=== PATIENT | male | born 1940 | race Caucasian/White ===

== ENCOUNTER 2019-07-05 16:19 | Emergency (ER) | payer MEDICARE, MEDICAID ==
--- OUTSIDE RECORDS SUMMARY | 2019-07-05 16:33 | XMS REPORT ---
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 Chronic Chronic Diagnosis Active Blade systolic systolic 05-18 Michael (congestive (congestive [id number] ) heart ) heart failure failure Paroxysmal Paroxysmal Diagnosis Active Blade atrial atrial 05-18 Michael fibrillatio fibrillatio [id number] n n 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 05-18 Michael mellitus mellitus [id number] without without complicatio complicatio ns ns Diverticuli Diverticuli Diagnosis Active Blade tis of tis of 05-18 Michael intestine, intestine, [id number] part part unspecified unspecified , without , without perforation perforation or abscess or abscess without without bleeding bleeding Anemia, Anemia, Diagnosis Active Blade unspecified unspecified 05-18 Michael [id number] Benign Benign Diagnosis Active Blade prostatic prostatic Michael hyperplasia hyperplasia [id number] without without lower lower urinary urinary tract tract symptoms symptoms Lymphocytop Lymphocytop Diagnosis Active Blade enia enia Michael [id number] Encounter Encounter Diagnosis Active Blade for mary ellen Rodriguez attention attention [id number] to to colostomy 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 (current) (current) Michael use of use of [id number] anticoagula anticoagula nts nts Personal Personal Diagnosis Active Blade history of history of Michael 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 (TIA), and (TIA), and cerebral cerebral infarction infarction without without residual residual deficits deficits Presence of Presence of Diagnosis Active Blade cardiac cardiac Michael pacemaker pacemaker [id number] Presence of Presence of Diagnosis Active Blade 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 [id number] Personal Personal Diagnosis Active Blade history of history of Michael nicotine nicotine [id number] dependence dependence Problems Problems Diagnosis Active Blade related to related to Michael living living [id number] alone alone Pain frequent Pain Mgmt Resolve 2018-052019-04-20 [place] pain d 05-21 10:55:00 [place] 10:30: [id number] 00 Cardio edema Cardiovasc Active 2018-05 [place] ular 05-21 [place] 10:30: [id number] 00 Cardio knowledge/s Cardiovasc Active 2018-05 [place] kill ular 05-21 [place] deficit: pt 10:30: [id number] 00 Respiratory dyspnea Respirator Resolve 2018-052019-05-17 [place] present y d 05-21 10:45:00 [place] 10:30: [id number] 00 Endo/Justice newly Endo/Justice Resolve 2018-052019-04-08 Lolis diagnosed d 05-21 09:45:00 [place] diabetes 10:30: [id number] 00 Endo/Justice diabetic Endo/Justice Resolve 2018-052019-04-08 Lolis foot care d 05-21 09:45:00 [place] 10:30: [id number] 00 Endo/Justice anti-coagul Endo/Justice Resolve 2018-052019-04-08 Lolis ation d 05-21 09:45:00 [place] therapy 10:30: [id number] 00 Sensory impaired Sensory Resolve 2018-052019-04-27 [place] hearing d 05-21 10:45:00 [place] 10:30: [id number] 00 Integument skin Integument Resolve 2018-052019-03-30 Lolis integrity d 05-21 11:40:00 [place] risk 10:30: [id number] 00 Nutrition nutritional Nutrition Resolve 2018-052019-03-30 [place]olis restriction d 05-21 11:40:00 Elmer s 10:30: [id number] 00 Elimination ostomy Eliminatio Resolve 2018-052019-03-30 [place] present n d 05-21 11:40:00 [place] 10:30: [id number] 00 Neuro confusion Neuro/Emot Resolve 2018-052019-05-17 [place] present ion d 05-21 10:45:00 [place] 10:30: [id number] 00 Neuro impaired Neuro/Emot Resolve 2018-052019-05-17 [place]olis decision-ma ion d 05-21 10:45:00 [place] nir 10:30: [id number] 00 Activity ADL Activity Resolve 2018-052019-05-17 [place] assistance d 05-21 10:45:00 [place] required 10:30: [id number] 00 Activity self-care Activity Resolve 2018-052019-04-27 [place] deficit d 05-21 10:45:00 [place] 10:30: [id number] 00 Safety structural Safety Resolve 2018-052019-05-05 Lolis barriers d 05-21 10:55:00 [place] present 10:30: [id number] 00 Safety fall risk Safety Resolve 2018-052019-05-05 Lolis factor d 05-21 10:55:00 [place] present 10:30: [id number] 00 Safety risk for Safety Resolve 2018-052019-05-05 Lolis hospitaliza d 05-21 10:55:00 [place] tion 10:30: [id number] 00 Safety can be left Safety Active 2018-05 [place]olis alone for 05-21 [place] only short 10:30: [id number] periods 00 Safety safety Safety Resolve 2018-052019-05-05 QUALITY hazards d 05-21 10:55:00 REALTIME present 10:30: 00 Medication oral med Meds Resolve 2018-052019-04-20 [place]olis assistance d 05-21 10:55:00 [place] required 10:30: [id number] 00 Medication knowledge/s Meds Resolve 2018-052019-04-20 [place]olis kill d 05-21 10:55:00 [place] deficit: pt 10:30: [id number] 00 Musculoskel transfer Musculoske Resolve 2018-052019-04-27 [place]olis etal assistance letal d 05-21 10:45:00 [place] required 10:30: [id number] 00 Musculoskel requires Musculoske Resolve 2018-052019-04-27 Lolis etal human letal d 05-21 10:45:00 [place] assist to 10:30: [id number] leave home 00 Cath/Ostomy k/s Cath\Ostom Resolve 2018-052019-03-30 [place] /GI deficit: y\GI Care d 05-21 11:40:00 [place] cath/ost/GI 10:30: [id number] care - pt 00 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/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/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 PT/OT: Resolve 2018-052019-05-17 Jaquan urance rdination Balance/En d 05-21 10:45:00 [place] deficit durance 12:07: [id number] 00 OT: Self self-care OT: Resolve 2018-052019-05-17 Jaquan Care deficit Self-Care d 05-21 10:45:00 [place] 12:07: [id number] 00 Gait/Locomo stair PT/OT: Resolve 2018-052019-05-17 Jaquan tion management Gait/Locom d 05-21 10:45:00 [place] problems req otion 12:07: [id number] 00 Gait/[place] gait PT/OT: Resolve 2018-052019-05-17 Jaquan tion deficit Gait/Locom d 05-21 10:45:00 [place] problems otion 12:07: [id number] 00 Elimination ostomy Eliminatio Resolve 2018-052019-04-20 Blade present n d 06-01 10:55:00 Michael 09:55: [id number] 00 Elimination urinary Eliminatio Resolve 2018-052019-05-17 Blade incontinenc n d 2- 10:45:00 Michael coronel 10:45: [id number] 00 Elimination ostomy Eliminatio Resolve 2018-052019-05-17 Blade present n d 2-11 10:45:00 Michael 10:45: [id number] 00 Safety risk for Safety Active 2018-05 Blade hospitaliza 07-11 Michael tion 10:50: [id number] 00 Activity ADL Activity Unknown 2018-05 Blade assistance Rodriguez required 10:45: [id number] 00 Safety fall risk Safety Active 2018-05 Blade factor Rodriguez present 10:45: [id number] 00 Sensory impaired Sensory Active 2019- Cherrise hearing 06-07 [place] 11:30: [id number] 00 Elimination urinary Eliminatio Active 2019-0 Cherrise incontinenc n 06-07 [place]is e 11:30: [id number] 00 Elimination urinary Eliminatio Active Cherrise urgency n 06-07 [place] 11:30: [id number] 00 Elimination ostomy Eliminatio Active 2019-0 Cherrise present n 06-07 [employer] 11:30: [id number] 00 Neuro impaired Neuro/Emot Active Cherrise decision-ma ion 06-07 [employer] nir 11:30: [id number] 00 Safety structural Safety Active Cherrise barriers 06-07 [employer] present 11:30: [id number] 00 Safety sanitation Safety Active Cherrise hazards 06-[address] [employer] present 11:30: [id number] 00 Musculoskel requires Musculoske Active Cherrise etal human letal 06-07 [employer] assist to 11:30: [id number] leave home 00 Allergies, Adverse Reactions, Alerts Allergy Allergy Status Severity Reaction(s) Onset Inactive Treating Comments Name Type Date Date Clinician Unknown None Active Unknown None Unknown No Known Allergies For This Patient Medications Ordered Filled Start Stop Current Ordering Indication Dosage Frequency Signature Comments Components Medication Medication Date Date Medication? Clinician (SIG) Name Name Eliquis 2.5 Eliquis 2.5 2018-05 Yes [place] Unknown Unknown mg tablet mg tablet -04 Fatimah STRONG metoprolol metoprolol 2018-05 Yes [place] Unknown Unknown tartrate tartrate -04 Fatimah STRONG 100 mg 100 mg tablet tablet Cardizem CD Cardizem CD 2018-05 Yes [place] Unknown Unknown 120 mg 120 mg 1-04 Fatimah STRONG capsule,ext capsule,ext ended ended release release multivitami multivitami 2018-05 Yes [place] Unknown Unknown n with n with - Fatimah STRONG minerals minerals tablet tablet Co Q-10 150 Co Q-10 150 2018-05 Yes [place] Unknown Unknown mg capsule mg capsule 1-04 Fatimah STRONG niacin ER niacin ER 2018-05 Yes [place] Unknown Unknown 250 mg 250 mg 1-04 Fatimah STRONG tablet,exte tablet,exte nded nded release release iron 27mg iron 27mg 2018-05 Yes [place] Unknown Unknown 1-04 Fatimah STRONG pravastatin pravastatin 2018-05 Yes [place] Unknown Unknown 40 mg 40 mg - Fatimah STRONG tablet tablet Vital Signs Vital Name Observation Time Observation Value Comments SYSTOLIC mm[Hg] 2019-06-14 18:10:06 118 mm[Hg] mm[Hg] Method: Sit SYSTOLIC mm[Hg] 2019-03-21 18:08:41 128 mm[Hg] mm[Hg] Method: Stand DIASTOLIC mm[Hg] 2019-06-14 18:10:06 64 mm[Hg] mm[Hg] Method: Sit DIASTOLIC mm[Hg] 2019-03-21 18:08:41 70 mm[Hg] mm[Hg] Method: Stand PULSE 2019-06-14 18:10:06 64 /min /min RESP RATE 2019-06-14 18:10:06 16 /min /min TEMP 2019-06-14 18:10:06 96.9 [degF] Procedures This patient has no known procedures. Results This patient has no known results.
--- OUTSIDE RECORDS SUMMARY | 2019-07-05 16:33 | XMS REPORT ---
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 05-18 Michael (congestive (congestive [id number] ) heart ) heart failure failure Paroxysmal Paroxysmal Diagnosis Active Blade atrial atrial 05-18 Michael fibrillatio fibrillatio [id number] n n 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 05-18 Michael mellitus mellitus [id number] without without complicatio complicatio ns ns Diverticuli Diverticuli Diagnosis Active Blade tis of tis of 05-18 Michael intestine, intestine, [id number] part part unspecified unspecified , without , without perforation perforation or abscess or abscess without without bleeding bleeding Anemia, Anemia, Diagnosis Active Blade unspecified unspecified 05-18 Michael [id number] Benign Benign Diagnosis Active Blade prostatic prostatic Michael hyperplasia hyperplasia [id number] without without lower lower urinary urinary tract tract symptoms symptoms Lymphocytop Lymphocytop Diagnosis Active Blade enia enia Michael [id number] Encounter Encounter Diagnosis Active Blade for mary ellen Rodriguez attention attention [id number] to to colostomy colostomy [facility] Diagnosis Active Blade (current) (current) Michael use of use of [id number] anticoagula anticoagula nts nts Personal Personal Diagnosis Active Blade history of history of Michael transient transient [id number] ischemic ischemic attack attack (TIA), and (TIA), and cerebral cerebral infarction infarction without without residual residual deficits deficits Presence of Presence of Diagnosis Active Blade cardiac cardiac Michael pacemaker pacemaker [id number] Presence of Presence of Diagnosis Active Blade 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 [id number] Personal Personal Diagnosis Active Blade history of history of Michael nicotine nicotine [id number] dependence dependence Problems Problems Diagnosis Active Blade related to related to Michael living living [id number] alone alone Pain frequent Pain Mgmt Resolve 2018-052019-04-20 [place] pain d 05-21 10:55:00 [place] 10:30: [id number] 00 Cardio edema Cardiovasc Active 2018-05 [place] ular 05-21 [place] 10:30: [id number] 00 Cardio knowledge/s Cardiovasc Active 2018-05 [place] kill ular 05-21 [place] deficit: pt 10:30: [id number] 00 Respiratory dyspnea Respirator Resolve 2018-052019-05-17 [place] present y d 05-21 10:45:00 [place] 10:30: [id number] 00 Endo/Justice newly Endo/Justice Resolve 2018-052019-04-08 [place] diagnosed d 05-21 09:45:00 [place] diabetes 10:30: [id number] 00 Endo/Justice diabetic Endo/Justice Resolve 2018-052019-04-08 [place] foot care d 05-21 09:45:00 [place] 10:30: [id number] 00 Endo/Justice anti-coagul Endo/Justice Resolve 2018-052019-04-08 [place] ation d 05-21 09:45:00 [place] therapy 10:30: [id number] 00 Sensory impaired Sensory Resolve 2018-052019-04-27 [place] hearing d 05-21 10:45:00 [place] 10:30: [id number] 00 Integument skin Integument Resolve 2018-052019-03-30 [place] integrity d 05-21 11:40:00 [place] risk 10:30: [id number] 00 Nutrition nutritional Nutrition Resolve 2018-052019-03-30 [place] restriction d 05-21 11:40:00 [place] s 10:30: [id number] 00 Elimination ostomy Eliminatio Resolve 2018-052019-03-30 [place] present n d 05-21 11:40:00 [place] 10:30: [id number] 00 Neuro confusion Neuro/Emot Resolve 2018-052019-05-17 [place] present ion d 05-21 10:45:00 [place] 10:30: [id number] 00 Neuro impaired Neuro/Emot Resolve 2018-052019-05-17 [place] decision-ma ion d 05-21 10:45:00 [place] nir 10:30: [id number] 00 Activity ADL Activity Resolve 2018-052019-05-17 [place] assistance d 05-21 10:45:00 [place] required 10:30: [id number] 00 Activity self-care Activity Resolve 2018-052019-04-27 [place] deficit d 05-21 10:45:00 [place] 10:30: [id number] 00 Safety structural Safety Resolve 2018-052019-05-05 [place] barriers d 05-21 10:55:00 [place] present 10:30: [id number] 00 Safety fall risk Safety Resolve 2018-052019-05-05 [place] factor d 05-21 10:55:00 [place] present 10:30: [id number] 00 Safety risk for Safety Resolve 2018-052019-05-05 [place] hospitaliza d 05-21 10:55:00 [place] tion 10:30: [id number] 00 Safety can be left Safety Active 2018-05 [place] alone for 05-21 [place] only short 10:30: [id number] periods 00 Safety safety Safety Resolve 2018-052019-05-05 QUALITY hazards d 05-21 10:55:00 REALTIME present 10:30: 00 Medication oral med Meds Resolve 2018-052019-04-20 [place] assistance d 05-21 10:55:00 [place] required 10:30: [id number] 00 Medication knowledge/s Meds Resolve 2018-052019-04-20 [place] kill d 05-21 10:55:00 [place] deficit: pt 10:30: [id number] 00 Musculoskel transfer Musculoske Resolve 2018-052019-04-27 [place] etal assistance letal d 05-21 10:45:00 Foreign required 10:30: [id number] 00 Musculoskel requires Musculoske Resolve 2018-052019-04-27 [place] etal human letal d 05-21 10:45:00 [place] assist to 10:30: [id number] leave home 00 Cath/Ostomy k/s Cath\Ostom Resolve 2018-052019-03-30 [place] /GI deficit: y\GI Care d 05-21 11:40:00 [place] cath/ost/GI 10:30: [id number] care - pt 00 Balance/End 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/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 PT/OT: Resolve 2018-052019-05-17 Jaquan onealance rdination Balance/En d 05-21 10:45:00 [place] deficit durance 12:07: [id number] 00 OT: Self self-care OT: Resolve 2018-052019-05-17 Jaquan Care deficit Self-Care d 05-21 10:45:00 [place] 12:07: [id number] 00 Gait/Locomo stair PT/OT: Resolve 2018-052019-05-17 Jaquan tion management Gait/Locom d 05-21 10:45:00 [place] problems req otion 12:07: [id number] 00 Gait/[place] gait PT/OT: Resolve 2018-052019-05-17 Jaquan tion deficit Gait/Locom d 05-21 10:45:00 [place] problems otion 12:07: [id number] 00 Elimination ostomy Eliminatio Resolve 2018-052019-04-20 Blade present n d 1-15 10:55:00 Michael 09:55: [id number] 00 Elimination urinary Eliminatio Resolve 2018-052019-05-17 Blade incontinenc n d 2-11 10:45:00 Michael coronel 10:45: [id number] 00 Elimination ostomy Eliminatio Resolve 2018-052019-05-17 Blade present n d 2-11 10:45:00 Michael 10:45: [id number] 00 Safety risk for Safety Active 2018-05 Blade hospitaliza 07-11 Michael tion 10:50: [id number] 00 Activity ADL Activity Unknown 2018-05 Blade assistance Rodriguez required 10:45: [id number] 00 Safety fall risk Safety Active 2018-05 Blade factor Rodriguez present 10:45: [id number] 00 Allergies, Adverse Reactions, Alerts Allergy Allergy Status Severity Reaction(s) Onset Inactive Treating Comments Name Type Date Date Clinician Unknown None Active Unknown None Unknown No Known Allergies For This Patient Medications Ordered Filled Start Stop Current Ordering Indication Dosage Frequency Signature Comments Components Medication Medication Date Date Medication? Clinician (SIG) Name Name Eliquis 2.5 Eliquis 2.5 2018-05 Yes [place] Unknown Unknown mg tablet mg tablet 05-21 Fatimah STRONG metoprolol metoprolol 2018-05 Yes [place] Unknown Unknown tartrate tartrate 1-04 Fatimah STRONG 100 mg 100 mg tablet tablet Cardizem CD Cardizem CD 2018-05 Yes [place] Unknown Unknown 120 mg 120 mg 1-04 Fatimah STRONG capsule,ext capsule,ext ended ended release release multivitami multivitami 2018-05 Yes [place] Unknown Unknown n with n with - Fatimah STRONG minerals minerals tablet tablet Co Q-10 150 Co Q-10 150 2018-05 Yes [place] Unknown Unknown mg capsule mg capsule -04 Fatimah STRONG niacin ER niacin ER 2018-05 Yes [place] Unknown Unknown 250 mg 250 mg -04 Fatimah STRONG tablet,exte tablet,exte nded nded release release iron 27mg iron 27mg 2018-05 Yes [place] Unknown Unknown 1-04 Fatimah STRONG pravastatin pravastatin 2018-05 Yes [place] Unknown Unknown 40 mg 40 mg - Fatimah STRONG tablet tablet Vital Signs Vital Name Observation Time Observation Value Comments SYSTOLIC mm[Hg] 2019-05-24 18:09:45 112 mm[Hg] mm[Hg] Method: Sit SYSTOLIC mm[Hg] 2019-03-21 18:08:41 128 mm[Hg] mm[Hg] Method: Stand DIASTOLIC mm[Hg] 2019-05-24 18:09:45 68 mm[Hg] mm[Hg] Method: Sit DIASTOLIC mm[Hg] 2019-03-21 18:08:41 70 mm[Hg] mm[Hg] Method: Stand PULSE 2019-05-24 18:09:45 72 /min /min RESP RATE 2019-05-24 18:09:45 16 /min /min TEMP 2019-05-24 18:09:45 98.1 [degF] Procedures This patient has no known procedures. Results This patient has no known results.
--- OUTSIDE RECORDS SUMMARY | 2019-07-05 16:33 | XMS REPORT ---
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 Chronic Chronic Diagnosis Active Blade systolic systolic 05-18 Michael (congestive (congestive [id number] ) heart ) heart failure failure Paroxysmal Paroxysmal Diagnosis Active Blade atrial atrial 05-18 Michael fibrillatio fibrillatio [id number] n n 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 05-18 Michael mellitus mellitus [id number] without without complicatio complicatio ns ns Diverticuli Diverticuli Diagnosis Active Blade tis of tis of 05-18 Michael intestine, intestine, [id number] part part unspecified unspecified , without , without perforation perforation or abscess or abscess without without bleeding bleeding Anemia, Anemia, Diagnosis Active Blade unspecified unspecified 05-18 Michael [id number] Benign Benign Diagnosis Active Blade prostatic prostatic Michael hyperplasia hyperplasia [id number] without without lower lower urinary urinary tract tract symptoms symptoms Lymphocytop Lymphocytop Diagnosis Active Blade enia enia Michael [id number] Encounter Encounter Diagnosis Active Blade for mary ellen Rodriguez attention attention [id number] to to colostomy colostomy 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 Blade (current) (current) Michael use of use of [id number] anticoagula anticoagula nts nts Personal Personal Diagnosis Active Blade history of history of Michael transient transient [id number] ischemic ischemic attack attack (TIA), and (TIA), and cerebral cerebral infarction infarction without without residual residual deficits deficits Presence of Presence of Diagnosis Active Blade cardiac cardiac Michael pacemaker pacemaker [id number] Presence of Presence of Diagnosis Active Blade 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 [id number] Personal Personal Diagnosis Active Blade history of history of Michael nicotine nicotine [id number] dependence dependence Problems Problems Diagnosis Active Blade related to related to Michael living living [id number] alone alone Pain frequent Pain Mgmt Resolve 2018-052019-04-20 [place] pain d 05-21 10:55:00 [place] 10:30: [id number] 00 Cardio edema Cardiovasc Active 2018-05 [place]olis ular 05-21 [place] 10:30: [id number] 00 Cardio knowledge/s Cardiovasc Active 2018-05 Lolis kill ular 05-21 [place] deficit: pt 10:30: [id number] 00 Respiratory dyspnea Respirator Resolve 2018-052019-05-17 Lolis present y d 05-21 10:45:00 [place] 10:30: [id number] 00 Endo/Justice newly Endo/Justice Resolve 2018-052019-04-08 Lolis diagnosed d 05-21 09:45:00 [place] diabetes 10:30: [id number] 00 Endo/Justice diabetic Endo/Justice Resolve 2018-052019-04-08 Lolis foot care d 05-21 09:45:00 [place] 10:30: [id number] 00 Endo/Justice anti-coagul Endo/Justice Resolve 2018-052019-04-08 Lolis ation d 05-21 09:45:00 [place] therapy 10:30: [id number] 00 Sensory impaired Sensory Resolve 2018-052019-04-27 Lolis hearing d 05-21 10:45:00 [place] 10:30: [id number] 00 Integument skin Integument Resolve 2018-052019-03-30 Lolis integrity d 05-21 11:40:00 [place] risk 10:30: [id number] 00 Nutrition nutritional Nutrition Resolve 2018-052019-03-30 Lolis restriction d 05-21 11:40:00 [place] s 10:30: [id number] 00 Elimination ostomy Eliminatio Resolve 2018-052019-03-30 Lolis present n d 05-21 11:40:00 [place] 10:30: [id number] 00 Neuro confusion Neuro/Emot Resolve 2018-052019-05-17 Lolis present ion d 05-21 10:45:00 [place] 10:30: [id number] 00 Neuro impaired Neuro/Emot Resolve 2018-052019-05-17 Lolis decision-ma ion d 05-21 10:45:00 [place] nir 10:30: [id number] 00 Activity ADL Activity Resolve 2018-052019-05-17 Lolis assistance d 05-21 10:45:00 [place] required 10:30: [id number] 00 Activity self-care Activity Resolve 2018-052019-04-27 Lolis deficit d 05-21 10:45:00 [place] 10:30: [id number] 00 Safety structural Safety Resolve 2018-052019-05-05 Lolis barriers d 05-21 10:55:00 [place] present 10:30: [id number] 00 Safety fall risk Safety Resolve 2018-052019-05-05 Lolis factor d 05-21 10:55:00 [place] present 10:30: [id number] 00 Safety risk for Safety Resolve 2018-052019-05-05 Lolis hospitaliza d 05-21 10:55:00 [place] tion 10:30: [id number] 00 Safety can be left Safety Active 2018-05 Lolis alone for 05-21 [place] only short 10:30: [id number] 00 Safety safety Safety Resolve 2018-052019-05-05 QUALITY hazards d 05-21 10:55:00 REALTIME present 10:30: 00 Medication oral med Meds Resolve 2018-052019-04-20 Lolis assistance d 05-21 10:55:00 [place] required 10:30: [id number] 00 Medication knowledge/s Meds Resolve 2018-052019-04-20 Lolis kill d 05-21 10:55:00 [place] deficit: pt 10:30: [id number] 00 Musculoskel transfer Musculoske Resolve 2018-052019-04-27 Lolis etal assistance letal d 05-21 10:45:00 [place] required 10:30: [id number] 00 Musculoskel requires Musculoske Resolve 2018-052019-04-27 Lolis etal human letal d 05-21 10:45:00 Foreign assist to 10:30: [id number] leave home 00 Cath/Ostomy k/s Cath\Ostom Resolve 2018-052019-03-30 Lolis /GI deficit: y\GI Care d 05-21 11:40:00 [place] cath/ost/GI 10:30: [id number] care - pt 00 Balance/End balance/pharmacy clinical coordinator PT/OT: Resolve 2018-052019-05-17 Jaquan urance rdination Balance/En d 05-21 10:45:00 [place] deficit durance 12:07: [id number] 00 OT: Self self-care OT: Resolve 2018-052019-05-17 Jaquan Care deficit Self-Care d 05-21 10:45:00 [place] 12:07: [id number] 00 Gait/Locomo stair PT/OT: Resolve 2018-052019-05-17 Jaquan tion management Gait/Locom d 05-21 10:45:00 [place] problems req otion 12:07: [id number] 00 Gait/Locomo gait PT/OT: Resolve 2018-052019-05-17 Jaquan tion deficit Gait/Locom d 05-21 10:45:00 [place] problems otion 12:07: [id number] 00 Elimination ostomy Eliminatio Resolve 2018-052019-04-20 Blade present n d 06-01 10:55:00 Michael 09:55: [id number] 00 Elimination urinary Eliminatio Resolve 2018-052019-05-17 Blade incontinenc n d 2- 10:45:00 Michael coronel 10:45: [id number] 00 Elimination ostomy Eliminatio Resolve 2018-052019-05-17 Blade present n d 2-11 10:45:00 Michael 10:45: [id number] 00 Safety risk for Safety Active 2018-05 Blade hospitaliza 07-11 Michael tion 10:50: [id number] 00 Activity ADL Activity Unknown 2018-05 Blade assistance Rodriguez required 10:45: [id number] 00 Safety fall risk Safety Active 2018-05 Blade factor Rodriguez present 10:45: [id number] 00 Sensory impaired Sensory Active 2019- Cherrise hearing 06-07 [place] 11:30: [id number] 00 Elimination urinary Eliminatio Active 2019-0 Cherrise incontinenc n 06-07 [place] e 11:30: [id number] 00 Elimination urinary Eliminatio Active Cherrise urgency n 06-07 [place] 11:30: [id number] 00 Elimination ostomy Eliminatio Active 2019-0 Cherrise present n 06-07 [place] 11:30: [id number] 00 Neuro impaired Neuro/Emot Active Cherrise decision-ma ion 06-07 [place] nir 11:30: [id number] 00 Safety structural Safety Active Cherrise barriers 06-07 [place] present 11:30: [id number] 00 Safety sanitation Safety Active Cherrise hazards 06-07 [place] present 11:30: [id number] 00 Musculoskel requires Musculoske Active Cherrise etal human letal 06-07 [place] assist to 11:30: [id number] leave home 00 Allergies, Adverse Reactions, Alerts Allergy Allergy Status Severity Reaction(s) Onset Inactive Treating Comments Name Type Date Date Clinician Unknown None Active Unknown None Unknown No Known Allergies For This Patient Medications Ordered Filled Start Stop Current Ordering Indication Dosage Frequency Signature Comments Components Medication Medication Date Date Medication? Clinician (SIG) Name Name Eliquis 2.5 Eliquis 2.5 2018-05 Yes [place] Unknown Unknown mg tablet mg tablet -04 Fatimah STRONG metoprolol metoprolol 2018-05 Yes [place] Unknown Unknown tartrate tartrate 1-04 Fatimah STRONG 100 mg 100 mg tablet tablet Cardizem CD Cardizem CD 2018-05 Yes [place] Unknown Unknown 120 mg 120 mg 1-04 Fatimah STRONG capsule,ext capsule,ext ended ended release release multivitami multivitami 2018-05 Yes [place] Unknown Unknown n with n with - Fatimah STRONG minerals minerals tablet tablet Co Q-10 150 Co Q-10 150 2018-05 Yes [place] Unknown Unknown mg capsule mg capsule 1-04 Fatimah STRONG niacin ER niacin ER 2018-05 Yes [place] Unknown Unknown 250 mg 250 mg 1-04 Fatimah STRONG tablet,exte tablet,exte nded nded release release iron 27mg iron 27mg 2018-05 Yes [place] Unknown Unknown 1-04 Fatimah STRONG pravastatin pravastatin 2018-05 Yes [place] Unknown Unknown 40 mg 40 mg -15 Fatimah STRONG tablet tablet Vital Signs Vital Name Observation Time Observation Value Comments SYSTOLIC mm[Hg] 2019-03-21 18:08:41 128 mm[Hg] mm[Hg] Method: Stand DIASTOLIC mm[Hg] 2019-03-21 18:08:41 70 mm[Hg] mm[Hg] Method: Stand Procedures This patient has no known procedures. Results This patient has no known results.
--- OUTSIDE RECORDS SUMMARY | 2019-07-05 16:33 | XMS REPORT ---
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 05-18 Michael (congestive (congestive [id number] ) heart ) heart failure failure Paroxysmal Paroxysmal Diagnosis Active Blade atrial atrial 05-18 Michael fibrillatio fibrillatio [id number] n n 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 05-18 Michael mellitus mellitus [id number] without without complicatio complicatio ns ns Diverticuli Diverticuli Diagnosis Active Blade tis of tis of 05-18 Michael intestine, intestine, [id number] part part unspecified unspecified , without , without perforation perforation or abscess or abscess without without bleeding bleeding Anemia, Anemia, Diagnosis Active Blade unspecified unspecified 05-18 Michael [id number] Benign Benign Diagnosis Active Blade prostatic prostatic Michael hyperplasia hyperplasia [id number] without without lower lower urinary urinary tract tract symptoms symptoms Lymphocytop Lymphocytop Diagnosis Active Blade enia enia Michael [id number] Encounter Encounter Diagnosis Active Blade for mary ellen Rodriguez attention attention [id number] to to colostomy 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 Active Blade (current) (current) Michael use of use of [id number] anticoagula anticoagula nts nts Personal Personal Diagnosis Active Blade history of history of Michael transient transient [id number] ischemic ischemic attack attack (TIA), and (TIA), and cerebral cerebral infarction infarction without without residual residual deficits deficits Presence of Presence of Diagnosis Active Blade cardiac cardiac Michael pacemaker pacemaker [id number] Presence of Presence of Diagnosis Active Blade 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 [id number] Personal Personal Diagnosis Active Blade history of history of Michael nicotine nicotine [id number] dependence dependence Problems Problems Diagnosis Active Blade related to related to Michael living living [id number] alone alone Pain frequent Pain Mgmt Resolve 2018-052019-04-20 Lolis pain d 05-21 10:55:00 [place] 10:30: [id number] 00 Cardio edema Cardiovasc Active 2018-05 [place]olis ular 05-21 [place] 10:30: [id number] 00 Cardio knowledge/s Cardiovasc Active 2018-05 Lolis kill ular 05-21 [place] deficit: pt 10:30: [id number] 00 Respiratory dyspnea Respirator Resolve 2018-052019-05-17 Lolis present y d 05-21 10:45:00 [place] 10:30: [id number] 00 Endo/Justice newly Endo/Justice Resolve 2018-052019-04-08 Lolis diagnosed d 05-21 09:45:00 [place] diabetes 10:30: [id number] 00 Endo/Justice diabetic Endo/Justice Resolve 2018-052019-04-08 Lolis foot care d 05-21 09:45:00 [place] 10:30: [id number] 00 Endo/Justice anti-coagul Endo/Justice Resolve 2018-052019-04-08 Lolis ation d 05-21 09:45:00 [place] therapy 10:30: [id number] 00 Sensory impaired Sensory Resolve 2018-052019-04-27 Lolis hearing d 05-21 10:45:00 [place] 10:30: [id number] 00 Integument skin Integument Resolve 2018-052019-03-30 Lolis integrity d 05-21 11:40:00 [place] risk 10:30: [id number] 00 Nutrition nutritional Nutrition Resolve 2018-052019-03-30 Lolis restriction d 05-21 11:40:00 [place] s 10:30: [id number] 00 Elimination ostomy Eliminatio Resolve 2018-052019-03-30 Lolis present n d 05-21 11:40:00 [place] 10:30: [id number] 00 Neuro confusion Neuro/Emot Resolve 2018-052019-05-17 Lolis present ion d 05-21 10:45:00 [place] 10:30: [id number] 00 Neuro impaired Neuro/Emot Resolve 2018-052019-05-17 Lolis decision-ma ion d 05-21 10:45:00 [place] nir 10:30: [id number] 00 Activity ADL Activity Resolve 2018-052019-05-17 Lolis assistance d 05-21 10:45:00 [place] required 10:30: [id number] 00 Activity self-care Activity Resolve 2018-052019-04-27 Lolis deficit d 05-21 10:45:00 [place] 10:30: [id number] 00 Safety structural Safety Resolve 2018-052019-05-05 Lolis barriers d 05-21 10:55:00 [place] present 10:30: [id number] 00 Safety fall risk Safety Resolve 2018-052019-05-05 Lolis factor d 05-21 10:55:00 [place] present 10:30: [id number] 00 Safety risk for Safety Resolve 2018-052019-05-05 Lolis hospitaliza d 05-21 10:55:00 [place] tion 10:30: [id number] 00 Safety can be left Safety Active 2018-05 Lolis alone for 05-21 [place] only short 10:30: [id number] 00 Safety safety Safety Resolve 2018-052019-05-05 QUALITY hazards d 05-21 10:55:00 REALTIME present 10:30: 00 Medication oral med Meds Resolve 2018-052019-04-20 Lolis assistance d 05-21 10:55:00 [place] required 10:30: [id number] 00 Medication knowledge/s Meds Resolve 2018-052019-04-20 Lolis kill d 05-21 10:55:00 [place] deficit: pt 10:30: [id number] 00 Musculoskel transfer Musculoske Resolve 2018-052019-04-27 Lolis etal assistance letal d 05-21 10:45:00 [place] required 10:30: [id number] 00 Musculoskel requires Musculoske Resolve 2018-052019-04-27 Lolis etal human letal d 05-21 10:45:00 [place] assist to 10:30: [id number] leave home 00 Cath/Ostomy k/s Cath\Ostom Resolve 2018-052019-03-30 Lolis /GI deficit: y\GI Care d 05-21 11:40:00 [place] cath/ost/GI 10:30: [id number] care - pt 00 Balance/End balance/orthodontic treatment coordinator PT/OT: Resolve 2018-052019-05-17 Jaquan urance rdination Balance/En d 05-21 10:45:00 [place] deficit durance 12:07: [id number] 00 OT: Self self-care OT: Resolve 2018-052019-05-17 Jaquan Care deficit Self-Care d 05-21 10:45:00 [place] 12:07: [id number] 00 Gait/Locomo stair PT/OT: Resolve 2018-052019-05-17 Jaquan tion management Gait/Locom d 05-21 10:45:00 [place] problems req otion 12:07: [id number] 00 Gait/[place]ocomo gait PT/OT: Resolve 2018-052019-05-17 Jaquan tion deficit Gait/Locom d 05-21 10:45:00 [place] problems otion 12:07: [id number] 00 Elimination ostomy Eliminatio Resolve 2018-052019-04-20 Blade present n d 06-01 10:55:00 Michael 09:55: [id number] 00 Elimination urinary Eliminatio Resolve 2018-052019-05-17 Blade incontinenc n d 2- 10:45:00 Michael coronel 10:45: [id number] 00 Elimination ostomy Eliminatio Resolve 2018-052019-05-17 Blade present n d 2-11 10:45:00 Michael 10:45: [id number] 00 Safety risk for Safety Active 2018-05 Blade hospitaliza 07-11 Michael tion 10:50: [id number] 00 Activity ADL Activity Unknown 2018-05 Blade assistance Rodriguez required 10:45: [id number] 00 Safety fall risk Safety Active 2018-05 Blade factor Rodriguez present 10:45: [id number] 00 Sensory impaired Sensory Active 2019- Cherrise hearing 06-07 [place] 11:30: [id number] 00 Elimination urinary Eliminatio Active 2019-0 Cherrise incontinenc n 06-07 [place] e 11:30: [id number] 00 Elimination urinary Eliminatio Active Cherrise urgency n 06-07 [place] 11:30: [id number] 00 Elimination ostomy Eliminatio Active 2019-0 Cherrise present n 06-07 [place] 11:30: [id number] 00 Neuro impaired Neuro/Emot Active Cherrise decision-ma ion 06-07 [place] nir 11:30: [id number] 00 Safety structural Safety Active Cherrise barriers 06-07 [place] present 11:30: [id number] 00 Safety sanitation Safety Active Cherrise hazards 06-07 [place] present 11:30: [id number] 00 Musculoskel requires Musculoske Active Cherrise etal human letal 06-07 [place] assist to 11:30: [id number] leave home 00 Allergies, Adverse Reactions, Alerts Allergy Allergy Status Severity Reaction(s) Onset Inactive Treating Comments Name Type Date Date Clinician Unknown None Active Unknown None Unknown No Known Allergies For This Patient Medications Ordered Filled Start Stop Current Ordering Indication Dosage Frequency Signature Comments Components Medication Medication Date Date Medication? Clinician (SIG) Name Name Eliquis 2.5 Eliquis 2.5 2018-05 Yes [place] Unknown Unknown mg tablet mg tablet 1-04 Fatimah STRONG metoprolol metoprolol 2018-05 Yes [place] Unknown Unknown tartrate tartrate 1-04 Fatimah STRONG 100 mg 100 mg tablet tablet Cardizem CD Cardizem CD 2018-05 Yes [place] Unknown Unknown 120 mg 120 mg 1-04 Fatimah STRONG capsule,ext capsule,ext ended ended release release multivitami multivitami 2018-05 Yes [place] Unknown Unknown n with n with - Fatimah STRONG minerals minerals tablet tablet Co Q-10 150 Co Q-10 150 2018-05 Yes [place] Unknown Unknown mg capsule mg capsule 1-04 Fatimah STRONG niacin ER niacin ER 2018-05 Yes [place] Unknown Unknown 250 mg 250 mg 1-04 Fatimah STRONG tablet,exte tablet,exte nded nded release release iron 27mg iron 27mg 2018-05 Yes [place] Unknown Unknown 1-04 Fatimah STRONG pravastatin pravastatin 2018-05 Yes [place] Unknown Unknown 40 mg 40 mg -15 Fatimah STRONG tablet tablet Vital Signs Vital Name Observation Time Observation Value Comments SYSTOLIC mm[Hg] 2019-06-07 18:09:59 132 mm[Hg] mm[Hg] Method: Sit SYSTOLIC mm[Hg] 2019-03-21 18:08:41 128 mm[Hg] mm[Hg] Method: Stand DIASTOLIC mm[Hg] 2019-06-07 18:09:59 64 mm[Hg] mm[Hg] Method: Sit DIASTOLIC mm[Hg] 2019-03-21 18:08:41 70 mm[Hg] mm[Hg] Method: Stand PULSE 2019-06-07 18:09:59 70 /min /min RESP RATE 2019-06-07 18:09:59 16 /min /min TEMP 2019-06-07 18:09:59 99.7 [degF] Procedures This patient has no known procedures. Results This patient has no known results.
--- OUTSIDE RECORDS SUMMARY | 2019-07-05 16:33 | XMS REPORT ---
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 with heart with heart failure failure Chronic Chronic Diagnosis Active Blade systolic systolic 05-18 Michael (congestive (congestive [id number] ) heart ) heart failure failure Paroxysmal Paroxysmal Diagnosis Active Blade atrial atrial 05-18 Michael fibrillatio fibrillatio [id number] n n 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 05-18 Michael mellitus mellitus [id number] without without complicatio complicatio ns ns Diverticuli Diverticuli Diagnosis Active Blade tis of tis of 05-18 Michael intestine, intestine, [id number] part part unspecified unspecified , without , without perforation perforation or abscess or abscess without without bleeding bleeding Anemia, Anemia, Diagnosis Active Blade unspecified unspecified 05-18 Michael [id number] Benign Benign Diagnosis Active Blade prostatic prostatic Michael hyperplasia hyperplasia [id number] without without lower lower urinary urinary tract tract symptoms symptoms Lymphocytop Lymphocytop Diagnosis Active Blade enia enia Michael [id number] Encounter Encounter Diagnosis Active Blade for mary ellen Rodriguez attention attention [id number] to to colostomy 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 Blade (current) (current) Michael use of use of [id number] anticoagula anticoagula nts nts Personal Personal Diagnosis Active Blade history of history of Michael 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 (TIA), and (TIA), and cerebral cerebral infarction infarction without without residual residual deficits deficits Presence of Presence of Diagnosis Active Blade cardiac cardiac Michael pacemaker pacemaker [id number] Presence of Presence of Diagnosis Active Blade 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 [id number] Personal Personal Diagnosis Active Blade history of history of Michael nicotine nicotine [id number] dependence dependence Problems Problems Diagnosis Active Blade related to related to Michael living living [id number] alone alone Pain frequent Pain Mgmt Resolve 2018-052019-04-20 Lolis pain d 05-21 10:55:00 [place] 10:30: [id number] 00 Cardio edema Cardiovasc Active 2018-05 [place]olis ular 05-21 [place] 10:30: [id number] 00 Cardio knowledge/s Cardiovasc Active 2018-05 Lolis kill ular 05-21 Cook deficit: pt 10:30: [id number] 00 Respiratory dyspnea Respirator Resolve 2018-052019-05-17 [place]olis present y d 05-21 10:45:00 [place] 10:30: [id number] 00 Endo/Justice newly Endo/Justice Resolve 2018-052019-04-08 Lolis diagnosed d 05-21 09:45:00 [place] diabetes 10:30: [id number] 00 Endo/Justice diabetic Endo/Justice Resolve 2018-052019-04-08 Lolis foot care d 05-21 09:45:00 [place] 10:30: [id number] 00 Endo/Justice anti-coagul Endo/Justice Resolve 2018-052019-04-08 Lolis ation d 05-21 09:45:00 Cook therapy 10:30: [id number] 00 Sensory impaired Sensory Resolve 2018-052019-04-27 Lolis hearing d 05-21 10:45:00 [place] 10:30: [id number] 00 Integument skin Integument Resolve 2018-052019-03-30 Lolis integrity d 05-21 11:40:00 [place] risk 10:30: [id number] 00 Nutrition nutritional Nutrition Resolve 2018-052019-03-30 Lolis restriction d 05-21 11:40:00 Cook s 10:30: [id number] 00 Elimination ostomy Eliminatio Resolve 2018-052019-03-30 Lolis present n d 05-21 11:40:00 [place] 10:30: [id number] 00 Neuro confusion Neuro/Emot Resolve 2018-052019-05-17 Lolis present ion d 05-21 10:45:00 [place] 10:30: [id number] 00 Neuro impaired Neuro/Emot Resolve 2018-052019-05-17 Lolis decision-ma ion d 05-21 10:45:00 [place] nir 10:30: [id number] 00 Activity ADL Activity Resolve 2018-052019-05-17 Lolis assistance d 05-21 10:45:00 [place] required 10:30: [id number] 00 Activity self-care Activity Resolve 2018-052019-04-27 Lolis deficit d 05-21 10:45:00 [place] 10:30: [id number] 00 Safety structural Safety Resolve 2018-052019-05-05 Lolis barriers d 05-21 10:55:00 Foreign present 10:30: [id number] 00 Safety fall risk Safety Resolve 2018-052019-05-05 Lolis factor d 05-21 10:55:00 [place] present 10:30: [id number] 00 Safety risk for Safety Resolve 2018-052019-05-05 Lolis hospitaliza d 05-21 10:55:00 Cook tion 10:30: [id number] 00 Safety can be left Safety Active 2018-05 Lolis alone for 05-21 Cook only short 10:30: [id number] periods 00 Safety safety Safety Resolve 2018-052019-05-05 QUALITY hazards d 05-21 10:55:00 REALTIME present 10:30: 00 Medication oral med Meds Resolve 2018-052019-04-20 Lolis assistance d 05-21 10:55:00 [place] required 10:30: [id number] 00 Medication knowledge/s Meds Resolve 2018-052019-04-20 Lolis kill d 05-21 10:55:00 Cook deficit: pt 10:30: [id number] 00 Musculoskel transfer Musculoske Resolve 2018-052019-04-27 Lolis etal assistance letal d 05-21 10:45:00 [place] required 10:30: [id number] 00 Musculoskel requires Musculoske Resolve 2018-052019-04-27 Lolis etal human letal d 05-21 10:45:00 Foreign assist to 10:30: [id number] leave home 00 Cath/Ostomy k/s Cath\Ostom Resolve 2018-052019-03-30 Lolis /GI deficit: y\GI Care d 05-21 11:40:00 Cook cath/ost/GI 10:30: [id number] care - pt 00 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 PT/OT: Resolve 2018-052019-05-17 Jaquan urance rdination Balance/En d 05-21 10:45:00 [place] deficit durance 12:07: [id number] 00 OT: Self self-care OT: Resolve 2018-052019-05-17 Jaquan Care deficit Self-Care d 05-21 10:45:00 [place] 12:07: [id number] 00 Gait/Locomo stair PT/OT: Resolve 2018-052019-05-17 Jaquan tion management Gait/Locom d 05-21 10:45:00 [place] problems req otion 12:07: [id number] 00 Gait/[place]ocomo gait PT/OT: Resolve 2018-052019-05-17 Jaquan tion deficit Gait/Locom d 05-21 10:45:00 [place] problems otion 12:07: [id number] 00 Elimination ostomy Eliminatio Resolve 2018-052019-04-20 Blade present n d 06-01 10:55:00 Michael 09:55: [id number] 00 Elimination urinary Eliminatio Resolve 2018-052019-05-17 Blade incontinenc n d 06-28 10:45:00 Michael coronel 10:45: [id number] 00 Elimination ostomy Eliminatio Resolve 2018-052019-05-17 Blade present n d - 10:45:00 Michael 10:45: [id number] 00 Safety risk for Safety Active 2018-05 Blade hospitaliza 07-11 Rodriguez tion 10:50: [id number] 00 Activity ADL Activity Unknown 2018-05 Blade assistance Rodriguez required 10:45: [id number] 00 Safety fall risk Safety Active 2018-05 Blade factor Rodriguez present 10:45: [id number] 00 Sensory impaired Sensory Active Cherrise hearing 06-07 [place] 11:30: [id number] 00 Elimination urinary Eliminatio Resolve 2019-06-21 Cherrise incontinenc n d 06-07 10:55:00 [place] e 11:30: [id number] 00 Elimination urinary Eliminatio Resolve 2019-06-21 Cherrise urgency n d 06-07 10:55:00 [place] 11:30: [id number] 00 Elimination ostomy Eliminatio Active Cherrise present n 06-07 [place] 11:30: [id number] 00 Neuro impaired Neuro/Emot Active Cherrise decision-ma ion 06-07 [place] nir 11:30: [id number] 00 Safety structural Safety Active Cherrise barriers 06-07 [place] present 11:30: [id number] 00 Safety sanitation Safety Active Cherrise hazards 06-07 [place] present 11:30: [id number] 00 Musculoskel requires Musculoske Active Cherrise etal human letal 06-07 [place] assist to 11:30: [id number] leave home 00 Allergies, Adverse Reactions, Alerts Allergy Allergy Status Severity Reaction(s) Onset Inactive Treating Comments Name Type Date Date Clinician Unknown None Active Unknown None Unknown No Known Allergies For This Patient Medications Ordered Filled Start Stop Current Ordering Indication Dosage Frequency Signature Comments Components Medication Medication Date Date Medication? Clinician (SIG) Name Name Eliquis 2.5 Eliquis 2.5 2018-05 No [place] Unknown Unknown mg tablet mg tablet 05-21 Fatimah STRONG metoprolol metoprolol 2018-05 No Victor Manuel Unknown Unknown tartrate tartrate 05-21 Fatimah STRONG 100 mg 100 mg tablet tablet Cardizem CD Cardizem CD 2018-05 No [place] Unknown Unknown 120 mg 120 mg 05-21 Fatimah STRONG capsule,ext capsule,ext ended ended release release multivitami multivitami 2018-05 No [place] Unknown Unknown n with n with 05-21 Fatimah STRONG minerals minerals tablet tablet Co Q-10 150 Co Q-10 150 2018-05 No [place] Unknown Unknown mg capsule mg capsule 05-21 Fatimah STRONG niacin ER niacin ER 2018-05 No [place] Unknown Unknown 250 mg 250 mg - Fatimah STRONG tablet,exte tablet,exte nded nded release release iron 27mg iron 27mg 2018-05 No [place] Unknown Unknown - Fatimah STRONG pravastatin pravastatin 2018-05 Yes Victor Manuel Unknown Unknown 40 mg 40 mg 06-01 Fatimah STRONG tablet tablet Vital Signs Vital Name Observation Time Observation Value Comments SYSTOLIC mm[Hg] 2019-06-21 18:10:13 132 mm[Hg] mm[Hg] Method: Sit SYSTOLIC mm[Hg] 2019-03-21 18:08:41 128 mm[Hg] mm[Hg] Method: Stand DIASTOLIC mm[Hg] 2019-06-21 18:10:13 72 mm[Hg] mm[Hg] Method: Sit DIASTOLIC mm[Hg] 2019-03-21 18:08:41 70 mm[Hg] mm[Hg] Method: Stand PULSE 2019-06-21 18:10:13 73 /min /min RESP RATE 2019-06-21 18:10:13 16 /min /min TEMP 2019-06-21 18:10:13 97.1 [degF] Procedures This patient has no known procedures. Results This patient has no known results.
--- OUTSIDE RECORDS SUMMARY | 2019-07-05 16:33 | XMS REPORT ---
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 [id number] with heart with heart failure failure Chronic Chronic Diagnosis Active Blade systolic systolic 05-18 Michael (congestive (congestive [id number] ) heart ) heart failure failure Paroxysmal Paroxysmal Diagnosis Active Blade atrial atrial 05-18 Michael fibrillatio fibrillatio [id number] n n 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 05-18 Michael mellitus mellitus [id number] without without complicatio complicatio ns ns Diverticuli Diverticuli Diagnosis Active Blade tis of tis of 05-18 [place] intestine, intestine, [id number] part part unspecified unspecified , without , without perforation perforation or abscess or abscess without without bleeding bleeding Anemia, Anemia, Diagnosis Active Blade unspecified unspecified 05-18 Michael [id number] Benign Benign Diagnosis Active Blade prostatic prostatic Michael hyperplasia hyperplasia [id number] without without lower lower urinary urinary tract tract symptoms symptoms Lymphocytop Lymphocytop Diagnosis Active Blade enia enia Michael [id number] Encounter Encounter Diagnosis Active Blade for mary ellen Rodriguez attention attention [id number] to to colostomy colostomy 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 (current) (current) Michael use of use of [id number] anticoagula anticoagula nts nts Personal Personal Diagnosis Active Blade history of history of Michael transient transient [id number] ischemic ischemic attack attack (TIA), and (TIA), and cerebral cerebral infarction infarction without without residual residual deficits deficits Presence of Presence of Diagnosis Active Blade cardiac cardiac Michael pacemaker pacemaker [id number] Presence of Presence of Diagnosis Active Blade 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 [id number] Personal Personal Diagnosis Active Blade history of history of Michael nicotine nicotine [id number] dependence dependence Problems Problems Diagnosis Active Blade related to related to Michael living living [id number] alone alone Pain frequent Pain Mgmt Resolve 2018-052019-04-20 Lolis pain d 05-21 10:55:00 [place] 10:30: [id number] 00 Cardio edema Cardiovasc Active 2018-05 [place] ular 05-21 [place] 10:30: [id number] 00 Cardio knowledge/s Cardiovasc Active 2018-05 [place]olis kill ular 05-21 [place] deficit: pt 10:30: [id number] 00 Respiratory dyspnea Respirator Resolve 2018-052019-05-17 Lolis present y d 05-21 10:45:00 [place] 10:30: [id number] 00 Endo/Justice newly Endo/Justice Resolve 2018-052019-04-08 Lolis diagnosed d 05-21 09:45:00 [place] diabetes 10:30: [id number] 00 Endo/Justice diabetic Endo/Justice Resolve 2018-052019-04-08 Lolis foot care d 05-21 09:45:00 [place] 10:30: [id number] 00 Endo/Justice anti-coagul Endo/Justice Resolve 2018-052019-04-08 Lolis ation d 05-21 09:45:00 [place] therapy 10:30: [id number] 00 Sensory impaired Sensory Resolve 2018-052019-04-27 Lolis hearing d 05-21 10:45:00 [place] 10:30: [id number] 00 Integument skin Integument Resolve 2018-052019-03-30 Lolis integrity d 05-21 11:40:00 [place] risk 10:30: [id number] 00 Nutrition nutritional Nutrition Resolve 2018-052019-03-30 Lolis restriction d 05-21 11:40:00 [place] s 10:30: [id number] 00 Elimination ostomy Eliminatio Resolve 2018-052019-03-30 Lolis present n d 05-21 11:40:00 [place] 10:30: [id number] 00 Neuro confusion Neuro/Emot Resolve 2018-052019-05-17 Lolis present ion d 05-21 10:45:00 [place] 10:30: [id number] 00 Neuro impaired Neuro/Emot Resolve 2018-052019-05-17 Lolis decision-ma ion d 05-21 10:45:00 [place] nir 10:30: [id number] 00 Activity ADL Activity Resolve 2018-052019-05-17 Lolis assistance d 05-21 10:45:00 [place] required 10:30: [id number] 00 Activity self-care Activity Resolve 2018-052019-04-27 Lolis deficit d 05-21 10:45:00 [place] 10:30: [id number] 00 Safety structural Safety Resolve 2018-052019-05-05 Lolis barriers d 05-21 10:55:00 Foreign present 10:30: [id number] 00 Safety fall risk Safety Resolve 2018-052019-05-05 Lolis factor d 05-21 10:55:00 [place] present 10:30: [id number] 00 Safety risk for Safety Resolve 2018-052019-05-05 Lolis hospitaliza d 05-21 10:55:00 [place] tion 10:30: [id number] 00 Safety can be left Safety Active 2018-05 [place]olis alone for 05-21 [place] only short 10:30: [id number] periods 00 Safety safety Safety Resolve 2018-052019-05-05 QUALITY hazards d 05-21 10:55:00 REALTIME present 10:30: 00 Medication oral med Meds Resolve 2018-052019-04-20 [place] assistance d 05-21 10:55:00 [place] required 10:30: [id number] 00 Medication knowledge/s Meds Resolve 2018-052019-04-20 [place] kill d 05-21 10:55:00 [place] deficit: pt 10:30: [id number] 00 Musculoskel transfer Musculoske Resolve 2018-052019-04-27 [place]olis etal assistance letal d 05-21 10:45:00 [place] required 10:30: [id number] 00 Musculoskel requires Musculoske Resolve 2018-052019-04-27 [place]olis etal human letal d 05-21 10:45:00 [place] assist to 10:30: [id number] leave home 00 Cath/Ostomy k/s Cath\Ostom Resolve 2018-052019-03-30 [place] /GI deficit: y\GI Care d 05-21 11:40:00 [place] cath/ost/GI 10:30: [id number] care - pt 00 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 PT/OT: Resolve 2018-052019-05-17 Jaquan urance rdination Balance/En d 05-21 10:45:00 [place] deficit durance 12:07: [id number] 00 OT: Self self-care OT: Resolve 2018-052019-05-17 Jaquan Care deficit Self-Care d 05-21 10:45:00 [place] 12:07: [id number] 00 Gait/Locomo stair PT/OT: Resolve 2018-052019-05-17 Jaquan tion management Gait/Locom d 05-21 10:45:00 [place] problems req otion 12:07: [id number] 00 Gait/[place]ocom[place] gait PT/OT: Resolve 2018-052019-05-17 Jaquan tion deficit Gait/Locom d 05-21 10:45:00 [place] problems otion 12:07: [id number] 00 Elimination ostomy Eliminatio Resolve 2018-052019-04-20 Blade present n d 06-01 10:55:00 Michael 09:55: [id number] 00 Elimination urinary Eliminatio Resolve 2018-052019-05-17 Blade incontinenc n d 2- 10:45:00 Michael coronel 10:45: [id number] 00 Elimination ostomy Eliminatio Resolve 2018-052019-05-17 Blade present n d 2-11 10:45:00 Michael 10:45: [id number] 00 Safety risk for Safety Active 2018-05 Blade hospitaliza 07-11 Michael tion 10:50: [id number] 00 Activity ADL Activity Unknown 2018-05 Blade assistance Rodriguez required 10:45: [id number] 00 Safety fall risk Safety Active 2018-05 Blade factor Rodriguez present 10:45: [id number] 00 Sensory impaired Sensory Active 2019- Cherrise hearing 06-07 [place] 11:30: [id number] 00 Elimination urinary Eliminatio Active 2019-0 Cherrise incontinenc n 06-07 [place] e 11:30: [id number] 00 Elimination urinary Eliminatio Active Cherrise urgency n 06-07 [place] 11:30: [id number] 00 Elimination ostomy Eliminatio Active 2019-0 Cherrise present n 06-07 [place] 11:30: [id number] 00 Neuro impaired Neuro/Emot Active Cherrise decision-ma ion 06-07 [place] nir 11:30: [id number] 00 Safety structural Safety Active Cherrise barriers 06-07 [place] present 11:30: [id number] 00 Safety sanitation Safety Active Cherrise hazards 06-07 [place] present 11:30: [id number] 00 Musculoskel requires Musculoske Active Cherrise etal human letal 06-07 [place] assist to 11:30: [id number] leave home 00 Allergies, Adverse Reactions, Alerts Allergy Allergy Status Severity Reaction(s) Onset Inactive Treating Comments Name Type Date Date Clinician Unknown None Active Unknown None Unknown No Known Allergies For This Patient Medications Ordered Filled Start Stop Current Ordering Indication Dosage Frequency Signature Comments Components Medication Medication Date Date Medication? Clinician (SIG) Name Name Eliquis 2.5 Eliquis 2.5 2018-05 Yes [place] Unknown Unknown mg tablet mg tablet 1-04 Fatimah STRONG metoprolol metoprolol 2018-05 Yes [place] Unknown Unknown tartrate tartrate 1-04 Fatimah STRONG 100 mg 100 mg tablet tablet Cardizem CD Cardizem CD 2018-05 Yes [place] Unknown Unknown 120 mg 120 mg 1-04 Fatimah STRONG capsule,ext capsule,ext ended ended release release multivitami multivitami 2018-05 Yes [place] Unknown Unknown n with n with - Fatimah STRONG minerals minerals tablet tablet Co Q-10 150 Co Q-10 150 2018-05 Yes [place] Unknown Unknown mg capsule mg capsule 1-04 Fatimah STRNOG niacin ER niacin ER 2018-05 Yes [place] Unknown Unknown 250 mg 250 mg 1-04 Fatimah STRONG tablet,exte tablet,exte nded nded release release iron 27mg iron 27mg 2018-05 Yes [place] Unknown Unknown 1-04 Fatimah STRONG pravastatin pravastatin 2018-05 Yes [place] Unknown Unknown 40 mg 40 mg -15 [...]
--- OUTSIDE RECORDS SUMMARY | 2019-07-05 16:33 | XMS REPORT ---
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 Chronic Chronic Diagnosis Active Blade systolic systolic 05-18 Michael (congestive (congestive [id number] ) heart ) heart failure failure Paroxysmal Paroxysmal Diagnosis Active Blade atrial atrial 05-18 Michael fibrillatio fibrillatio [id number] n n 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 05-18 Michael mellitus mellitus [id number] without without complicatio complicatio ns ns Diverticuli Diverticuli Diagnosis Active Blade tis of tis of 05-18 Michael intestine, intestine, [id number] part part unspecified unspecified , without , without perforation perforation or abscess or abscess without without bleeding bleeding Anemia, Anemia, Diagnosis Active Blade unspecified unspecified 05-18 Michael [id number] Benign Benign Diagnosis Active Blade prostatic prostatic Michael hyperplasia hyperplasia [id number] without without lower lower urinary urinary tract tract symptoms symptoms Lymphocytop Lymphocytop Diagnosis Active Blade enia enia Michael [id number] Encounter Encounter Diagnosis Active Blade for mary ellen Rodriguez attention attention [id number] to to colostomy 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 (current) (current) Michael use of use of [id number] anticoagula anticoagula nts nts Personal Personal Diagnosis Active Blade history of history of Michael 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 (TIA), and (TIA), and cerebral cerebral infarction infarction without without residual residual deficits deficits Presence of Presence of Diagnosis Active Blade cardiac cardiac Michael pacemaker pacemaker [id number] Presence of Presence of Diagnosis Active Blade 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 [id number] Personal Personal Diagnosis Active Blade history of history of Michael nicotine nicotine [id number] dependence dependence Problems Problems Diagnosis Active Blade related to related to Michael living living [id number] alone alone Pain frequent Pain Mgmt Resolve 2018-052019-04-20 [place] pain d 05-21 10:55:00 [place] 10:30: [id number] 00 Cardio edema Cardiovasc Active 2018-05 [place] ular 05-21 [place] 10:30: [id number] 00 Cardio knowledge/s Cardiovasc Active 2018-05 [place] kill ular 05-21 [place] deficit: pt 10:30: [id number] 00 Respiratory dyspnea Respirator Resolve 2018-052019-05-17 [place] present y d 05-21 10:45:00 [place] 10:30: [id number] 00 Endo/Justice newly Endo/Justice Resolve 2018-052019-04-08 [place] diagnosed d 05-21 09:45:00 [place] diabetes 10:30: [id number] 00 Endo/Justice diabetic Endo/Justice Resolve 2018-052019-04-08 [place] foot care d 05-21 09:45:00 [place] 10:30: [id number] 00 Endo/Justice anti-coagul Endo/Justice Resolve 2018-052019-04-08 [place] ation d 05-21 09:45:00 [place] therapy 10:30: [id number] 00 Sensory impaired Sensory Resolve 2018-052019-04-27 [place] hearing d 05-21 10:45:00 [place] 10:30: [id number] 00 Integument skin Integument Resolve 2018-052019-03-30 [place] integrity d 05-21 11:40:00 [place] risk 10:30: [id number] 00 Nutrition nutritional Nutrition Resolve 2018-052019-03-30 [place] restriction d 05-21 11:40:00 [place] s 10:30: [id number] 00 Elimination ostomy Eliminatio Resolve 2018-052019-03-30 [place] present n d 05-21 11:40:00 [place] 10:30: [id number] 00 Neuro confusion Neuro/Emot Resolve 2018-052019-05-17 [place] present ion d 05-21 10:45:00 [place] 10:30: [id number] 00 Neuro impaired Neuro/Emot Resolve 2018-052019-05-17 [place] decision-ma ion d 05-21 10:45:00 [place] nir 10:30: [id number] 00 Activity ADL Activity Resolve 2018-052019-05-17 [place] assistance d 05-21 10:45:00 [place] required 10:30: [id number] 00 Activity self-care Activity Resolve 2018-052019-04-27 [place] deficit d 05-21 10:45:00 [place] 10:30: [id number] 00 Safety structural Safety Resolve 2018-052019-05-05 [place] barriers d 05-21 10:55:00 [place] present 10:30: [id number] 00 Safety fall risk Safety Resolve 2018-052019-05-05 [place] factor d 05-21 10:55:00 [place] present 10:30: [id number] 00 Safety risk for Safety Resolve 2018-052019-05-05 [place] hospitaliza d 05-21 10:55:00 [place] tion 10:30: [id number] 00 Safety can be left Safety Active 2018-05 [place] alone for 05-21 [place] only short 10:30: [id number] 00 Safety safety Safety Resolve 2018-052019-05-05 QUALITY hazards d 05-21 10:55:00 [place] present 10:30: 00 Medication oral med Meds Resolve 2018-052019-04-20 [place] assistance d 05-21 10:55:00 [place] required 10:30: [id number] 00 Medication knowledge/s Meds Resolve 2018-052019-04-20 [place] kill d 05-21 10:55:00 [place] deficit: pt 10:30: [id number] 00 Musculoskel transfer Musculoske Resolve 2018-052019-04-27 [place] etal assistance letal d 05-21 10:45:00 [place] required 10:30: [id number] 00 Musculoskel requires Musculoske Resolve 2018-052019-04-27 [place] etal human letal d 05-21 10:45:00 [place] assist to 10:30: [id number] leave home 00 Cath/Ostomy k/s Cath\Ostom Resolve 2018-052019-03-30 [place] /GI deficit: y\GI Care d 05-21 11:40:00 [place] cath/ost/GI 10:30: [id number] care - pt 00 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 PT/OT: Resolve 2018-052019-05-17 [place] urance rdination Balance/En d 05-21 10:45:00 [place] deficit durance 12:07: [id number] 00 OT: Self self-care OT: Resolve 2018-052019-05-17 Jaquan Care deficit Self-Care d 05-21 10:45:00 [place] 12:07: [id number] 00 Gait/[place]ocomo stair PT/OT: Resolve 2018-052019-05-17 Jaquan tion management Gait/Locom d 05-21 10:45:00 [place] problems req otion 12:07: [id number] 00 Gait/[place] gait PT/OT: Resolve 2018-052019-05-17 Jaquan tion deficit Gait/Locom d 05-21 10:45:00 [place] problems otion 12:07: [id number] 00 Elimination ostomy Eliminatio Resolve 2018-052019-04-20 [place] present n d 06-01 10:55:00 Michael 09:55: [id number] 00 Elimination urinary Eliminatio Resolve 2018-052019-05-17 [place]ade incontinenc n d 2- 10:45:00 Michael coronel 10:45: [id number] 00 Elimination ostomy Eliminatio Resolve 2018-052019-05-17 [place] present n d 2-11 10:45:00 Michael 10:45: [id number] 00 Safety risk for Safety Active 2018-05 [facility] hospitaliza 07-11 Michael tion 10:50: [id number] 00 Activity ADL Activity Unknown 2018-05 [place] assistance Rodriguez required 10:45: [id number] 00 Safety fall risk Safety Active 2018-05 [facility] factor Rodriguez present 10:45: [id number] 00 Sensory impaired Sensory Active 2019- [place] hearing 06-07 [place] 11:30: [id number] 00 Elimination urinary Eliminatio Active 2019-0 [place] incontinenc n 06-07 [place] e 11:30: [id number] 00 Elimination urinary Eliminatio Active [place] urgency n 06-07 [place] 11:30: [id number] 00 Elimination ostomy Eliminatio Active 2019-0 [place] present n 06-07 [place] 11:30: [id number] 00 Neuro impaired Neuro/Emot Active [place] decision-ma ion 06-07 [place] nir 11:30: [id number] 00 Safety structural Safety Active [place] barriers 06-07 [place] present 11:30: [id number] 00 Safety sanitation Safety Active [place] hazards 06-07 [place] present 11:30: [id number] 00 Musculoskel requires Musculoske Active [place] etal human letal 06-07 [place] assist to 11:30: [id number] leave home 00 Allergies, Adverse Reactions, Alerts Allergy Allergy Status Severity Reaction(s) Onset Inactive Treating Comments Name Type Date Date Clinician Unknown None Active Unknown None Unknown No Known Allergies For This Patient Medications Ordered Filled Start Stop Current Ordering Indication Dosage Frequency Signature Comments Components Medication Medication Date Date Medication? Clinician (SIG) Name Name Eliquis 2.5 Eliquis 2.5 2018-05 Yes [place] Unknown Unknown mg tablet mg tablet 1-04 Fatimah STRONG metoprolol metoprolol 2018-05 Yes [place] Unknown Unknown tartrate tartrate 1-04 Fatimah STRONG 100 mg 100 mg tablet tablet Cardizem CD Cardizem CD 2018-05 Yes [place] Unknown Unknown 120 mg 120 mg 1-04 Fatimah STRONG capsule,ext capsule,ext ended ended release release multivitami multivitami 2018-05 Yes [place] Unknown Unknown n with n with - Fatimah STRONG minerals minerals tablet tablet Co Q-10 150 Co Q-10 150 2018-05 Yes [place] Unknown Unknown mg capsule mg capsule 1-04 Fatimah STRONG niacin ER niacin ER 2018-05 Yes [place] Unknown Unknown 250 mg 250 mg 1-04 Fatimah STRONG tablet,exte tablet,exte nded nded release release iron 27mg iron 27mg 2018-05 Yes [place] Unknown Unknown 1-04 Fatimah STRONG pravastatin pravastatin 2018-05 Yes [place] Unknown Unknown 40 mg 40 mg -15 [...]
--- OUTSIDE RECORDS SUMMARY | 2019-07-05 16:33 | XMS REPORT ---
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 05-18 Michael (congestive (congestive [id number] ) heart ) heart failure failure Paroxysmal Paroxysmal Diagnosis Active Blade atrial atrial 05-18 Michael fibrillatio fibrillatio [id number] n n 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 05-18 Michael mellitus mellitus [id number] without without complicatio complicatio ns ns Diverticuli Diverticuli Diagnosis Active Blade tis of tis of 05-18 Michael intestine, intestine, [id number] part part unspecified unspecified , without , without perforation perforation or abscess or abscess without without bleeding bleeding Anemia, Anemia, Diagnosis Active Blade unspecified unspecified 05-18 Michael [id number] Benign Benign Diagnosis Active Blade prostatic prostatic Michael hyperplasia hyperplasia [id number] without without lower lower urinary urinary tract tract symptoms symptoms Lymphocytop Lymphocytop Diagnosis Active Blade enia enia Michael [id number] Encounter Encounter Diagnosis Active Blade for mary ellen Rodriguez attention attention [id number] to to colostomy colostomy rn long term care rn long term care Diagnosis Active Blade (current) (current) Michael use of use of [id number] anticoagula anticoagula nts nts Personal Personal Diagnosis Active Blade history of history of Michael transient transient [id number] ischemic ischemic attack attack (TIA), and (TIA), and cerebral cerebral infarction infarction without without residual residual deficits deficits Presence of Presence of Diagnosis Active Blade cardiac cardiac Michael pacemaker pacemaker [id number] Presence of Presence of Diagnosis Active Blade 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 [id number] Personal Personal Diagnosis Active Blade history of history of Michael nicotine nicotine [id number] dependence dependence Problems Problems Diagnosis Active Blade related to related to Michael living living [id number] alone alone Pain frequent Pain Mgmt Resolve 2018-052019-04-20 [place] pain d 05-21 10:55:00 [place] 10:30: [id number] 00 Cardio edema Cardiovasc Active 2018-05 [place] ular 05-21 [place] 10:30: [id number] 00 Cardio knowledge/s Cardiovasc Active 2018-05 [place] kill ular 05-21 [place] deficit: pt 10:30: [id number] 00 Respiratory dyspnea Respirator Resolve 2018-052019-05-17 [place] present y d 05-21 10:45:00 [place] 10:30: [id number] 00 Endo/Justice newly Endo/Justice Resolve 2018-052019-04-08 [place] diagnosed d 05-21 09:45:00 [place] diabetes 10:30: [id number] 00 Endo/Justice diabetic Endo/Justice Resolve 2018-052019-04-08 [place] foot care d 05-21 09:45:00 [place] 10:30: [id number] 00 Endo/Justice anti-coagul Endo/Justice Resolve 2018-052019-04-08 [place] ation d 05-21 09:45:00 [place] therapy 10:30: [id number] 00 Sensory impaired Sensory Resolve 2018-052019-04-27 [place] hearing d 05-21 10:45:00 [place] 10:30: [id number] 00 Integument skin Integument Resolve 2018-052019-03-30 [place] integrity d 05-21 11:40:00 [place] risk 10:30: [id number] 00 Nutrition nutritional Nutrition Resolve 2018-052019-03-30 [place] restriction d 05-21 11:40:00 [place] s 10:30: [id number] 00 Elimination ostomy Eliminatio Resolve 2018-052019-03-30 [place] present n d 05-21 11:40:00 [place] 10:30: [id number] 00 Neuro confusion Neuro/Emot Resolve 2018-052019-05-17 [place] present ion d 05-21 10:45:00 [place] 10:30: [id number] 00 Neuro impaired Neuro/Emot Resolve 2018-052019-05-17 [place] decision-ma ion d 05-21 10:45:00 [place] nir 10:30: [id number] 00 Activity ADL Activity Resolve 2018-052019-05-17 [place] assistance d 05-21 10:45:00 [place] required 10:30: [id number] 00 Activity self-care Activity Resolve 2018-052019-04-27 [place] deficit d 05-21 10:45:00 [place] 10:30: [id number] 00 Safety structural Safety Resolve 2018-052019-05-05 [place] barriers d 05-21 10:55:00 [place] present 10:30: [id number] 00 Safety fall risk Safety Resolve 2018-052019-05-05 [place] factor d 05-21 10:55:00 [place] present 10:30: [id number] 00 Safety risk for Safety Resolve 2018-052019-05-05 [place] hospitaliza d 05-21 10:55:00 [place] tion 10:30: [id number] 00 Safety can be left Safety Active 2018-05 [place] alone for 05-21 [place] only short 10:30: [id number] periods 00 Safety safety Safety Resolve 2018-052019-05-05 QUALITY hazards d 05-21 10:55:00 [place] present 10:30: 00 Medication oral med Meds Resolve 2018-052019-04-20 [place] assistance d 05-21 10:55:00 [place] required 10:30: [id number] 00 Medication knowledge/s Meds Resolve 2018-052019-04-20 [place] kill d 05-21 10:55:00 [place] deficit: pt 10:30: [id number] 00 Musculoskel transfer Musculoske Resolve 2018-052019-04-27 [place] etal assistance letal d 05-21 10:45:00 [place] required 10:30: [id number] 00 Musculoskel requires Musculoske Resolve 2018-052019-04-27 [place] etal human letal d 05-21 10:45:00 [place] assist to 10:30: [id number] leave home 00 Cath/Ostomy k/s Cath\Ostom Resolve 2018-052019-03-30 [place] /GI deficit: y\GI Care d 05-21 11:40:00 [place] cath/ost/GI 10:30: [id number] care - pt 00 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 PT/OT: Resolve 2018-052019-05-17 Jaquan urance rdination Balance/En d 05-21 10:45:00 [place] deficit durance 12:07: [id number] 00 OT: Self self-care OT: Resolve 2018-052019-05-17 Jaquan Care deficit Self-Care d 05-21 10:45:00 [place] 12:07: [id number] 00 Gait/[place] stair PT/OT: Resolve 2018-052019-05-17 Jaquan tion management Gait/Locom d 05-21 10:45:00 [place] problems req otion 12:07: [id number] 00 Gait/[place] gait PT/OT: Resolve 2018-052019-05-17 Jaquan tion deficit Gait/Locom d 05-21 10:45:00 [place] problems otion 12:07: [id number] 00 Elimination ostomy Eliminatio Resolve 2018-052019-04-20 [place] present n d 06-01 10:55:00 Michael 09:55: [id number] 00 Elimination urinary Eliminatio Resolve 2018-052019-05-17 [place] incontinenc n d 2- 10:45:00 Michael coronel 10:45: [id number] 00 Elimination ostomy Eliminatio Resolve 2018-052019-05-17 [place] present n d 2-11 10:45:00 Michael 10:45: [id number] 00 Safety risk for Safety Active 2018-05 [facility] hospitaliza 07-11 Michael tion 10:50: [id number] 00 Activity ADL Activity Unknown 2018-05 [place] assistance [place] required 10:45: [id number] 00 Safety fall risk Safety Active 2018-05 [place]ade factor Rodriguez present 10:45: [id number] 00 Sensory impaired Sensory Active 2019- [place] hearing 06-07 [place] 11:30: [id number] 00 Elimination urinary Eliminatio Active 2019-0 [place] incontinenc n 06-07 [place] e 11:30: [id number] 00 Elimination urinary Eliminatio Active [place] urgency n 06-07 [place] 11:30: [id number] 00 Elimination ostomy Eliminatio Active 2019-0 [place] present n 06-07 [place] 11:30: [id number] 00 Neuro impaired Neuro/Emot Active [place] decision-ma ion 06-07 [place] nir 11:30: [id number] 00 Safety structural Safety Active [place] barriers 06-07 [place] present 11:30: [id number] 00 Safety sanitation Safety Active [place] hazards 06-07 [place] present 11:30: [id number] 00 Musculoskel requires Musculoske Active [place] etal human letal 06-07 [place] assist to 11:30: [id number] leave home 00 Allergies, Adverse Reactions, Alerts Allergy Allergy Status Severity Reaction(s) Onset Inactive Treating Comments Name Type Date Date Clinician Unknown None Active Unknown None Unknown No Known Allergies For This Patient Medications Ordered Filled Start Stop Current Ordering Indication Dosage Frequency Signature Comments Components Medication Medication Date Date Medication? Clinician (SIG) Name Name Eliquis 2.5 Eliquis 2.5 2018-05 Yes [place] Unknown Unknown mg tablet mg tablet -04 Fatimah STRONG metoprolol metoprolol 2018-05 Yes [place] Unknown Unknown tartrate tartrate -04 Fatimah STRONG 100 mg 100 mg tablet tablet Cardizem CD Cardizem CD 2018-05 Yes [place] Unknown Unknown 120 mg 120 mg 1-04 Fatimah STRONG capsule,ext capsule,ext ended ended release release multivitami multivitami 2018-05 Yes [place] Unknown Unknown n with n with - Fatimah STRONG minerals minerals tablet tablet Co Q-10 150 Co Q-10 150 2018-05 Yes [place] Unknown Unknown mg capsule mg capsule 1-04 Fatimah STRONG niacin ER niacin ER 2018-05 Yes [place] Unknown Unknown 250 mg 250 mg 1-04 Fatimah STRONG tablet,exte tablet,exte nded nded release release iron 27mg iron 27mg 2018-05 Yes [place] Unknown Unknown 1-04 Fatimah STRONG pravastatin pravastatin 2018-05 Yes [place] Unknown Unknown 40 mg 40 mg - [...]
--- OUTSIDE RECORDS SUMMARY | 2019-07-05 16:33 | XMS REPORT ---
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 Chronic Chronic Diagnosis Active Blade systolic systolic 05-18 Michael (congestive (congestive [id number] ) heart ) heart failure failure Paroxysmal Paroxysmal Diagnosis Active Blade atrial atrial 05-18 Michael fibrillatio fibrillatio [id number] n n 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 05-18 Michael mellitus mellitus [id number] without without complicatio complicatio ns ns Diverticuli Diverticuli Diagnosis Active Blade tis of tis of 05-18 Michael intestine, intestine, [id number] part part unspecified unspecified , without , without perforation perforation or abscess or abscess without without bleeding bleeding Anemia, Anemia, Diagnosis Active Blade unspecified unspecified 05-18 Michael [id number] Benign Benign Diagnosis Active Blade prostatic prostatic Michael hyperplasia hyperplasia [id number] without without lower lower urinary urinary tract tract symptoms symptoms Lymphocytop Lymphocytop Diagnosis Active Blade enia enia Michael [id number] Encounter Encounter Diagnosis Active Blade for mary ellen Rodriguez attention attention [id number] to to colostomy colostomy 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 (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) (current) Michael use of use of [id number] anticoagula anticoagula nts nts Personal Personal Diagnosis Active Blade history of history of Michael transient transient [id number] ischemic ischemic attack attack (TIA), and (TIA), and cerebral cerebral infarction infarction without without residual residual deficits deficits Presence of Presence of Diagnosis Active Blade cardiac cardiac Michael pacemaker pacemaker [id number] Presence of Presence of Diagnosis Active Blade 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 [id number] Personal Personal Diagnosis Active Blade history of history of Michael nicotine nicotine [id number] dependence dependence Problems Problems Diagnosis Active Blade related to related to Michael living living [id number] alone alone Pain frequent Pain Mgmt Resolve 2018-052019-04-20 [place] pain d 05-21 10:55:00 [place] 10:30: [id number] 00 Cardio edema Cardiovasc Active 2018-05 [place] ular 05-21 [place] 10:30: [id number] 00 Cardio knowledge/s Cardiovasc Active 2018-05 [place] kill ular 05-21 [place] deficit: pt 10:30: [id number] 00 Respiratory dyspnea Respirator Resolve 2018-052019-05-17 [place] present y d 05-21 10:45:00 [place] 10:30: [id number] 00 Endo/Justice newly Endo/Justice Resolve 2018-052019-04-08 [place] diagnosed d 05-21 09:45:00 [place] diabetes 10:30: [id number] 00 Endo/Justice diabetic Endo/Justice Resolve 2018-052019-04-08 [place] foot care d 05-21 09:45:00 [place] 10:30: [id number] 00 Endo/Justice anti-coagul Endo/Justice Resolve 2018-052019-04-08 [place] ation d 05-21 09:45:00 [place] therapy 10:30: [id number] 00 Sensory impaired Sensory Resolve 2018-052019-04-27 [place] hearing d 05-21 10:45:00 [place] 10:30: [id number] 00 Integument skin Integument Resolve 2018-052019-03-30 [place] integrity d 05-21 11:40:00 [place] risk 10:30: [id number] 00 Nutrition nutritional Nutrition Resolve 2018-052019-03-30 [place] restriction d 05-21 11:40:00 [place] s 10:30: [id number] 00 Elimination ostomy Eliminatio Resolve 2018-052019-03-30 [place] present n d 05-21 11:40:00 [place] 10:30: [id number] 00 Neuro confusion Neuro/Emot Resolve 2018-052019-05-17 [place] present ion d 05-21 10:45:00 [place] 10:30: [id number] 00 Neuro impaired Neuro/Emot Resolve 2018-052019-05-17 [place] decision-ma ion d 05-21 10:45:00 [place] nir 10:30: [id number] 00 Activity ADL Activity Resolve 2018-052019-05-17 [place] assistance d 05-21 10:45:00 [place] required 10:30: [id number] 00 Activity self-care Activity Resolve 2018-052019-04-27 [place] deficit d 05-21 10:45:00 [place] 10:30: [id number] 00 Safety structural Safety Resolve 2018-052019-05-05 [place] barriers d 05-21 10:55:00 [place] present 10:30: [id number] 00 Safety fall risk Safety Resolve 2018-052019-05-05 [place] factor d 05-21 10:55:00 [place] present 10:30: [id number] 00 Safety risk for Safety Resolve 2018-052019-05-05 [place] hospitaliza d 05-21 10:55:00 [place] tion 10:30: [id number] 00 Safety can be left Safety Active 2018-05 [place] alone for 05-21 [place] only short 10:30: [id number] 00 Safety safety Safety Resolve 2018-052019-05-05 QUALITY hazards d 05-21 10:55:00 [place] present 10:30: 00 Medication oral med Meds Resolve 2018-052019-04-20 [place] assistance d 05-21 10:55:00 [place] required 10:30: [id number] 00 Medication knowledge/s Meds Resolve 2018-052019-04-20 [place] kill d 05-21 10:55:00 [place] deficit: pt 10:30: [id number] 00 Musculoskel transfer Musculoske Resolve 2018-052019-04-27 [place] etal assistance letal d 05-21 10:45:00 [place] required 10:30: [id number] 00 Musculoskel requires Musculoske Resolve 2018-052019-04-27 [place] etal human letal d 05-21 10:45:00 [place] assist to 10:30: [id number] leave home 00 Cath/Ostomy k/s Cath\Ostom Resolve 2018-052019-03-30 [place] /GI deficit: y\GI Care d 05-21 11:40:00 [place] cath/ost/GI 10:30: [id number] care - pt 00 Balance/End balance/pharmacy coordinator PT/OT: Resolve 2018-052019-05-17 Jaquan urance rdination Balance/En d 05-21 10:45:00 [place] deficit durance 12:07: [id number] 00 OT: Self self-care OT: Resolve 2018-052019-05-17 Jaquan Care deficit Self-Care d 05-21 10:45:00 [place] 12:07: [id number] 00 Gait/Locomo stair PT/OT: Resolve 2018-052019-05-17 Jaquan tion management Gait/Locom d 05-21 10:45:00 [place] problems req otion 12:07: [id number] 00 Gait/[place] gait PT/OT: Resolve 2018-052019-05-17 Jaquan tion deficit Gait/Locom d 05-21 10:45:00 [place] problems otion 12:07: [id number] 00 Elimination ostomy Eliminatio Resolve 2018-052019-04-20 [place]ade present n d 06-01 10:55:00 Michael 09:55: [id number] 00 Elimination urinary Eliminatio Resolve 2018-052019-05-17 [place]ade incontinenc n d 06-28 10:45:00 Michael coronel 10:45: [id number] 00 Elimination ostomy Eliminatio Resolve 2018-052019-05-17 [place] present n d - 10:45:00 Michael 10:45: [id number] 00 Safety risk for Safety Active 2018-05 Blade hospitaliza 07-11 [place] tion 10:50: [id number] 00 Activity ADL Activity Unknown 2018-05 Blade assistance Rodriguez required 10:45: [id number] 00 Safety fall risk Safety Active 2018-05 [place]ade factor Rodriguez present 10:45: [id number] 00 Sensory impaired Sensory Active [place] hearing 06-07 [place] 11:30: [id number] 00 Elimination urinary Eliminatio Resolve 2019-06-21 [place] incontinenc n d 06-07 10:55:00 [place] e 11:30: [id number] 00 Elimination urinary Eliminatio Resolve 2019-06-21 [place] urgency n d 06-07 10:55:00 [place] 11:30: [id number] 00 Elimination ostomy Eliminatio Active [place] present n 06-07 [place] 11:30: [id number] 00 Neuro impaired Neuro/Emot Active [place] decision-ma ion 06-07 [place] nir 11:30: [id number] 00 Safety structural Safety Active [place] barriers 06-07 [place] present 11:30: [id number] 00 Safety sanitation Safety Active [place] hazards 06-07 [place] present 11:30: [id number] 00 Musculoskel requires Musculoske Active [place] etal human letal 06-07 [place] assist to 11:30: [id number] leave home 00 Allergies, Adverse Reactions, Alerts Allergy Allergy Status Severity Reaction(s) Onset Inactive Treating Comments Name Type Date Date Clinician Unknown None Active Unknown None Unknown No Known Allergies For This Patient Medications Ordered Filled Start Stop Current Ordering Indication Dosage Frequency Signature Comments Components Medication Medication Date Date Medication? Clinician (SIG) Name Name Eliquis 2.5 Eliquis 2.5 2018-05 No [place] Unknown Unknown mg tablet mg tablet 05-21 Fatimah STRONG metoprolol metoprolol 2018-05 No Victor Manuel Unknown Unknown tartrate tartrate 05-21 Fatimah STRONG 100 mg 100 mg tablet tablet Cardizem CD Cardizem CD 2018-05 No [place] Unknown Unknown 120 mg 120 mg 05-21 Fatimah STRONG capsule,ext capsule,ext ended ended release release multivitami multivitami 2018-05 No [place] Unknown Unknown n with n with 05-21 Fatimah STRONG minerals minerals tablet tablet Co Q-10 150 Co Q-10 150 2018-05 No [place] Unknown Unknown mg capsule mg capsule 05-21 Fatimah STRONG niacin ER niacin ER 2018-05 No [place] Unknown Unknown 250 mg 250 mg - Fatimah STRONG tablet,exte tablet,exte nded nded release release iron 27mg iron 27mg 2018-05 No [place] Unknown Unknown - Fatimah STRONG pravastatin pravastatin [...]
--- OUTSIDE RECORDS SUMMARY | 2019-07-05 16:33 | XMS REPORT ---
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 05-18 Michael (congestive (congestive [id number] ) heart ) heart failure failure Paroxysmal Paroxysmal Diagnosis Active Blade atrial atrial 05-18 Michael fibrillatio fibrillatio [id number] n n 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 05-18 Michael mellitus mellitus [id number] without without complicatio complicatio ns ns Diverticuli Diverticuli Diagnosis Active Blade tis of tis of 05-18 Michael intestine, intestine, [id number] part part unspecified unspecified , without , without perforation perforation or abscess or abscess without without bleeding bleeding Anemia, Anemia, Diagnosis Active Blade unspecified unspecified 05-18 Michael [id number] Benign Benign Diagnosis Active Blade prostatic prostatic Michael hyperplasia hyperplasia [id number] without without lower lower urinary urinary tract tract symptoms symptoms Lymphocytop Lymphocytop Diagnosis Active Blade enia enia Michael [id number] Encounter Encounter Diagnosis Active Blade for mary ellen Rodriguez attention attention [id number] to to colostomy colostomy 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 Diagnosis Active Blade (current) (current) Michael use of use of [id number] anticoagula anticoagula nts nts Personal Personal Diagnosis Active Blade history of history of Michael transient transient [id number] ischemic ischemic attack attack (TIA), and (TIA), and cerebral cerebral infarction infarction without without residual residual deficits deficits Presence of Presence of Diagnosis Active Blade cardiac cardiac Michael pacemaker pacemaker [id number] Presence of Presence of Diagnosis Active Blade 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 [id number] Personal Personal Diagnosis Active Blade history of history of Michael nicotine nicotine [id number] dependence dependence Problems Problems Diagnosis Active Blade related to related to Michael living living [id number] alone alone Pain frequent Pain Mgmt Resolve 2018-052019-04-20 [place] pain d 05-21 10:55:00 [place] 10:30: [id number] 00 Cardio edema Cardiovasc Active 2018-05 [place] ular 05-21 [place] 10:30: [id number] 00 Cardio knowledge/s Cardiovasc Active 2018-05 [place] kill ular 05-21 [place] deficit: pt 10:30: [id number] 00 Respiratory dyspnea Respirator Resolve 2018-052019-05-17 [place] present y d 05-21 10:45:00 [place] 10:30: [id number] 00 Endo/Justice newly Endo/Justice Resolve 2018-052019-04-08 [place] diagnosed d 05-21 09:45:00 [place] diabetes 10:30: [id number] 00 Endo/Justice diabetic Endo/Justice Resolve 2018-052019-04-08 [place] foot care d 05-21 09:45:00 [place] 10:30: [id number] 00 Endo/Justice anti-coagul Endo/Justice Resolve 2018-052019-04-08 [place] ation d 05-21 09:45:00 [place] therapy 10:30: [id number] 00 Sensory impaired Sensory Resolve 2018-052019-04-27 [place] hearing d 05-21 10:45:00 [place] 10:30: [id number] 00 Integument skin Integument Resolve 2018-052019-03-30 [place] integrity d 05-21 11:40:00 [place] risk 10:30: [id number] 00 Nutrition nutritional Nutrition Resolve 2018-052019-03-30 [place] restriction d 05-21 11:40:00 [place] s 10:30: [id number] 00 Elimination ostomy Eliminatio Resolve 2018-052019-03-30 [place] present n d 05-21 11:40:00 [place] 10:30: [id number] 00 Neuro confusion Neuro/Emot Resolve 2018-052019-05-17 [place] present ion d 05-21 10:45:00 [place] 10:30: [id number] 00 Neuro impaired Neuro/Emot Resolve 2018-052019-05-17 [place] decision-ma ion d 05-21 10:45:00 [place] nir 10:30: [id number] 00 Activity ADL Activity Resolve 2018-052019-05-17 [place] assistance d 05-21 10:45:00 [place] required 10:30: [id number] 00 Activity self-care Activity Resolve 2018-052019-04-27 [place] deficit d 05-21 10:45:00 [place] 10:30: [id number] 00 Safety structural Safety Resolve 2018-052019-05-05 [place] barriers d 05-21 10:55:00 [place] present 10:30: [id number] 00 Safety fall risk Safety Resolve 2018-052019-05-05 [place] factor d 05-21 10:55:00 [place] present 10:30: [id number] 00 Safety risk for Safety Resolve 2018-052019-05-05 Lolis hospitaliza d 05-21 10:55:00 [place] tion 10:30: [id number] 00 Safety can be left Safety Active 2018-05 [place] alone for 05-21 [place] only short 10:30: [id number] periods 00 Safety safety Safety Resolve 2018-052019-05-05 QUALITY hazards d 05-21 10:55:00 [place] present 10:30: 00 Medication oral med Meds Resolve 2018-052019-04-20 [place] assistance d 05-21 10:55:00 [place] required 10:30: [id number] 00 Medication knowledge/s Meds Resolve 2018-052019-04-20 [place] kill d 05-21 10:55:00 [place] deficit: pt 10:30: [id number] 00 Musculoskel transfer Musculoske Resolve 2018-052019-04-27 [place] etal assistance letal d 05-21 10:45:00 [place] required 10:30: [id number] 00 Musculoskel requires Musculoske Resolve 2018-052019-04-27 [place] etal human letal d 05-21 10:45:00 [place] assist to 10:30: [id number] leave home 00 Cath/Ostomy k/s Cath\Ostom Resolve 2018-052019-03-30 [place] /GI deficit: y\GI Care d 05-21 11:40:00 [place] cath/ost/GI 10:30: [id number] care - pt 00 Balance/End balance/therapy coordinator PT/OT: Resolve 2018-052019-05-17 Jaquan onealance rdination Balance/En d 05-21 10:45:00 [place] deficit durance 12:07: [id number] 00 OT: Self self-care OT: Resolve 2018-052019-05-17 Jaquan Care deficit Self-Care d 05-21 10:45:00 [place] 12:07: [id number] 00 Gait/[place]ocom[place] stair PT/OT: Resolve 2018-052019-05-17 Jaquan tion management Gait/Locom d 05-21 10:45:00 [place] problems req otion 12:07: [id number] 00 Gait/[place] gait PT/OT: Resolve 2018-052019-05-17 Jaquan tion deficit Gait/Locom d 05-21 10:45:00 [place] problems otion 12:07: [id number] 00 Elimination ostomy Eliminatio Resolve 2018-052019-04-20 [place]ade present n d 1-15 10:55:00 Michael 09:55: [id number] 00 Elimination urinary Eliminatio Resolve 2018-052019-05-17 [place]ade incontinenc n d 2-11 10:45:00 Michael coronel 10:45: [id number] 00 Elimination ostomy Eliminatio Resolve 2018-052019-05-17 [place]ade present n d 2-11 10:45:00 Michael 10:45: [id number] 00 Safety risk for Safety Active 2018-05 Blade hospitaliza 07-11 Michael tion 10:50: [id number] 00 Activity ADL Activity Unknown 2018-05 Blade assistance Rodriguez required 10:45: [id number] 00 Safety fall risk Safety Active 2018-05 Blade factor Rodriguez present 10:45: [id number] 00 Allergies, Adverse Reactions, Alerts Allergy Allergy Status Severity Reaction(s) Onset Inactive Treating Comments Name Type Date Date Clinician Unknown None Active Unknown None Unknown No Known Allergies For This Patient Medications Ordered Filled Start Stop Current Ordering Indication Dosage Frequency Signature Comments Components Medication Medication Date Date Medication? Clinician (SIG) Name Name Eliquis 2.5 Eliquis 2.5 2018-05 Yes [place] Unknown Unknown mg tablet mg tablet 05-21 Fatimah STRONG metoprolol metoprolol 2018-05 Yes [place] Unknown Unknown tartrate tartrate 1-04 Fatimah STRONG 100 mg 100 mg tablet tablet Cardizem CD Cardizem CD 2018-05 Yes [place] Unknown Unknown 120 mg 120 mg 1-04 Fatimah STRONG capsule,ext capsule,ext ended ended release release multivitami multivitami 2018-05 Yes [place] Unknown Unknown n with n with - Fatimah STRONG minerals minerals tablet tablet Co Q-10 150 Co Q-10 150 2018-05 Yes [place] Unknown Unknown mg capsule mg capsule 1-04 Fatimah STRONG niacin ER niacin ER 2018-05 Yes [place] Unknown Unknown 250 mg 250 mg -04 Fatimah STRONG tablet,exte tablet,exte nded nded release release iron 27mg iron 27mg 2018-05 Yes [place] Unknown Unknown 1-04 Fatimah STRONG pravastatin pravastatin 2018-05 Yes [place] Unknown Unknown 40 mg 40 mg - Fatimah STRONG tablet tablet Vital Signs Vital Name Observation Time Observation Value Comments SYSTOLIC mm[Hg] 2019-05-31 18:09:52 146 mm[Hg] mm[Hg] Method: Sit SYSTOLIC mm[Hg] 2019-03-21 18:08:41 128 mm[Hg] mm[Hg] Method: Stand DIASTOLIC mm[Hg] 2019-05-31 18:09:52 72 mm[Hg] mm[Hg] Method: Sit DIASTOLIC mm[Hg] 2019-03-21 18:08:41 70 mm[Hg] mm[Hg] Method: Stand PULSE 2019-05-31 18:09:52 76 /min /min RESP RATE 2019-05-31 18:09:52 16 /min /min TEMP 2019-05-31 18:09:52 98.1 [degF] Procedures This patient has no known procedures. Results This patient has no known results.
--- OUTSIDE RECORDS SUMMARY | 2019-07-05 16:33 | XMS REPORT ---
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 Chronic Chronic Diagnosis Active Blade systolic systolic 05-18 Michael (congestive (congestive [id number] ) heart ) heart failure failure Paroxysmal Paroxysmal Diagnosis Active Blade atrial atrial 05-18 Michael fibrillatio fibrillatio [id number] n n 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 05-18 Michael mellitus mellitus [id number] without without complicatio complicatio ns ns Diverticuli Diverticuli Diagnosis Active Blade tis of tis of 05-18 Michael intestine, intestine, [id number] part part unspecified unspecified , without , without perforation perforation or abscess or abscess without without bleeding bleeding Anemia, Anemia, Diagnosis Active Blade unspecified unspecified 05-18 Michael [id number] Benign Benign Diagnosis Active Blade prostatic prostatic Michael hyperplasia hyperplasia [id number] without without lower lower urinary urinary tract tract symptoms symptoms Lymphocytop Lymphocytop Diagnosis Active Blade enia enia Michael [id number] Encounter Encounter Diagnosis Active Blade for mary ellen Rodriguez attention attention [id number] to to colostomy 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 (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) (current) Michael use of use of [id number] anticoagula anticoagula nts nts Personal Personal Diagnosis Active Blade history of history of Michael transient transient [id number] ischemic ischemic attack attack (TIA), and (TIA), and cerebral cerebral infarction infarction without without residual residual deficits deficits Presence of Presence of Diagnosis Active Blade cardiac cardiac Michael pacemaker pacemaker [id number] Presence of Presence of Diagnosis Active Blade 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 [id number] Personal Personal Diagnosis Active Blade history of history of Michael nicotine nicotine [id number] dependence dependence Problems Problems Diagnosis Active Blade related to related to Michael living living [id number] alone alone Pain frequent Pain Mgmt Resolve 2018-052019-04-20 Lolis pain d 05-21 10:55:00 [place] 10:30: [id number] 00 Cardio edema Cardiovasc Active 2018-05 Lolis ular 05-21 [place] 10:30: [id number] 00 Cardio knowledge/s Cardiovasc Active 2018-05 Lolis kill ular 05-21 [place] deficit: pt 10:30: [id number] 00 Respiratory dyspnea Respirator Resolve 2018-052019-05-17 Lolis present y d 05-21 10:45:00 [place] 10:30: [id number] 00 Endo/Justice newly Endo/Justice Resolve 2018-052019-04-08 Lolis diagnosed d 05-21 09:45:00 [place] diabetes 10:30: [id number] 00 Endo/Justice diabetic Endo/Justice Resolve 2018-052019-04-08 Lolis foot care d 05-21 09:45:00 [place] 10:30: [id number] 00 Endo/Justice anti-coagul Endo/Justice Resolve 2018-052019-04-08 Lolis ation d 05-21 09:45:00 [place] therapy 10:30: [id number] 00 Sensory impaired Sensory Resolve 2018-052019-04-27 Lolis hearing d 05-21 10:45:00 [place] 10:30: [id number] 00 Integument skin Integument Resolve 2018-052019-03-30 Lolis integrity d 05-21 11:40:00 [place] risk 10:30: [id number] 00 Nutrition nutritional Nutrition Resolve 2018-052019-03-30 Lolis restriction d 05-21 11:40:00 [place] s 10:30: [id number] 00 Elimination ostomy Eliminatio Resolve 2018-052019-03-30 Lolis present n d 05-21 11:40:00 [place] 10:30: [id number] 00 Neuro confusion Neuro/Emot Resolve 2018-052019-05-17 Lolis present ion d 05-21 10:45:00 [place] 10:30: [id number] 00 Neuro impaired Neuro/Emot Resolve 2018-052019-05-17 Lolis decision-ma ion d 05-21 10:45:00 [place] nir 10:30: [id number] 00 Activity ADL Activity Resolve 2018-052019-05-17 Lolis assistance d 05-21 10:45:00 [place] required 10:30: [id number] 00 Activity self-care Activity Resolve 2018-052019-04-27 Lolis deficit d 05-21 10:45:00 [place] 10:30: [id number] 00 Safety structural Safety Resolve 2018-052019-05-05 Lolis barriers d 05-21 10:55:00 Foreign present 10:30: [id number] 00 Safety fall risk Safety Resolve 2018-052019-05-05 Lolis factor d 05-21 10:55:00 [place] present 10:30: [id number] 00 Safety risk for Safety Resolve 2018-052019-05-05 Lolis hospitaliza d 05-21 10:55:00 [place] tion 10:30: [id number] 00 Safety can be left Safety Active 2018-05 Lolis alone for 05-21 [place] only short 10:30: [id number] 00 Safety safety Safety Resolve 2018-052019-05-05 QUALITY hazards d 05-21 10:55:00 REALTIME present 10:30: 00 Medication oral med Meds Resolve 2018-052019-04-20 Lolis assistance d 05-21 10:55:00 [place] required 10:30: [id number] 00 Medication knowledge/s Meds Resolve 2018-052019-04-20 Lolis kill d 05-21 10:55:00 [place] deficit: pt 10:30: [id number] 00 Musculoskel transfer Musculoske Resolve 2018-052019-04-27 Lolis etal assistance letal d 05-21 10:45:00 [place] required 10:30: [id number] 00 Musculoskel requires Musculoske Resolve 2018-052019-04-27 Lolis etal human letal d 05-21 10:45:00 Foreign assist to 10:30: [id number] leave home 00 Cath/Ostomy k/s Cath\Ostom Resolve 2018-052019-03-30 Lolis /GI deficit: y\GI Care d 05-21 11:40:00 [place] cath/ost/GI 10:30: [id number] care - pt 00 Balance/End 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/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 cook PT/OT: Resolve 2018-052019-05-17 Jaquan onealance rdination Balance/En d 05-21 10:45:00 Kobziewicz deficit durance 12:07: [id number] 00 OT: Self self-care OT: Resolve 2018-052019-05-17 Jaquan Care deficit Self-Care d 05-21 10:45:00 [place] 12:07: [id number] 00 Gait/Locomo stair PT/OT: Resolve 2018-052019-05-17 Jaquan tion management Gait/Locom d 05-21 10:45:00 Kobziewicz problems req otion 12:07: [id number] 00 Gait/Locomo gait PT/OT: Resolve 2018-052019-05-17 Jaquan tion deficit Gait/Locom d 05-21 10:45:00 Kobziewicz problems otion 12:07: [id number] 00 Elimination ostomy Eliminatio Resolve 2018-052019-04-20 Blade present n d 1-15 10:55:00 Michael 09:55: [id number] 00 Elimination urinary Eliminatio Resolve 2018-052019-05-17 Blade incontinenc n d 2-11 10:45:00 Michael coronel 10:45: [id number] 00 Elimination ostomy Eliminatio Resolve 2018-052019-05-17 Blade present n d 2-11 10:45:00 Michael 10:45: [id number] 00 Safety risk for Safety Active 2018-05 Blade hospitaliza 07-11 Michael tion 10:50: [id number] 00 Activity ADL Activity Unknown 2018-05 Blade assistance Rodriguez required 10:45: [id number] 00 Safety fall risk Safety Active 2018-05 Blade factor Rodriguez present 10:45: [id number] 00 Allergies, Adverse Reactions, Alerts Allergy Allergy Status Severity Reaction(s) Onset Inactive Treating Comments Name Type Date Date Clinician Unknown None Active Unknown None Unknown No Known Allergies For This Patient Medications Ordered Filled Start Stop Current Ordering Indication Dosage Frequency Signature Comments Components Medication Medication Date Date Medication? Clinician (SIG) Name Name Eliquis 2.5 Eliquis 2.5 2018-05 Yes [place] Unknown Unknown mg tablet mg tablet 05-21 Fatimah STRONG metoprolol metoprolol 2018-05 Yes [place] Unknown Unknown tartrate tartrate 1-04 Fatimah STRONG 100 mg 100 mg tablet tablet Cardizem CD Cardizem CD 2018-05 Yes [place] Unknown Unknown 120 mg 120 mg 1-04 Fatimah STRONG capsule,ext capsule,ext ended ended release release multivitami multivitami 2018-05 Yes [place] Unknown Unknown n with n with - Fatimah STRONG minerals minerals tablet tablet Co Q-10 150 Co Q-10 150 2018-05 Yes [place] Unknown Unknown mg capsule mg capsule 1-04 Fatimah STRONG niacin ER niacin ER 2018-05 Yes [place] Unknown Unknown 250 mg 250 mg -04 Fatimah STRONG tablet,exte tablet,exte nded nded release release iron 27mg iron 27mg 2018-05 Yes [place] Unknown Unknown 1-04 Fatimah STRONG pravastatin pravastatin 2018-05 Yes [place] Unknown Unknown 40 mg 40 mg - [...]
--- OUTSIDE RECORDS SUMMARY | 2019-07-05 16:33 | XMS REPORT ---
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 05-18 Michael (congestive (congestive [id number] ) heart ) heart failure failure Paroxysmal Paroxysmal Diagnosis Active Blade atrial atrial 05-18 Michael fibrillatio fibrillatio [id number] n n 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 05-18 Michael mellitus mellitus [id number] without without complicatio complicatio ns ns Diverticuli Diverticuli Diagnosis Active Blade tis of tis of 05-18 Michael intestine, intestine, [id number] part part unspecified unspecified , without , without perforation perforation or abscess or abscess without without bleeding bleeding Anemia, Anemia, Diagnosis Active Blade unspecified unspecified 05-18 Michael [id number] Benign Benign Diagnosis Active Blade prostatic prostatic Michael hyperplasia hyperplasia [id number] without without lower lower urinary urinary tract tract symptoms symptoms Lymphocytop Lymphocytop Diagnosis Active Blade enia enia Michael [id number] Encounter Encounter Diagnosis Active Blade for mary ellen Rodriguez attention attention [id number] to to 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 (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) (current) Michael use of use of [id number] anticoagula anticoagula nts nts Personal Personal Diagnosis Active Blade history of history of Michael transient transient [id number] ischemic ischemic attack attack (TIA), and (TIA), and cerebral cerebral infarction infarction without without residual residual deficits deficits Presence of Presence of Diagnosis Active Blade cardiac cardiac Michael pacemaker pacemaker [id number] Presence of Presence of Diagnosis Active Blade 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 [id number] Personal Personal Diagnosis Active Blade history of history of Michael nicotine nicotine [id number] dependence dependence Problems Problems Diagnosis Active Blade related to related to Michael living living [id number] alone alone Pain frequent Pain Mgmt Resolve 2018-052019-04-20 Lolis pain d 05-21 10:55:00 [place] 10:30: [id number] 00 Cardio edema Cardiovasc Active 2018-05 [place]olis ular 05-21 [place] 10:30: [id number] 00 Cardio knowledge/s Cardiovasc Active 2018-05 [place]olis kill ular 05-21 [place] deficit: pt 10:30: [id number] 00 Respiratory dyspnea Respirator Resolve 2018-052019-05-17 Lolis present y d 05-21 10:45:00 [place] 10:30: [id number] 00 Endo/Justice newly Endo/Justice Resolve 2018-052019-04-08 Lolis diagnosed d 05-21 09:45:00 [place] diabetes 10:30: [id number] 00 Endo/Justice diabetic Endo/Justice Resolve 2018-052019-04-08 Lolis foot care d 05-21 09:45:00 [place] 10:30: [id number] 00 Endo/Justice anti-coagul Endo/Justice Resolve 2018-052019-04-08 Lolis ation d 05-21 09:45:00 [place] therapy 10:30: [id number] 00 Sensory impaired Sensory Resolve 2018-052019-04-27 Lolis hearing d 05-21 10:45:00 [place] 10:30: [id number] 00 Integument skin Integument Resolve 2018-052019-03-30 Lolis integrity d 05-21 11:40:00 [place] risk 10:30: [id number] 00 Nutrition nutritional Nutrition Resolve 2018-052019-03-30 Lolis restriction d 05-21 11:40:00 [place] s 10:30: [id number] 00 Elimination ostomy Eliminatio Resolve 2018-052019-03-30 Lolis present n d 05-21 11:40:00 [place] 10:30: [id number] 00 Neuro confusion Neuro/Emot Resolve 2018-052019-05-17 Lolis present ion d 05-21 10:45:00 [place] 10:30: [id number] 00 Neuro impaired Neuro/Emot Resolve 2018-052019-05-17 [place]olis decision-ma ion d 05-21 10:45:00 [place] nir 10:30: [id number] 00 Activity ADL Activity Resolve 2018-052019-05-17 [place]olis assistance d 05-21 10:45:00 [place] required 10:30: [id number] 00 Activity self-care Activity Resolve 2018-052019-04-27 [place]olis deficit d 05-21 10:45:00 [place] 10:30: [id number] 00 Safety structural Safety Resolve 2018-052019-05-05 Lolis barriers d 05-21 10:55:00 Foreign present 10:30: [id number] 00 Safety fall risk Safety Resolve 2018-052019-05-05 Lolis factor d 05-21 10:55:00 [place] present 10:30: [id number] 00 Safety risk for Safety Resolve 2018-052019-05-05 Lolis hospitaliza d 05-21 10:55:00 [place] tion 10:30: [id number] 00 Safety can be left Safety Active 2018-05 Lolis alone for 05-21 [place] only short 10:30: [id number] periods 00 Safety safety Safety Resolve 2018-052019-05-05 QUALITY hazards d 05-21 10:55:00 REALTIME present 10:30: 00 Medication oral med Meds Resolve 2018-052019-04-20 [place]olis assistance d 05-21 10:55:00 [place] required 10:30: [id number] 00 Medication knowledge/s Meds Resolve 2018-052019-04-20 Lolis kill d 05-21 10:55:00 [place] deficit: pt 10:30: [id number] 00 Musculoskel transfer Musculoske Resolve 2018-052019-04-27 Lolis etal assistance letal d 05-21 10:45:00 [place] required 10:30: [id number] 00 Musculoskel requires Musculoske Resolve 2018-052019-04-27 Lolis etal human letal d 05-21 10:45:00 Foreign assist to 10:30: [id number] leave home 00 Cath/Ostomy k/s Cath\Ostom Resolve 2018-052019-03-30 [place] /GI deficit: y\GI Care d 05-21 11:40:00 [place] cath/ost/GI 10:30: [id number] care - pt 00 Balance/End balance/fry cook PT/OT: Resolve 2018-052019-05-17 Jaquan urance rdination Balance/En d 05-21 10:45:00 [place] deficit durance 12:07: [id number] 00 OT: Self self-care OT: Resolve 2018-052019-05-17 Jaquan Care deficit Self-Care d 05-21 10:45:00 [place] 12:07: [id number] 00 Gait/Locomo stair PT/OT: Resolve 2018-052019-05-17 Jaquan tion management Gait/Locom d 05-21 10:45:00 Kobziewicz problems req otion 12:07: [id number] 00 Gait/[place]ocomo gait PT/OT: Resolve 2018-052019-05-17 Jaquan tion deficit Gait/Locom d 05-21 10:45:00 Kobziewicz problems otion 12:07: [id number] 00 Elimination ostomy Eliminatio Resolve 2018-052019-04-20 Blade present n d 06-01 10:55:00 Michael 09:55: [id number] 00 Elimination urinary Eliminatio Resolve 2018-052019-05-17 Blade incontinenc n d 06-28 10:45:00 Michael coronel 10:45: [id number] 00 Elimination ostomy Eliminatio Resolve 2018-052019-05-17 Blade present n d - 10:45:00 Michael 10:45: [id number] 00 Safety risk for Safety Active 2018-05 Blade hospitaliza 07-11 Rodriguez tion 10:50: [id number] 00 Activity ADL Activity Unknown 2018-05 Blade assistance Rodriguez required 10:45: [id number] 00 Safety fall risk Safety Active 2018-05 Blade factor Rodriguez present 10:45: [id number] 00 Sensory impaired Sensory Active [place] hearing 06-07 [employer] [place] [employer] [place] 11:30: [id number] 00 Elimination urinary Eliminatio Resolve 2019-06-21 [place] incontinenc n d 06-07 10:55:00 [employer] [place] [employer] [place] e 11:30: [id number] 00 Elimination urinary Eliminatio Resolve 2019-06-21 [place] urgency n d 06-07 10:55:00 [employer] [place] 11:30: [id number] 00 Elimination ostomy Eliminatio Active [place] present n 06-07 [employer] [place] 11:30: [id number] 00 Neuro impaired Neuro/Emot Active [place] decision-ma ion 06-07 [employer] [place] nir 11:30: [id number] 00 Safety structural Safety Active [place] barriers 06-07 [employer] [place] present 11:30: [id number] 00 Safety sanitation Safety Active [place] hazards 06-07 [employer] [place] present 11:30: [id number] 00 Musculoskel requires Musculoske Active [place] etal human letal 06-07 [employer] [place] assist to 11:30: [id number] leave home 00 Allergies, Adverse Reactions, Alerts Allergy Allergy Status Severity Reaction(s) Onset Inactive Treating Comments Name Type Date Date Clinician Unknown None Active Unknown None Unknown No Known Allergies For This Patient Medications Ordered Filled Start Stop Current Ordering Indication Dosage Frequency Signature Comments Components Medication Medication Date Date Medication? Clinician (SIG) Name Name Eliquis 2.5 Eliquis 2.5 2018-05 No [place] Unknown Unknown mg tablet mg tablet 05-21 Fatimah STRONG metoprolol metoprolol 2018-05 No [place] Unknown Unknown tartrate tartrate 05-21 Fatimah STRONG 100 mg 100 mg tablet tablet Cardizem CD Cardizem CD 2018-05 No [place] Unknown Unknown 120 mg 120 mg 05-21 Fatimah STRONG capsule,ext capsule,ext ended ended release release multivitami multivitami 2018-05 No [place] Unknown Unknown n with n with 05-21 Fatimah STRONG minerals minerals tablet tablet Co Q-10 150 Co Q-10 150 2018-05 No [place] Unknown Unknown mg capsule mg capsule 05-21 Fatimah STRONG niacin ER niacin ER 2018-05 No [place] Unknown Unknown 250 mg 250 mg - Fatimah STRONG tablet,exte tablet,exte nded nded release release iron 27mg iron 27mg 2018-05 No [place] Unknown Unknown - Fatimah STRONG pravastatin pravastatin [...]
--- OUTSIDE RECORDS SUMMARY | 2019-07-05 16:33 | XMS REPORT ---
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 [id number] with heart with heart failure failure Chronic Chronic Diagnosis Active Blade systolic systolic 05-18 Michael (congestive (congestive [id number] ) heart ) heart failure failure Paroxysmal Paroxysmal Diagnosis Active Blade atrial atrial 05-18 Michael fibrillatio fibrillatio [id number] n n 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 05-18 Michael mellitus mellitus [id number] without without complicatio complicatio ns ns Diverticuli Diverticuli Diagnosis Active Blade tis of tis of 05-18 Michael intestine, intestine, [id number] part part unspecified unspecified , without , without perforation perforation or abscess or abscess without without bleeding bleeding Anemia, Anemia, Diagnosis Active Blade unspecified unspecified 05-18 Michael [id number] Benign Benign Diagnosis Active Blade prostatic prostatic Michael hyperplasia hyperplasia [id number] without without lower lower urinary urinary tract tract symptoms symptoms Lymphocytop Lymphocytop Diagnosis Active Blade enia enia Michael [id number] Encounter Encounter Diagnosis Active Blade for mary ellen Rodriguez attention attention [id number] to to 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) (current) Michael use of use of [id number] anticoagula anticoagula nts nts Personal Personal Diagnosis Active Blade history of history of Michael 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 (TIA), and (TIA), and cerebral cerebral infarction infarction without without residual residual deficits deficits Presence of Presence of Diagnosis Active Blade cardiac cardiac Michael pacemaker pacemaker [id number] Presence of Presence of Diagnosis Active Blade 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 [id number] Personal Personal Diagnosis Active Blade history of history of Michael nicotine nicotine [id number] dependence dependence Problems Problems Diagnosis Active Blade related to related to Michael living living [id number] alone alone Pain frequent Pain Mgmt Resolve 2018-052019-04-20 [place] pain d 05-21 10:55:00 [place] 10:30: [id number] 00 Cardio edema Cardiovasc Active 2018-05 [place] ular 05-21 [place] 10:30: [id number] 00 Cardio knowledge/s Cardiovasc Active 2018-05 [place] kill ular 05-21 [place] deficit: pt 10:30: [id number] 00 Respiratory dyspnea Respirator Resolve 2018-052019-05-17 [place] present y d 05-21 10:45:00 [place] 10:30: [id number] 00 Endo/Justice newly Endo/Justice Resolve 2018-052019-04-08 Lolis diagnosed d 05-21 09:45:00 [place] diabetes 10:30: [id number] 00 Endo/Justice diabetic Endo/Justice Resolve 2018-052019-04-08 Lolis foot care d 05-21 09:45:00 [place] 10:30: [id number] 00 Endo/Justice anti-coagul Endo/Justice Resolve 2018-052019-04-08 Lolis ation d 05-21 09:45:00 [place] therapy 10:30: [id number] 00 Sensory impaired Sensory Resolve 2018-052019-04-27 Lolis hearing d 05-21 10:45:00 [place] 10:30: [id number] 00 Integument skin Integument Resolve 2018-052019-03-30 Lolis integrity d 05-21 11:40:00 [place] risk 10:30: [id number] 00 Nutrition nutritional Nutrition Resolve 2018-052019-03-30 Lolis restriction d 05-21 11:40:00 [place] s 10:30: [id number] 00 Elimination ostomy Eliminatio Resolve 2018-052019-03-30 Ollis present n d 05-21 11:40:00 [place] 10:30: [id number] 00 Neuro confusion Neuro/Emot Resolve 2018-052019-05-17 [place]olis present ion d 05-21 10:45:00 [place] 10:30: [id number] 00 Neuro impaired Neuro/Emot Resolve 2018-052019-05-17 Lolis decision-ma ion d 05-21 10:45:00 [place] nir 10:30: [id number] 00 Activity ADL Activity Resolve 2018-052019-05-17 [place] assistance d 05-21 10:45:00 [place] required 10:30: [id number] 00 Activity self-care Activity Resolve 2018-052019-04-27 [place]olis deficit d 05-21 10:45:00 [place] 10:30: [id number] 00 Safety structural Safety Resolve 2018-052019-05-05 Lolis barriers d 05-21 10:55:00 Foreign present 10:30: [id number] 00 Safety fall risk Safety Resolve 2018-052019-05-05 Lolis factor d 05-21 10:55:00 [place] present 10:30: [id number] 00 Safety risk for Safety Resolve 2018-052019-05-05 Lolis hospitaliza d 05-21 10:55:00 [place] tion 10:30: [id number] 00 Safety can be left Safety Active 2018-05 Lolis alone for 05-21 [place] only short 10:30: [id number] 00 Safety safety Safety Resolve 2018-052019-05-05 QUALITY hazards d 05-21 10:55:00 REALTIME present 10:30: 00 Medication oral med Meds Resolve 2018-052019-04-20 [place] assistance d 05-21 10:55:00 [place] required 10:30: [id number] 00 Medication knowledge/s Meds Resolve 2018-052019-04-20 [place]olis kill d 05-21 10:55:00 [place] deficit: pt 10:30: [id number] 00 Musculoskel transfer Musculoske Resolve 2018-052019-04-27 Lolis etal assistance letal d 05-21 10:45:00 [place] required 10:30: [id number] 00 Musculoskel requires Musculoske Resolve 2018-052019-04-27 Lolis etal human letal d 05-21 10:45:00 Foreign assist to 10:30: [id number] leave home 00 Cath/Ostomy k/s Cath\Ostom Resolve 2018-052019-03-30 Lolis /GI deficit: y\GI Care d 05-21 11:40:00 [place] cath/ost/GI 10:30: [id number] care - pt 00 Balance/End balance/tank cooper PT/OT: Resolve 2018-052019-05-17 Jaquan onealance rdination Balance/En d 05-21 10:45:00 [place] deficit durance 12:07: [id number] 00 OT: Self self-care OT: Resolve 2018-052019-05-17 Jaquan Care deficit Self-Care d 05-21 10:45:00 [place] 12:07: [id number] 00 Gait/Locomo stair PT/OT: Resolve 2018-052019-05-17 Jaquan tion management Gait/Locom d 05-21 10:45:00 [place] problems req otion 12:07: [id number] 00 Gait/[place]ocomo gait PT/OT: Resolve 2018-052019-05-17 Jaquan tion deficit Gait/Locom d 05-21 10:45:00 [place] problems otion 12:07: [id number] 00 Elimination ostomy Eliminatio Resolve 2018-052019-04-20 Blade present n d 1-15 10:55:00 Michael 09:55: [id number] 00 Elimination urinary Eliminatio Resolve 2018-052019-05-17 Blade incontinenc n d 2-11 10:45:00 Michael coronel 10:45: [id number] 00 Elimination ostomy Eliminatio Resolve 2018-052019-05-17 Blade present n d 2-11 10:45:00 Michael 10:45: [id number] 00 Safety risk for Safety Active 2018-05 Blade hospitaliza 07-11 Michael tion 10:50: [id number] 00 Activity ADL Activity Unknown 2018-05 Blade assistance Rodriguez required 10:45: [id number] 00 Safety fall risk Safety Active 2018-05 Blade factor Rodriguez present 10:45: [id number] 00 Allergies, Adverse Reactions, Alerts Allergy Allergy Status Severity Reaction(s) Onset Inactive Treating Comments Name Type Date Date Clinician Unknown None Active Unknown None Unknown No Known Allergies For This Patient Medications Ordered Filled Start Stop Current Ordering Indication Dosage Frequency Signature Comments Components Medication Medication Date Date Medication? Clinician (SIG) Name Name Eliquis 2.5 Eliquis 2.5 2018-05 Yes [place] Unknown Unknown mg tablet mg tablet 05-21 Fatimah STRONG metoprolol metoprolol 2018-05 Yes [place] Unknown Unknown tartrate tartrate 1-04 Fatimah STRONG 100 mg 100 mg tablet tablet Cardizem CD Cardizem CD 2018-05 Yes [place] Unknown Unknown 120 mg 120 mg 1-04 Fatimah STRONG capsule,ext capsule,ext ended ended release release multivitami multivitami 2018-05 Yes [place] Unknown Unknown n with n with - Fatimah STRONG minerals minerals tablet tablet Co Q-10 150 Co Q-10 150 2018-05 Yes [place] Unknown Unknown mg capsule mg capsule 1-04 Fatimah STRONG niacin ER niacin ER 2018-05 Yes [place] Unknown Unknown 250 mg 250 mg -04 Fatimah STRONG tablet,exte tablet,exte nded nded release release iron 27mg iron 27mg 2018-05 Yes [place] Unknown Unknown 1-04 Fatimah STRONG pravastatin pravastatin 2018-05 Yes [place] Unknown Unknown 40 mg 40 mg - [...]
--- OUTSIDE RECORDS SUMMARY | 2019-07-05 16:33 | XMS REPORT ---
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 05-18 Michael (congestive (congestive [id number] ) heart ) heart failure failure Paroxysmal Paroxysmal Diagnosis Active Blade atrial atrial 05-18 Michael fibrillatio fibrillatio [id number] n n 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 05-18 Michael mellitus mellitus [id number] without without complicatio complicatio ns ns Diverticuli Diverticuli Diagnosis Active Blade tis of tis of 05-18 Michael intestine, intestine, [id number] part part unspecified unspecified , without , without perforation perforation or abscess or abscess without without bleeding bleeding Anemia, Anemia, Diagnosis Active Blade unspecified unspecified 05-18 Michael [id number] Benign Benign Diagnosis Active Blade prostatic prostatic Michael hyperplasia hyperplasia [id number] without without lower lower urinary urinary tract tract symptoms symptoms Lymphocytop Lymphocytop Diagnosis Active Blade enia enia Michael [id number] Encounter Encounter Diagnosis Active Blade for mary ellen Rodriguez attention attention [id number] to 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 (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) (current) Michael use of use of [id number] anticoagula anticoagula nts nts Personal Personal Diagnosis Active Blade history of history of Michael transient transient [id number] ischemic ischemic attack attack (TIA), and (TIA), and cerebral cerebral infarction infarction without without residual residual deficits deficits Presence of Presence of Diagnosis Active Blade cardiac cardiac Michael pacemaker pacemaker [id number] Presence of Presence of Diagnosis Active Blade 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 [id number] Personal Personal Diagnosis Active Blade history of history of Michael nicotine nicotine [id number] dependence dependence Problems Problems Diagnosis Active Blade related to related to Michael living living [id number] alone alone Pain frequent Pain Mgmt Resolve 2018-052019-04-20 Lolis pain d 05-21 10:55:00 [place] 10:30: [id number] 00 Cardio edema Cardiovasc Active 2018-05 [place]olis ular 05-21 [place] 10:30: [id number] 00 Cardio knowledge/s Cardiovasc Active 2018-05 [place]olis kill ular 05-21 [place] deficit: pt 10:30: [id number] 00 Respiratory dyspnea Respirator Resolve 2018-052019-05-17 Lolis present y d 05-21 10:45:00 [place] 10:30: [id number] 00 Endo/Justice newly Endo/Justice Resolve 2018-052019-04-08 Lolis diagnosed d 05-21 09:45:00 [place] diabetes 10:30: [id number] 00 Endo/Justice diabetic Endo/Justice Resolve 2018-052019-04-08 Lolis foot care d 05-21 09:45:00 [place] 10:30: [id number] 00 Endo/Justice anti-coagul Endo/Justice Resolve 2018-052019-04-08 Lolis ation d 05-21 09:45:00 [place] therapy 10:30: [id number] 00 Sensory impaired Sensory Resolve 2018-052019-04-27 Lolis hearing d 05-21 10:45:00 [place] 10:30: [id number] 00 Integument skin Integument Resolve 2018-052019-03-30 Lolis integrity d 05-21 11:40:00 [place] risk 10:30: [id number] 00 Nutrition nutritional Nutrition Resolve 2018-052019-03-30 Lolis restriction d 05-21 11:40:00 [place] s 10:30: [id number] 00 Elimination ostomy Eliminatio Resolve 2018-052019-03-30 [place]olis present n d 05-21 11:40:00 [place] 10:30: [id number] 00 Neuro confusion Neuro/Emot Resolve 2018-052019-05-17 Lolis present ion d 05-21 10:45:00 [place] 10:30: [id number] 00 Neuro impaired Neuro/Emot Resolve 2018-052019-05-17 [place]olis decision-ma ion d 05-21 10:45:00 [place] nir 10:30: [id number] 00 Activity ADL Activity Resolve 2018-052019-05-17 [place] assistance d 05-21 10:45:00 [place] required 10:30: [id number] 00 Activity self-care Activity Resolve 2018-052019-04-27 [place] deficit d 05-21 10:45:00 [place] 10:30: [id number] 00 Safety structural Safety Resolve 2018-052019-05-05 Lolis barriers d 05-21 10:55:00 Foreign present 10:30: [id number] 00 Safety fall risk Safety Resolve 2018-052019-05-05 Lolis factor d 05-21 10:55:00 [place] present 10:30: [id number] 00 Safety risk for Safety Resolve 2018-052019-05-05 Lolis hospitaliza d 05-21 10:55:00 [place] tion 10:30: [id number] 00 Safety can be left Safety Active 2018-05 Lolis alone for 05-21 [place] only short 10:30: [id number] 00 Safety safety Safety Resolve 2018-052019-05-05 QUALITY hazards d 05-21 10:55:00 REALTIME present 10:30: 00 Medication oral med Meds Resolve 2018-052019-04-20 [place] assistance d 05-21 10:55:00 [place] required 10:30: [id number] 00 Medication knowledge/s Meds Resolve 2018-052019-04-20 [place] kill d 05-21 10:55:00 [place] deficit: pt 10:30: [id number] 00 Musculoskel transfer Musculoske Resolve 2018-052019-04-27 Lolis etal assistance letal d 05-21 10:45:00 [place] required 10:30: [id number] 00 Musculoskel requires Musculoske Resolve 2018-052019-04-27 Lolis etal human letal d 05-21 10:45:00 Foreign assist to 10:30: [id number] leave home 00 Cath/Ostomy k/s Cath\Ostom Resolve 2018-052019-03-30 [place] /GI deficit: y\GI Care d 05-21 11:40:00 [place] cath/ost/GI 10:30: [id number] care - pt 00 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 PT/OT: Resolve 2018-052019-05-17 Jaquan urance rdination Balance/En d 05-21 10:45:00 [place] deficit durance 12:07: [id number] 00 OT: Self self-care OT: Resolve 2018-052019-05-17 Jaquan Care deficit Self-Care d 05-21 10:45:00 [place] 12:07: [id number] 00 Gait/Locomo stair PT/OT: Resolve 2018-052019-05-17 Jaquan tion management Gait/Locom d 05-21 10:45:00 [place] problems req otion 12:07: [id number] 00 Gait/[place] gait PT/OT: Resolve 2018-052019-05-17 Jaquan tion deficit Gait/Locom d 05-21 10:45:00 [place] problems otion 12:07: [id number] 00 Elimination ostomy Eliminatio Resolve 2018-052019-04-20 Blade present n d 06-01 10:55:00 Michael 09:55: [id number] 00 Elimination urinary Eliminatio Resolve 2018-052019-05-17 Blade incontinenc n d 06-28 10:45:00 Michael coronel 10:45: [id number] 00 Elimination ostomy Eliminatio Resolve 2018-052019-05-17 Blade present n d - 10:45:00 Michael 10:45: [id number] 00 Safety risk for Safety Active 2018-05 Blade hospitaliza 07-11 [place] tion 10:50: [id number] 00 Activity ADL Activity Unknown 2018-05 Blade assistance Rodriguez required 10:45: [id number] 00 Safety fall risk Safety Active 2018-05 Blade factor Rodriguez present 10:45: [id number] 00 Sensory impaired Sensory Active [place] hearing 06-07 [place] 11:30: [id number] 00 Elimination urinary Eliminatio Resolve 2019-06-21 [place] incontinenc n d 06-07 10:55:00 [place] e 11:30: [id number] 00 Elimination urinary Eliminatio Resolve 2019-06-21 [place] urgency n d 06-07 10:55:00 [place] 11:30: [id number] 00 Elimination ostomy Eliminatio Active [place] present n 06-07 [place] 11:30: [id number] 00 Neuro impaired Neuro/Emot Active [place] decision-ma ion 06-07 [place] nir 11:30: [id number] 00 Safety structural Safety Active [place] barriers 06-07 [place] present 11:30: [id number] 00 Safety sanitation Safety Active [place] hazards 06-07 [place] present 11:30: [id number] 00 Musculoskel requires Musculoske Active Cherrise etal human letal 06-07 [place] assist to 11:30: [id number] leave home 00 Allergies, Adverse Reactions, Alerts Allergy Allergy Status Severity Reaction(s) Onset Inactive Treating Comments Name Type Date Date Clinician Unknown None Active Unknown None Unknown No Known Allergies For This Patient Medications Ordered Filled Start Stop Current Ordering Indication Dosage Frequency Signature Comments Components Medication Medication Date Date Medication? Clinician (SIG) Name Name Eliquis 2.5 Eliquis 2.5 2018-05 No [place] Unknown Unknown mg tablet mg tablet 05-21 Fatimah STRONG metoprolol metoprolol 2018-05 No Vitcor Manuel Unknown Unknown tartrate tartrate 05-21 Fatimah STRONG 100 mg 100 mg tablet tablet Cardizem CD Cardizem CD 2018-05 No [place] Unknown Unknown 120 mg 120 mg 05-21 Fatimah STRONG capsule,ext capsule,ext ended ended release release multivitami multivitami 2018-05 No [place] Unknown Unknown n with n with 05-21 Fatimah STRONG minerals minerals tablet tablet Co Q-10 150 Co Q-10 150 2018-05 No [place] Unknown Unknown mg capsule mg capsule 05-21 Fatimah STRONG niacin ER niacin ER 2018-05 No [place] Unknown Unknown 250 mg 250 mg - Fatimah STRONG tablet,exte tablet,exte nded nded release release iron 27mg iron 27mg 2018-05 No [place] Unknown Unknown - Fatimah STRONG pravastatin pravastatin [...]
--- OUTSIDE RECORDS SUMMARY | 2019-07-05 16:33 | XMS REPORT ---
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 Chronic Chronic Diagnosis Active Blade systolic systolic 05-18 Michael (congestive (congestive [id number] ) heart ) heart failure failure Paroxysmal Paroxysmal Diagnosis Active Blade atrial atrial 05-18 Michael fibrillatio fibrillatio [id number] n n 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 05-18 Michael mellitus mellitus [id number] without without complicatio complicatio ns ns Diverticuli Diverticuli Diagnosis Active Blade tis of tis of 05-18 Michael intestine, intestine, [id number] part part unspecified unspecified , without , without perforation perforation or abscess or abscess without without bleeding bleeding Anemia, Anemia, Diagnosis Active Blade unspecified unspecified 05-18 Michael [id number] Benign Benign Diagnosis Active Blade prostatic prostatic Michael hyperplasia hyperplasia [id number] without without lower lower urinary urinary tract tract symptoms symptoms Lymphocytop Lymphocytop Diagnosis Active Blade enia enia Michael [id number] Encounter Encounter Diagnosis Active Blade for mary ellen Rodriguez attention attention [id number] to to colostomy colostomy 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 Diagnosis Active Blade (current) (current) Michael use of use of [id number] anticoagula anticoagula nts nts Personal Personal Diagnosis Active Blade history of history of Michael transient transient [id number] ischemic ischemic attack attack (TIA), and (TIA), and cerebral cerebral infarction infarction without without residual residual deficits deficits Presence of Presence of Diagnosis Active Blade cardiac cardiac Michael pacemaker pacemaker [id number] Presence of Presence of Diagnosis Active Blade 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 [id number] Personal Personal Diagnosis Active Blade history of history of Michael nicotine nicotine [id number] dependence dependence Problems Problems Diagnosis Active Blade related to related to Michael living living [id number] alone alone Pain frequent Pain Mgmt Resolve 2018-052019-04-20 [place] pain d 05-21 10:55:00 [place] 10:30: [id number] 00 Cardio edema Cardiovasc Active 2018-05 [place] ular 05-21 [place] 10:30: [id number] 00 Cardio knowledge/s Cardiovasc Active 2018-05 [place] kill ular 05-21 [place] deficit: pt 10:30: [id number] 00 Respiratory dyspnea Respirator Resolve 2018-052019-05-17 [place] present y d 05-21 10:45:00 [place] 10:30: [id number] 00 Endo/Justice newly Endo/Justice Resolve 2018-052019-04-08 [place] diagnosed d 05-21 09:45:00 [place] diabetes 10:30: [id number] 00 Endo/Justice diabetic Endo/Justice Resolve 2018-052019-04-08 [place] foot care d 05-21 09:45:00 [place] 10:30: [id number] 00 Endo/Justice anti-coagul Endo/Justice Resolve 2018-052019-04-08 [place] ation d 05-21 09:45:00 [place] therapy 10:30: [id number] 00 Sensory impaired Sensory Resolve 2018-052019-04-27 [place] hearing d 05-21 10:45:00 [place] 10:30: [id number] 00 Integument skin Integument Resolve 2018-052019-03-30 [place] integrity d 05-21 11:40:00 [place] risk 10:30: [id number] 00 Nutrition nutritional Nutrition Resolve 2018-052019-03-30 [place] restriction d 05-21 11:40:00 [place] s 10:30: [id number] 00 Elimination ostomy Eliminatio Resolve 2018-052019-03-30 [place] present n d 05-21 11:40:00 [place] 10:30: [id number] 00 Neuro confusion Neuro/Emot Resolve 2018-052019-05-17 [place] present ion d 05-21 10:45:00 [place] 10:30: [id number] 00 Neuro impaired Neuro/Emot Resolve 2018-052019-05-17 [place] decision-ma ion d 05-21 10:45:00 [place] nir 10:30: [id number] 00 Activity ADL Activity Resolve 2018-052019-05-17 [place] assistance d 05-21 10:45:00 [place] required 10:30: [id number] 00 Activity self-care Activity Resolve 2018-052019-04-27 [place] deficit d 05-21 10:45:00 [place] 10:30: [id number] 00 Safety structural Safety Resolve 2018-052019-05-05 [place] barriers d 05-21 10:55:00 [place] present 10:30: [id number] 00 Safety fall risk Safety Resolve 2018-052019-05-05 [place] factor d 05-21 10:55:00 [place] present 10:30: [id number] 00 Safety risk for Safety Resolve 2018-052019-05-05 [place] hospitaliza d 05-21 10:55:00 [place] tion 10:30: [id number] 00 Safety can be left Safety Active 2018-05 [place] alone for 05-21 [place] only short 10:30: [id number] 00 Safety safety Safety Resolve 2018-052019-05-05 QUALITY hazards d 05-21 10:55:00 REAL[place] present 10:30: 00 Medication oral med Meds Resolve 2018-052019-04-20 [place] assistance d 05-21 10:55:00 [place] required 10:30: [id number] 00 Medication knowledge/s Meds Resolve 2018-052019-04-20 [place] kill d 05-21 10:55:00 [place] deficit: pt 10:30: [id number] 00 Musculoskel transfer Musculoske Resolve 2018-052019-04-27 [place] etal assistance letal d 05-21 10:45:00 [place] required 10:30: [id number] 00 Musculoskel requires Musculoske Resolve 2018-052019-04-27 [place] etal human letal d 05-21 10:45:00 [place] assist to 10:30: [id number] leave home 00 Cath/Ostomy k/s Cath\Ostom Resolve 2018-052019-03-30 [place] /GI deficit: y\GI Care d 05-21 11:40:00 [place] cath/ost/GI 10:30: [id number] care - pt 00 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 PT/OT: Resolve 2018-052019-05-17 Jaquan urance rdination Balance/En d 05-21 10:45:00 [place] deficit durance 12:07: [id number] 00 OT: Self self-care OT: Resolve 2018-052019-05-17 Jaquan Care deficit Self-Care d 05-21 10:45:00 [place] 12:07: [id number] 00 Gait/Locomo stair PT/OT: Resolve 2018-052019-05-17 Jaquan tion management Gait/Locom d 05-21 10:45:00 [place] problems req otion 12:07: [id number] 00 Gait/[place] gait PT/OT: Resolve 2018-052019-05-17 Jaquan tion deficit Gait/Locom d 05-21 10:45:00 [place] problems otion 12:07: [id number] 00 Elimination ostomy Eliminatio Resolve 2018-052019-04-20 [place]ade present n d 06-01 10:55:00 Michael 09:55: [id number] 00 Elimination urinary Eliminatio Resolve 2018-052019-05-17 [place]ade incontinenc n d 06-28 10:45:00 Michael coronel 10:45: [id number] 00 Elimination ostomy Eliminatio Resolve 2018-052019-05-17 [place]ade present n d - 10:45:00 Michael 10:45: [id number] 00 Safety risk for Safety Active 2018-05 Blade hospitaliza 07-11 [place] tion 10:50: [id number] 00 Activity ADL Activity Unknown 2018-05 Blade assistance Rodriguez required 10:45: [id number] 00 Safety fall risk Safety Active 2018-05 Blade factor Rodriguez present 10:45: [id number] 00 Sensory impaired Sensory Active [place] hearing 06-07 [place] 11:30: [id number] 00 Elimination urinary Eliminatio Resolve 2019-06-21 [place] incontinenc n d 06-07 10:55:00 [place] e 11:30: [id number] 00 Elimination urinary Eliminatio Resolve 2019-06-21 [place] urgency n d 06-07 10:55:00 [place] 11:30: [id number] 00 Elimination ostomy Eliminatio Active Cherrise present n 06-07 [place] 11:30: [id number] 00 Neuro impaired Neuro/Emot Active [place] decision-ma ion 06-07 [place] nir 11:30: [id number] 00 Safety structural Safety Active Cherrise barriers 06-07 [place] present 11:30: [id number] 00 Safety sanitation Safety Active Cherrise hazards 06-07 [place] present 11:30: [id number] 00 Musculoskel requires Musculoske Active Cherrise etal human letal 06-07 [place] assist to 11:30: [id number] leave home 00 Allergies, Adverse Reactions, Alerts Allergy Allergy Status Severity Reaction(s) Onset Inactive Treating Comments Name Type Date Date Clinician Unknown None Active Unknown None Unknown No Known Allergies For This Patient Medications Ordered Filled Start Stop Current Ordering Indication Dosage Frequency Signature Comments Components Medication Medication Date Date Medication? Clinician (SIG) Name Name Eliquis 2.5 Eliquis 2.5 2018-05 No [place] Unknown Unknown mg tablet mg tablet 05-21 Fatimah STRONG metoprolol metoprolol 2018-05 No [place] Unknown Unknown tartrate tartrate 05-21 Fatimah STRONG 100 mg 100 mg tablet tablet Cardizem CD Cardizem CD 2018-05 No [place] Unknown Unknown 120 mg 120 mg 05-21 Fatimah STRONG capsule,ext capsule,ext ended ended release release multivitami multivitami 2018-05 No [place] Unknown Unknown n with n with 05-21 Fatimah STRONG minerals minerals tablet tablet Co Q-10 150 Co Q-10 150 2018-05 No [place] Unknown Unknown mg capsule mg capsule 05-21 Fatimah STRONG niacin ER niacin ER 2018-05 No [place] Unknown Unknown 250 mg 250 mg - Fatimah STRONG tablet,exte tablet,exte nded nded release release iron 27mg iron 27mg 2018-05 No [place] Unknown Unknown - Fatimah STRONG pravastatin pravastatin 2018-05 No [place] Unknown Unknown 40 mg 40 mg 06-01 Fatimah STRONG tablet tablet Vital Signs Vital Name Observation Time Observation Value Comments SYSTOLIC mm[Hg] 2019-06-28 18:10:20 136 mm[Hg] mm[Hg] Method: Sit SYSTOLIC mm[Hg] 2019-03-21 18:08:41 128 mm[Hg] mm[Hg] Method: Stand DIASTOLIC mm[Hg] 2019-06-28 18:10:20 68 mm[Hg] mm[Hg] Method: Sit DIASTOLIC mm[Hg] 2019-03-21 18:08:41 70 mm[Hg] mm[Hg] Method: Stand PULSE 2019-06-28 18:10:20 68 /min /min RESP RATE 2019-06-28 18:10:20 16 /min /min TEMP 2019-06-28 18:10:20 97.8 [degF] Procedures This patient has no known procedures. Results This patient has no known results.
--- OUTSIDE RECORDS SUMMARY | 2019-07-05 16:33 | XMS REPORT ---
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 [id number] with heart with heart failure failure Chronic Chronic Diagnosis Active Blade systolic systolic 05-18 Michael (congestive (congestive [id number] ) heart ) heart failure failure Paroxysmal Paroxysmal Diagnosis Active Blade atrial atrial 05-18 Michael fibrillatio fibrillatio [id number] n n 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 05-18 Michael mellitus mellitus [id number] without without complicatio complicatio ns ns Diverticuli Diverticuli Diagnosis Active Blade tis of tis of 05-18 Michael intestine, intestine, [id number] part part unspecified unspecified , without , without perforation perforation or abscess or abscess without without bleeding bleeding Anemia, Anemia, Diagnosis Active Blade unspecified unspecified 05-18 Michael [id number] Benign Benign Diagnosis Active Blade prostatic prostatic Michael hyperplasia hyperplasia [id number] without without lower lower urinary urinary tract tract symptoms symptoms Lymphocytop Lymphocytop Diagnosis Active Blade enia enia Michael [id number] Encounter Encounter Diagnosis Active Blade for mary ellen Rodriguez attention attention [id number] to to colostomy colostomy [facility]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 Diagnosis Active Blade (current) (current) Michael use of use of [id number] anticoagula anticoagula nts nts Personal Personal Diagnosis Active Blade history of history of Michael transient transient [id number] ischemic ischemic attack attack (TIA), and (TIA), and cerebral cerebral infarction infarction without without residual residual deficits deficits Presence of Presence of Diagnosis Active Blade cardiac cardiac Michael pacemaker pacemaker [id number] Presence of Presence of Diagnosis Active Blade 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 [id number] Personal Personal Diagnosis Active Blade history of history of Michael nicotine nicotine [id number] dependence dependence Problems Problems Diagnosis Active Blade related to related to Michael living living [id number] alone alone Pain frequent Pain Mgmt Resolve 2018-052019-04-20 [place] pain d 05-21 10:55:00 [place] 10:30: [id number] 00 Cardio edema Cardiovasc Active 2018-05 [place] ular 05-21 [place] 10:30: [id number] 00 Cardio knowledge/s Cardiovasc Active 2018-05 [place] kill ular 05-21 [place] deficit: pt 10:30: [id number] 00 Respiratory dyspnea Respirator Resolve 2018-052019-05-17 [place] present y d 05-21 10:45:00 [place] 10:30: [id number] 00 Endo/Justice newly Endo/Justice Resolve 2018-052019-04-08 [place] diagnosed d 05-21 09:45:00 [place] diabetes 10:30: [id number] 00 Endo/Justice diabetic Endo/Justice Resolve 2018-052019-04-08 [place] foot care d 05-21 09:45:00 [place] 10:30: [id number] 00 Endo/Justice anti-coagul Endo/Justice Resolve 2018-052019-04-08 [place] ation d 05-21 09:45:00 [place] therapy 10:30: [id number] 00 Sensory impaired Sensory Resolve 2018-052019-04-27 [place] hearing d 05-21 10:45:00 [place] 10:30: [id number] 00 Integument skin Integument Resolve 2018-052019-03-30 [place] integrity d 05-21 11:40:00 [place] risk 10:30: [id number] 00 Nutrition nutritional Nutrition Resolve 2018-052019-03-30 [place] restriction d 05-21 11:40:00 [place] s 10:30: [id number] 00 Elimination ostomy Eliminatio Resolve 2018-052019-03-30 [place] present n d 05-21 11:40:00 [place] 10:30: [id number] 00 Neuro confusion Neuro/Emot Resolve 2018-052019-05-17 [place] present ion d 05-21 10:45:00 [place] 10:30: [id number] 00 Neuro impaired Neuro/Emot Resolve 2018-052019-05-17 [place] decision-ma ion d 05-21 10:45:00 [place] nir 10:30: [id number] 00 Activity ADL Activity Resolve 2018-052019-05-17 [place] assistance d 05-21 10:45:00 [place] required 10:30: [id number] 00 Activity self-care Activity Resolve 2018-052019-04-27 [place] deficit d 05-21 10:45:00 [place] 10:30: [id number] 00 Safety structural Safety Resolve 2018-052019-05-05 [place] barriers d 05-21 10:55:00 [place] present 10:30: [id number] 00 Safety fall risk Safety Resolve 2018-052019-05-05 [place] factor d 05-21 10:55:00 [place] present 10:30: [id number] 00 Safety risk for Safety Resolve 2018-052019-05-05 [place] hospitaliza d 05-21 10:55:00 [place] tion 10:30: [id number] 00 Safety can be left Safety Active 2018-05 [place] alone for 05-21 [place] only short 10:30: [id number] periods 00 Safety safety Safety Resolve 2018-052019-05-05 QUALITY hazards d 05-21 10:55:00 [place] present 10:30: 00 Medication oral med Meds Resolve 2018-052019-04-20 [place] assistance d 05-21 10:55:00 [place] required 10:30: [id number] 00 Medication knowledge/s Meds Resolve 2018-052019-04-20 [place] kill d 05-21 10:55:00 [place] deficit: pt 10:30: [id number] 00 Musculoskel transfer Musculoske Resolve 2018-052019-04-27 [place] etal assistance letal d 05-21 10:45:00 [place] required 10:30: [id number] 00 Musculoskel requires Musculoske Resolve 2018-052019-04-27 [place] etal human letal d 05-21 10:45:00 [place] assist to 10:30: [id number] leave home 00 Cath/Ostomy k/s Cath\Ostom Resolve 2018-052019-03-30 [place] /GI deficit: y\GI Care d 05-21 11:40:00 [place] cath/ost/GI 10:30: [id number] care - pt 00 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 PT/OT: Resolve 2018-052019-05-17 Jaquan urance rdination Balance/En d 05-21 10:45:00 [place] deficit durance 12:07: [id number] 00 OT: Self self-care OT: Resolve 2018-052019-05-17 Jaquan Care deficit Self-Care d 05-21 10:45:00 [place] 12:07: [id number] 00 Gait/Locomo stair PT/OT: Resolve 2018-052019-05-17 Jaquan tion management Gait/Locom d 05-21 10:45:00 [place] problems req otion 12:07: [id number] 00 Gait/[place] gait PT/OT: Resolve 2018-052019-05-17 Jaquan tion deficit Gait/Locom d 05-21 10:45:00 [place] problems otion 12:07: [id number] 00 Elimination ostomy Eliminatio Resolve 2018-052019-04-20 [place]ade present n d 06-01 10:55:00 Michael 09:55: [id number] 00 Elimination urinary Eliminatio Resolve 2018-052019-05-17 Blade incontinenc n d 06-28 10:45:00 Michael coronel 10:45: [id number] 00 Elimination ostomy Eliminatio Resolve 2018-052019-05-17 Blade present n d - 10:45:00 Michael 10:45: [id number] 00 Safety risk for Safety Active 2018-05 Blade hospitaliza 07-11 [place] tion 10:50: [id number] 00 Activity ADL Activity Unknown 2018-05 Blade assistance [place] required 10:45: [id number] 00 Safety fall risk Safety Active 2018-05 Blade factor Rodriguez present 10:45: [id number] 00 Sensory impaired Sensory Active Cher[place] hearing 06-07 [place] 11:30: [id number] 00 Elimination urinary Eliminatio Resolve 2019-06-21 [place] incontinenc n d 06-07 10:55:00 [place] e 11:30: [id number] 00 Elimination urinary Eliminatio Resolve 2019-06-21 [place] urgency n d 06-07 10:55:00 [place] 11:30: [id number] 00 Elimination ostomy Eliminatio Active Cherrise present n 06-07 [place] 11:30: [id number] 00 Neuro impaired Neuro/Emot Active [place] decision-ma ion 06-07 [place] nir 11:30: [id number] 00 Safety structural Safety Active [place] barriers 06-07 [place] present 11:30: [id number] 00 Safety sanitation Safety Active [place] hazards 06-07 [place] present 11:30: [id number] 00 Musculoskel requires Musculoske Active Cherrise etal human letal 06-07 [place] assist to 11:30: [id number] leave home 00 Allergies, Adverse Reactions, Alerts Allergy Allergy Status Severity Reaction(s) Onset Inactive Treating Comments Name Type Date Date Clinician Unknown None Active Unknown None Unknown No Known Allergies For This Patient Medications Ordered Filled Start Stop Current Ordering Indication Dosage Frequency Signature Comments Components Medication Medication Date Date Medication? Clinician (SIG) Name Name Eliquis 2.5 Eliquis 2.5 2018-05 No [place] Unknown Unknown mg tablet mg tablet 05-21 Fatimah STRONG metoprolol metoprolol 2018-05 No [place] Unknown Unknown tartrate tartrate 05-21 Fatimah STRONG 100 mg 100 mg tablet tablet Cardizem CD Cardizem CD 2018-05 No [place] Unknown Unknown 120 mg 120 mg - Fatimah STRONG capsule,ext capsule,ext ended ended release release multivitami multivitami 2018-05 No [place] Unknown Unknown n with n with 05-21 Fatimah STRONG minerals minerals tablet tablet Co Q-10 150 Co Q-10 150 2018-05 No [place] Unknown Unknown mg capsule mg capsule - Fatimah STRONG niacin ER niacin ER 2018-05 No [place] Unknown Unknown 250 mg 250 mg - Fatimah STRONG tablet,exte tablet,exte nded nded release release iron 27mg iron 27mg 2018-05 No [place] Unknown Unknown - Fatimah STRONG pravastatin pravastatin [...]
--- OUTSIDE RECORDS SUMMARY | 2019-07-05 16:33 | XMS REPORT ---
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 Chronic Chronic Diagnosis Active Blade systolic systolic 05-18 Michael (congestive (congestive [id number] ) heart ) heart failure failure Paroxysmal Paroxysmal Diagnosis Active Blade atrial atrial 05-18 Michael fibrillatio fibrillatio [id number] n n 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 05-18 Michael mellitus mellitus [id number] without without complicatio complicatio ns ns Diverticuli Diverticuli Diagnosis Active Blade tis of tis of 05-18 Michael intestine, intestine, [id number] part part unspecified unspecified , without , without perforation perforation or abscess or abscess without without bleeding bleeding Anemia, Anemia, Diagnosis Active Blade unspecified unspecified 05-18 Michael [id number] Benign Benign Diagnosis Active Blade prostatic prostatic Michael hyperplasia hyperplasia [id number] without without lower lower urinary urinary tract tract symptoms symptoms Lymphocytop Lymphocytop Diagnosis Active Blade enia enia Michael [id number] Encounter Encounter Diagnosis Active Blade for mary ellen Rodriguez attention attention [id number] to to colostomy 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) (current) Michael use of use of [id number] anticoagula anticoagula nts nts Personal Personal Diagnosis Active Blade history of history of Michael 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 (TIA), and (TIA), and cerebral cerebral infarction infarction without without residual residual deficits deficits Presence of Presence of Diagnosis Active Blade cardiac cardiac Michael pacemaker pacemaker [id number] Presence of Presence of Diagnosis Active Blade 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 [id number] Personal Personal Diagnosis Active Blade history of history of Michael nicotine nicotine [id number] dependence dependence Problems Problems Diagnosis Active Blade related to related to Michael living living [id number] alone alone Pain frequent Pain Mgmt Resolve 2018-052019-04-20 [place] pain d 05-21 10:55:00 [place] 10:30: [id number] 00 Cardio edema Cardiovasc Active 2018-05 [place] ular 05-21 [place] 10:30: [id number] 00 Cardio knowledge/s Cardiovasc Active 2018-05 [place] kill ular 05-21 [place] deficit: pt 10:30: [id number] 00 Respiratory dyspnea Respirator Resolve 2018-052019-05-17 [place] present y d 05-21 10:45:00 [place] 10:30: [id number] 00 Endo/Justice newly Endo/Justice Resolve 2018-052019-04-08 Lolis diagnosed d 05-21 09:45:00 [place] diabetes 10:30: [id number] 00 Endo/Justice diabetic Endo/Justice Resolve 2018-052019-04-08 [place]olis foot care d 05-21 09:45:00 [place] 10:30: [id number] 00 Endo/Justice anti-coagul Endo/Justice Resolve 2018-052019-04-08 [place]olis ation d 05-21 09:45:00 [place] therapy 10:30: [id number] 00 Sensory impaired Sensory Resolve 2018-052019-04-27 [place]olis hearing d 05-21 10:45:00 [place] 10:30: [id number] 00 Integument skin Integument Resolve 2018-052019-03-30 [place]olis integrity d 05-21 11:40:00 [place] risk 10:30: [id number] 00 Nutrition nutritional Nutrition Resolve 2018-052019-03-30 [place]olis restriction d 05-21 11:40:00 [place] s 10:30: [id number] 00 Elimination ostomy Eliminatio Resolve 2018-052019-03-30 [place] present n d 05-21 11:40:00 [place] 10:30: [id number] 00 Neuro confusion Neuro/Emot Resolve 2018-052019-05-17 [place] present ion d 05-21 10:45:00 [place] 10:30: [id number] 00 Neuro impaired Neuro/Emot Resolve 2018-052019-05-17 [place]olis decision-ma ion d 05-21 10:45:00 [place] nir 10:30: [id number] 00 Activity ADL Activity Resolve 2018-052019-05-17 [place] assistance d 05-21 10:45:00 [place] required 10:30: [id number] 00 Activity self-care Activity Resolve 2018-052019-04-27 [place] deficit d 05-21 10:45:00 [place] 10:30: [id number] 00 Safety structural Safety Resolve 2018-052019-05-05 Lolis barriers d 05-21 10:55:00 [place] present 10:30: [id number] 00 Safety fall risk Safety Resolve 2018-052019-05-05 Lolis factor d 05-21 10:55:00 [place] present 10:30: [id number] 00 Safety risk for Safety Resolve 2018-052019-05-05 Lolis hospitaliza d 05-21 10:55:00 [place] tion 10:30: [id number] 00 Safety can be left Safety Active 2018-05 [place]olis alone for 05-21 [place] only short 10:30: [id number] periods 00 Safety safety Safety Resolve 2018-052019-05-05 QUALITY hazards d 05-21 10:55:00 REALTIME present 10:30: 00 Medication oral med Meds Resolve 2018-052019-04-20 [place] assistance d 05-21 10:55:00 [place] required 10:30: [id number] 00 Medication knowledge/s Meds Resolve 2018-052019-04-20 [place] kill d 05-21 10:55:00 [place] deficit: pt 10:30: [id number] 00 Musculoskel transfer Musculoske Resolve 2018-052019-04-27 [place] etal assistance letal d 05-21 10:45:00 [place] required 10:30: [id number] 00 Musculoskel requires Musculoske Resolve 2018-052019-04-27 [place] etal human letal d 05-21 10:45:00 [place] assist to 10:30: [id number] leave home 00 Cath/Ostomy k/s Cath\Ostom Resolve 2018-052019-03-30 [place] /GI deficit: y\GI Care d 05-21 11:40:00 [place] cath/ost/GI 10:30: [id number] care - pt 00 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/End 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/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 PT/OT: Resolve 2018-052019-05-17 Jaquan urance rdination Balance/En d 05-21 10:45:00 [place] deficit durance 12:07: [id number] 00 OT: Self self-care OT: Resolve 2018-052019-05-17 Jaquan Care deficit Self-Care d 05-21 10:45:00 [place] 12:07: [id number] 00 Gait/Locomo stair PT/OT: Resolve 2018-052019-05-17 Jaquan tion management Gait/Locom d 05-21 10:45:00 [place] problems req otion 12:07: [id number] 00 Gait/[place] gait PT/OT: Resolve 2018-052019-05-17 Jaquan tion deficit Gait/Locom d 05-21 10:45:00 [place] problems otion 12:07: [id number] 00 Elimination ostomy Eliminatio Resolve 2018-052019-04-20 Blade present n d 06-01 10:55:00 Michael 09:55: [id number] 00 Elimination urinary Eliminatio Resolve 2018-052019-05-17 Blade incontinenc n d 06-28 10:45:00 Michael coronel 10:45: [id number] 00 Elimination ostomy Eliminatio Resolve 2018-052019-05-17 Blade present n d - 10:45:00 Michael 10:45: [id number] 00 Safety risk for Safety Active 2018-05 Blade hospitaliza 07-11 [place] tion 10:50: [id number] 00 Activity ADL Activity Unknown 2018-05 Blade assistance Rodriguez required 10:45: [id number] 00 Safety fall risk Safety Active 2018-05 Blade factor Rodriguez present 10:45: [id number] 00 Sensory impaired Sensory Active Cher[place] hearing 06-07 [place] 11:30: [id number] 00 Elimination urinary Eliminatio Resolve 2019-06-21 [place] incontinenc n d 06-07 10:55:00 [place] e 11:30: [id number] 00 Elimination urinary Eliminatio Resolve 2019-06-21 Cherrise urgency n d 06-07 10:55:00 [place] 11:30: [id number] 00 Elimination ostomy Eliminatio Active Cherrise present n 06-07 [place] 11:30: [id number] 00 Neuro impaired Neuro/Emot Active Cherrise decision-ma ion 06-07 [place] nir 11:30: [id number] 00 Safety structural Safety Active [place]rise barriers 06-07 [place] present 11:30: [id number] 00 Safety sanitation Safety Active Cherrise hazards 06-07 [place] present 11:30: [id number] 00 Musculoskel requires Musculoske Active Cherrise etal human letal 06-07 [place] assist to 11:30: [id number] leave home 00 Allergies, Adverse Reactions, Alerts Allergy Allergy Status Severity Reaction(s) Onset Inactive Treating Comments Name Type Date Date Clinician Unknown None Active Unknown None Unknown No Known Allergies For This Patient Medications Ordered Filled Start Stop Current Ordering Indication Dosage Frequency Signature Comments Components Medication Medication Date Date Medication? Clinician (SIG) Name Name Eliquis 2.5 Eliquis 2.5 2018-05 No [place] Unknown Unknown mg tablet mg tablet 05-21 Fatimah STRONG metoprolol metoprolol 2018-05 No [place] Unknown Unknown tartrate tartrate 05-21 Fatimah STRONG 100 mg 100 mg tablet tablet Cardizem CD Cardizem CD 2018-05 No [place] Unknown Unknown 120 mg 120 mg 05-21 Fatimah STRONG capsule,ext capsule,ext ended ended release release multivitami multivitami 2018-05 No [place] Unknown Unknown n with n with 05-21 Fatimah STRONG minerals minerals tablet tablet Co Q-10 150 Co Q-10 150 2018-05 No [place] Unknown Unknown mg capsule mg capsule 05-21 Fatimah STRONG niacin ER niacin ER 2018-05 No [place] Unknown Unknown 250 mg 250 mg - Fatimah STRONG tablet,exte tablet,exte nded nded release release iron 27mg iron 27mg 2018-05 No [place] Unknown Unknown - Fatimah STRONG pravastatin pravastatin 2018-05 No [place] Unknown Unknown 40 mg 40 mg 06-01 [...]
--- OUTSIDE RECORDS SUMMARY | 2019-07-05 16:33 | XMS REPORT ---
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 05-18 Michael (congestive (congestive [id number] ) heart ) heart failure failure Paroxysmal Paroxysmal Diagnosis Active Blade atrial atrial 05-18 Michael fibrillatio fibrillatio [id number] n n 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 05-18 Michael mellitus mellitus [id number] without without complicatio complicatio ns ns Diverticuli Diverticuli Diagnosis Active Blade tis of tis of 05-18 Michael intestine, intestine, [id number] part part unspecified unspecified , without , without perforation perforation or abscess or abscess without without bleeding bleeding Anemia, Anemia, Diagnosis Active Blade unspecified unspecified 05-18 Michael [id number] Benign Benign Diagnosis Active Blade prostatic prostatic Michael hyperplasia hyperplasia [id number] without without lower lower urinary urinary tract tract symptoms symptoms Lymphocytop Lymphocytop Diagnosis Active Blade enia enia Michael [id number] Encounter Encounter Diagnosis Active Blade for mary ellen Rodriguez attention attention [id number] 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 Active Blade (current) (current) Michael use of use of [id number] anticoagula anticoagula nts nts Personal Personal Diagnosis Active Blade history of history of Michael transient transient [id number] ischemic ischemic attack attack (TIA), and (TIA), and cerebral cerebral infarction infarction without without residual residual deficits deficits Presence of Presence of Diagnosis Active Blade cardiac cardiac Michael pacemaker pacemaker [id number] Presence of Presence of Diagnosis Active Blade 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 [id number] Personal Personal Diagnosis Active Blade history of history of Michael nicotine nicotine [id number] dependence dependence Problems Problems Diagnosis Active Blade related to related to Michael living living [id number] alone alone Pain frequent Pain Mgmt Resolve 2018-052019-04-20 [place] pain d 05-21 10:55:00 [place] 10:30: [id number] 00 Cardio edema Cardiovasc Active 2018-05 [place] ular 05-21 [place] 10:30: [id number] 00 Cardio knowledge/s Cardiovasc Active 2018-05 [place] kill ular 05-21 [place] deficit: pt 10:30: [id number] 00 Respiratory dyspnea Respirator Resolve 2018-052019-05-17 [place] present y d 05-21 10:45:00 [place] 10:30: [id number] 00 Endo/Justice newly Endo/Justice Resolve 2018-052019-04-08 [place] diagnosed d 05-21 09:45:00 [place] diabetes 10:30: [id number] 00 Endo/Justice diabetic Endo/Justice Resolve 2018-052019-04-08 [place] foot care d 05-21 09:45:00 [place] 10:30: [id number] 00 Endo/Justice anti-coagul Endo/Justice Resolve 2018-052019-04-08 [place] ation d 05-21 09:45:00 [place] therapy 10:30: [id number] 00 Sensory impaired Sensory Resolve 2018-052019-04-27 [place] hearing d 05-21 10:45:00 [place] 10:30: [id number] 00 Integument skin Integument Resolve 2018-052019-03-30 [place]olis integrity d 05-21 11:40:00 [place] risk 10:30: [id number] 00 Nutrition nutritional Nutrition Resolve 2018-052019-03-30 [place] restriction d 05-21 11:40:00 [place] s 10:30: [id number] 00 Elimination ostomy Eliminatio Resolve 2018-052019-03-30 [place] present n d 05-21 11:40:00 [place] 10:30: [id number] 00 Neuro confusion Neuro/Emot Resolve 2018-052019-05-17 [place]olis present ion d 05-21 10:45:00 [place] 10:30: [id number] 00 Neuro impaired Neuro/Emot Resolve 2018-052019-05-17 [place] decision-ma ion d 05-21 10:45:00 [place] nir 10:30: [id number] 00 Activity ADL Activity Resolve 2018-052019-05-17 [place] assistance d 05-21 10:45:00 [place] required 10:30: [id number] 00 Activity self-care Activity Resolve 2018-052019-04-27 [place] deficit d 05-21 10:45:00 [place] 10:30: [id number] 00 Safety structural Safety Resolve 2018-052019-05-05 [place]olis barriers d 05-21 10:55:00 [place] present 10:30: [id number] 00 Safety fall risk Safety Resolve 2018-052019-05-05 [place]olis factor d 05-21 10:55:00 [place] present 10:30: [id number] 00 Safety risk for Safety Resolve 2018-052019-05-05 Lolis hospitaliza d 05-21 10:55:00 [place] tion 10:30: [id number] 00 Safety can be left Safety Active 2018-05 [place] alone for 05-21 [place] only short 10:30: [id number] periods 00 Safety safety Safety Resolve 2018-052019-05-05 QUALITY hazards d 05-21 10:55:00 REALTIME present 10:30: 00 Medication oral med Meds Resolve 2018-052019-04-20 [place] assistance d 05-21 10:55:00 [place] required 10:30: [id number] 00 Medication knowledge/s Meds Resolve 2018-052019-04-20 [place] kill d 05-21 10:55:00 [place] deficit: pt 10:30: [id number] 00 Musculoskel transfer Musculoske Resolve 2018-052019-04-27 [place] etal assistance letal d 05-21 10:45:00 [place] required 10:30: [id number] 00 Musculoskel requires Musculoske Resolve 2018-052019-04-27 [place] etal human letal d 05-21 10:45:00 [place] assist to 10:30: [id number] leave home 00 Cath/Ostomy k/s Cath\Ostom Resolve 2018-052019-03-30 [place] /GI deficit: y\GI Care d 05-21 11:40:00 [place] cath/ost/GI 10:30: [id number] care - pt 00 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/OT: Resolve 2018-052019-05-17 Jaquan onealance rdination Balance/En d 05-21 10:45:00 [place] deficit durance 12:07: [id number] 00 OT: Self self-care OT: Resolve 2018-052019-05-17 Jaquan Care deficit Self-Care d 05-21 10:45:00 [place] 12:07: [id number] 00 Gait/Locomo stair PT/OT: Resolve 2018-052019-05-17 Jaquan tion management Gait/Locom d 05-21 10:45:00 [place] problems req otion 12:07: [id number] 00 Gait/[place] gait PT/OT: Resolve 2018-052019-05-17 Jaquan tion deficit Gait/Locom d 05-21 10:45:00 [place] problems otion 12:07: [id number] 00 Elimination ostomy Eliminatio Resolve 2018-052019-04-20 Blade present n d 1-15 10:55:00 Michael 09:55: [id number] 00 Elimination urinary Eliminatio Resolve 2018-052019-05-17 Blade incontinenc n d 2-11 10:45:00 Michael coronel 10:45: [id number] 00 Elimination ostomy Eliminatio Resolve 2018-052019-05-17 Blade present n d 2-11 10:45:00 Michael 10:45: [id number] 00 Safety risk for Safety Active 2018-05 Blade hospitaliza 07-11 Michael tion 10:50: [id number] 00 Activity ADL Activity Unknown 2018-05 Blade assistance Rodriguez required 10:45: [id number] 00 Safety fall risk Safety Active 2018-05 Blade factor Rodriguez present 10:45: [id number] 00 Allergies, Adverse Reactions, Alerts Allergy Allergy Status Severity Reaction(s) Onset Inactive Treating Comments Name Type Date Date Clinician Unknown None Active Unknown None Unknown No Known Allergies For This Patient Medications Ordered Filled Start Stop Current Ordering Indication Dosage Frequency Signature Comments Components Medication Medication Date Date Medication? Clinician (SIG) Name Name Eliquis 2.5 Eliquis 2.5 2018-05 Yes [place] Unknown Unknown mg tablet mg tablet 05-21 Fatimah STRONG metoprolol metoprolol 2018-05 Yes [place] Unknown Unknown tartrate tartrate 1-04 Fatimah STRONG 100 mg 100 mg tablet tablet Cardizem CD Cardizem CD 2018-05 Yes [place] Unknown Unknown 120 mg 120 mg 1-04 Fatimah STRONG capsule,ext capsule,ext ended ended release release multivitami multivitami 2018-05 Yes [place] Unknown Unknown n with n with - Fatimah STRONG minerals minerals tablet tablet Co Q-10 150 Co Q-10 150 2018-05 Yes [place] Unknown Unknown mg capsule mg capsule -04 Fatimah STRONG niacin ER niacin ER 2018-05 Yes [place] Unknown Unknown 250 mg 250 mg -04 Fatimah STRONG tablet,exte tablet,exte nded nded release release iron 27mg iron 27mg 2018-05 Yes [place] Unknown Unknown 1-04 Fatimah STRONG pravastatin pravastatin 2018-05 Yes [place] Unknown Unknown 40 mg 40 mg - [...]
--- OUTSIDE RECORDS SUMMARY | 2019-07-05 16:33 | XMS REPORT ---
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 Chronic Chronic Diagnosis Active Blade systolic systolic 05-18 Michael (congestive (congestive [id number] ) heart ) heart failure failure Paroxysmal Paroxysmal Diagnosis Active Blade atrial atrial 05-18 Michael fibrillatio fibrillatio [id number] n n 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 05-18 Michael mellitus mellitus [id number] without without complicatio complicatio ns ns Diverticuli Diverticuli Diagnosis Active Blade tis of tis of 05-18 Michael intestine, intestine, [id number] part part unspecified unspecified , without , without perforation perforation or abscess or abscess without without bleeding bleeding Anemia, Anemia, Diagnosis Active Blade unspecified unspecified 05-18 Michael [id number] Benign Benign Diagnosis Active Blade prostatic prostatic Michael hyperplasia hyperplasia [id number] without without lower lower urinary urinary tract tract symptoms symptoms Lymphocytop Lymphocytop Diagnosis Active Blade enia enia Michael [id number] Encounter Encounter Diagnosis Active Blade for mary ellen Rodriguez attention attention [id number] to to colostomy 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) (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) Michael use of use of [id number] anticoagula anticoagula nts nts Personal Personal Diagnosis Active Blade history of history of Michael transient transient [id number] ischemic ischemic attack attack (TIA), and (TIA), and cerebral cerebral infarction infarction without without residual residual deficits deficits Presence of Presence of Diagnosis Active Blade cardiac cardiac Michael pacemaker pacemaker [id number] Presence of Presence of Diagnosis Active Blade 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 [id number] Personal Personal Diagnosis Active Blade history of history of Michael nicotine nicotine [id number] dependence dependence Problems Problems Diagnosis Active Blade related to related to Michael living living [id number] alone alone Pain frequent Pain Mgmt Resolve 2018-052019-04-20 Lolis pain d 05-21 10:55:00 Nash 10:30: [id number] 00 Cardio edema Cardiovasc Active 2018-05 Lolis ular 05-21 Nash 10:30: [id number] 00 Cardio knowledge/s Cardiovasc Active 2018-05 Lolis kill ular 05-21 Nash deficit: pt 10:30: [id number] 00 Respiratory dyspnea Respirator Resolve 2018-052019-05-17 Lolis present y d 05-21 10:45:00 Nash 10:30: [id number] 00 Endo/Justice newly Endo/Justice Resolve 2018-052019-04-08 Lolis diagnosed d 05-21 09:45:00 Nash diabetes 10:30: [id number] 00 Endo/Justice diabetic Endo/Justice Resolve 2018-052019-04-08 Lolis foot care d 05-21 09:45:00 Nash 10:30: [id number] 00 Endo/Justice anti-coagul Endo/Justice Resolve 2018-052019-04-08 Lolis ation d 05-21 09:45:00 Nash therapy 10:30: [id number] 00 Sensory impaired Sensory Resolve 2018-052019-04-27 Lolis hearing d 05-21 10:45:00 Nash 10:30: [id number] 00 Integument skin Integument Resolve 2018-052019-03-30 Lolis integrity d 05-21 11:40:00 Nash risk 10:30: [id number] 00 Nutrition nutritional Nutrition Resolve 2018-052019-03-30 Lolis restriction d 05-21 11:40:00 Nash s 10:30: [id number] 00 Elimination ostomy Eliminatio Resolve 2018-052019-03-30 Lolis present n d 05-21 11:40:00 Nash 10:30: [id number] 00 Neuro confusion Neuro/Emot Resolve 2018-052019-05-17 Lolis present ion d 05-21 10:45:00 Nash 10:30: [id number] 00 Neuro impaired Neuro/Emot Resolve 2018-052019-05-17 Lolis decision-ma ion d 05-21 10:45:00 Nash nir 10:30: [id number] 00 Activity ADL Activity Resolve 2018-052019-05-17 Lolis assistance d 05-21 10:45:00 Foreign required 10:30: [id number] 00 Activity self-care Activity Resolve 2018-052019-04-27 Lolis deficit d 05-21 10:45:00 Foreign 10:30: [id number] 00 Safety structural Safety Resolve 2018-052019-05-05 Lolis barriers d 05-21 10:55:00 Foreign present 10:30: [id number] 00 Safety fall risk Safety Resolve 2018-052019-05-05 Lolis factor d 05-21 10:55:00 Nash present 10:30: [id number] 00 Safety risk for Safety Resolve 2018-052019-05-05 Lolis hospitaliza d 05-21 10:55:00 Nash tion 10:30: [id number] 00 Safety can be left Safety Active 2018-05 Lolis alone for 05-21 Nash only short 10:30: [id number] 00 Safety safety Safety Resolve 2018-052019-05-05 QUALITY hazards d 05-21 10:55:00 REALTIME present 10:30: 00 Medication oral med Meds Resolve 2018-052019-04-20 Lolis assistance d 05-21 10:55:00 Nash required 10:30: [id number] 00 Medication knowledge/s Meds Resolve 2018-052019-04-20 Lolis kill d 05-21 10:55:00 Nash deficit: pt 10:30: [id number] 00 Musculoskel transfer Musculoske Resolve 2018-052019-04-27 Lolis etal assistance letal d 05-21 10:45:00 Nash required 10:30: [id number] 00 Musculoskel requires Musculoske Resolve 2018-052019-04-27 Lolis etal human letal d 05-21 10:45:00 Nash assist to 10:30: [id number] leave home 00 Cath/Ostomy k/s Cath\Ostom Resolve 2018-052019-03-30 Lolis /GI deficit: y\GI Care d 05-21 11:40:00 Nash cath/ost/GI 10:30: [id number] care - pt 00 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 PT/OT: Resolve 2018-052019-05-17 Jaquan urance rdination Balance/En d 05-21 10:45:00 [place] deficit durance 12:07: [id number] 00 OT: Self self-care OT: Resolve 2018-052019-05-17 Jaquan Care deficit Self-Care d 05-21 10:45:00 [place] 12:07: [id number] 00 Gait/Locomo stair PT/OT: Resolve 2018-052019-05-17 Jaquan tion management Gait/Locom d 05-21 10:45:00 Kobziewicz problems req otion 12:07: [id number] 00 Gait/Locomo gait PT/OT: Resolve 2018-052019-05-17 Jaquan tion deficit Gait/Locom d 05-21 10:45:00 Kobziewicz problems otion 12:07: [id number] 00 Elimination ostomy Eliminatio Resolve 2018-052019-04-20 Blade present n d 06-01 10:55:00 Michael 09:55: [id number] 00 Elimination urinary Eliminatio Resolve 2018-052019-05-17 Blade incontinenc n d 06-28 10:45:00 Michael coronel 10:45: [id number] 00 Elimination ostomy Eliminatio Resolve 2018-052019-05-17 Blade present n d - 10:45:00 Michael 10:45: [id number] 00 Safety risk for Safety Active 2018-05 Blade hospitaliza 07-11 Rodriguez tion 10:50: [id number] 00 Activity ADL Activity Unknown 2018-05 Blade assistance Rodriguez required 10:45: [id number] 00 Safety fall risk Safety Active 2018-05 Blade factor Rodriguez present 10:45: [id number] 00 Sensory impaired Sensory Active Cherrise hearing 06-07 Noris 11:30: [id number] 00 Elimination urinary Eliminatio Resolve 2019-06-21 Cherrise incontinenc n d 06-07 10:55:00 Noris e 11:30: [id number] 00 Elimination urinary Eliminatio Resolve 2019-06-21 Cherrise urgency n d 06-07 10:55:00 Noris 11:30: [id number] 00 Elimination ostomy Eliminatio Active Cherrise present n 06-07 [place] 11:30: [id number] 00 Neuro impaired Neuro/Emot Active Cherrise decision-ma ion 06-07 [place] nir 11:30: [id number] 00 Safety structural Safety Active Cherrise barriers 06-07 [place] present 11:30: [id number] 00 Safety sanitation Safety Active Cherrise hazards 06-07 [place] present 11:30: [id number] 00 Musculoskel requires Musculoske Active Cherrise etal human letal 06-07 [place] assist to 11:30: [id number] leave home 00 Allergies, Adverse Reactions, Alerts Allergy Allergy Status Severity Reaction(s) Onset Inactive Treating Comments Name Type Date Date Clinician Unknown None Active Unknown None Unknown No Known Allergies For This Patient Medications Ordered Filled Start Stop Current Ordering Indication Dosage Frequency Signature Comments Components Medication Medication Date Date Medication? Clinician (SIG) Name Name Eliquis 2.5 Eliquis 2.5 2018-05 No [place] Unknown Unknown mg tablet mg tablet 05-21 Fatimah STRONG metoprolol metoprolol 2018-05 No Victor Manuel Unknown Unknown tartrate tartrate 05-21 Fatimah STRONG 100 mg 100 mg tablet tablet Cardizem CD Cardizem CD 2018-05 No [place] Unknown Unknown 120 mg 120 mg - Fatimah STRONG capsule,ext capsule,ext ended ended release release multivitami multivitami 2018-05 No [place] Unknown Unknown n with n with 05-21 Fatimah STRONG minerals minerals tablet tablet Co Q-10 150 Co Q-10 150 2018-05 No [place] Unknown Unknown mg capsule mg capsule - Fatimah STRONG niacin ER niacin ER 2018-05 No [place] Unknown Unknown 250 mg 250 mg - Fatimah STRONG tablet,exte tablet,exte nded nded release release iron 27mg iron 27mg 2018-05 No [place] Unknown Unknown - Fatimah STRONG pravastatin pravastatin [...]
--- OUTSIDE RECORDS SUMMARY | 2019-07-05 16:33 | XMS REPORT ---
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 05-18 Michael (congestive (congestive [id number] ) heart ) heart failure failure Paroxysmal Paroxysmal Diagnosis Active Blade atrial atrial 05-18 Michael fibrillatio fibrillatio [id number] n n 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 05-18 Michael mellitus mellitus [id number] without without complicatio complicatio ns ns Diverticuli Diverticuli Diagnosis Active Blade tis of tis of 05-18 Michael intestine, intestine, [id number] part part unspecified unspecified , without , without perforation perforation or abscess or abscess without without bleeding bleeding Anemia, Anemia, Diagnosis Active Blade unspecified unspecified 05-18 Michael [id number] Benign Benign Diagnosis Active Blade prostatic prostatic Michael hyperplasia hyperplasia [id number] without without lower lower urinary urinary tract tract symptoms symptoms Lymphocytop Lymphocytop Diagnosis Active Blade enia enia Michael [id number] Encounter Encounter Diagnosis Active Blade for mary ellen Rodriguez attention attention [id number] 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 (current) (current) Michael use of use of [id number] anticoagula anticoagula nts nts Personal Personal Diagnosis Active Blade history of history of Michael transient transient [id number] ischemic ischemic attack attack (TIA), and (TIA), and cerebral cerebral infarction infarction without without residual residual deficits deficits Presence of Presence of Diagnosis Active Blade cardiac cardiac Michael pacemaker pacemaker [id number] Presence of Presence of Diagnosis Active Blade 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 [id number] Personal Personal Diagnosis Active Blade history of history of Michael nicotine nicotine [id number] dependence dependence Problems Problems Diagnosis Active Blade related to related to Michael living living [id number] alone alone Pain frequent Pain Mgmt Resolve 2018-052019-04-20 Lolis pain d 05-21 10:55:00 [place] 10:30: [id number] 00 Cardio edema Cardiovasc Active 2018-05 Lolis ular 05-21 [place] 10:30: [id number] 00 Cardio knowledge/s Cardiovasc Active 2018-05 Lolis kill ular 05-21 [place] deficit: pt 10:30: [id number] 00 Respiratory dyspnea Respirator Resolve 2018-052019-05-17 Lolis present y d 05-21 10:45:00 [place] 10:30: [id number] 00 Endo/Justice newly Endo/Justice Resolve 2018-052019-04-08 Lolis diagnosed d 05-21 09:45:00 [place] diabetes 10:30: [id number] 00 Endo/Justice diabetic Endo/Justice Resolve 2018-052019-04-08 Lolis foot care d 05-21 09:45:00 [place] 10:30: [id number] 00 Endo/Justice anti-coagul Endo/Justice Resolve 2018-052019-04-08 Lolis ation d 05-21 09:45:00 [place] therapy 10:30: [id number] 00 Sensory impaired Sensory Resolve 2018-052019-04-27 Lolis hearing d 05-21 10:45:00 [place] 10:30: [id number] 00 Integument skin Integument Resolve 2018-052019-03-30 Lolis integrity d 05-21 11:40:00 [place] risk 10:30: [id number] 00 Nutrition nutritional Nutrition Resolve 2018-052019-03-30 Lolis restriction d 05-21 11:40:00 [place] s 10:30: [id number] 00 Elimination ostomy Eliminatio Resolve 2018-052019-03-30 Lolis present n d 05-21 11:40:00 [place] 10:30: [id number] 00 Neuro confusion Neuro/Emot Resolve 2018-052019-05-17 Lolis present ion d 05-21 10:45:00 [place] 10:30: [id number] 00 Neuro impaired Neuro/Emot Resolve 2018-052019-05-17 Lolis decision-ma ion d 05-21 10:45:00 [place] nir 10:30: [id number] 00 Activity ADL Activity Resolve 2018-052019-05-17 Lolis assistance d 05-21 10:45:00 [place] required 10:30: [id number] 00 Activity self-care Activity Resolve 2018-052019-04-27 Lolis deficit d 05-21 10:45:00 [place] 10:30: [id number] 00 Safety structural Safety Resolve 2018-052019-05-05 Lolis barriers d 05-21 10:55:00 Foreign present 10:30: [id number] 00 Safety fall risk Safety Resolve 2018-052019-05-05 Lolis factor d 05-21 10:55:00 [place] present 10:30: [id number] 00 Safety risk for Safety Resolve 2018-052019-05-05 Lolis hospitaliza d 05-21 10:55:00 [place] tion 10:30: [id number] 00 Safety can be left Safety Active 2018-05 Lolis alone for 05-21 [place] only short 10:30: [id number] periods 00 Safety safety Safety Resolve 2018-052019-05-05 QUALITY hazards d 05-21 10:55:00 REALTIME present 10:30: 00 Medication oral med Meds Resolve 2018-052019-04-20 Lolis assistance d 05-21 10:55:00 [place] required 10:30: [id number] 00 Medication knowledge/s Meds Resolve 2018-052019-04-20 Lolis kill d 05-21 10:55:00 [place] deficit: pt 10:30: [id number] 00 Musculoskel transfer Musculoske Resolve 2018-052019-04-27 Lolis etal assistance letal d 05-21 10:45:00 [place] required 10:30: [id number] 00 Musculoskel requires Musculoske Resolve 2018-052019-04-27 Lolis etal human letal d 05-21 10:45:00 Foreign assist to 10:30: [id number] leave home 00 Cath/Ostomy k/s Cath\Ostom Resolve 2018-052019-03-30 Lolis /GI deficit: y\GI Care d 05-21 11:40:00 [place] cath/ost/GI 10:30: [id number] care - pt 00 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 PT/OT: Resolve 2018-052019-05-17 Jaquan urance rdination Balance/En d 05-21 10:45:00 [place] deficit durance 12:07: [id number] 00 OT: Self self-care OT: Resolve 2018-052019-05-17 Jaquan Care deficit Self-Care d 05-21 10:45:00 Kobziewicz 12:07: [id number] 00 Gait/Locomo stair PT/OT: Resolve 2018-052019-05-17 Jaquan tion management Gait/Locom d 05-21 10:45:00 Kobziewicz problems req otion 12:07: [id number] 00 Gait/Locomo gait PT/OT: Resolve 2018-052019-05-17 Jaquan tion deficit Gait/Locom d 05-21 10:45:00 Kobziewicz problems otion 12:07: [id number] 00 Elimination ostomy Eliminatio Resolve 2018-052019-04-20 Blade present n d 06-01 10:55:00 Michael 09:55: [id number] 00 Elimination urinary Eliminatio Resolve 2018-052019-05-17 Blade incontinenc n d 2- 10:45:00 Michael coronel 10:45: [id number] 00 Elimination ostomy Eliminatio Resolve 2018-052019-05-17 Blade present n d 2-11 10:45:00 Michael 10:45: [id number] 00 Safety risk for Safety Active 2018-05 Blade hospitaliza 07-11 Michael tion 10:50: [id number] 00 Activity ADL Activity Unknown 2018-05 Blade assistance Rodriguez required 10:45: [id number] 00 Safety fall risk Safety Active 2018-05 Blade factor Rodriguez present 10:45: [id number] 00 Sensory impaired Sensory Active 2019- Cherrise hearing 06-07 Noris 11:30: [id number] 00 Elimination urinary Eliminatio Active 2019-0 Cherrise incontinenc n 06-07 Noris e 11:30: [id number] 00 Elimination urinary Eliminatio Active Cherrise urgency n 06-07 Noris 11:30: [id number] 00 Elimination ostomy Eliminatio Active 2019-0 Cherrise present n 06-07 [place] 11:30: [id number] 00 Neuro impaired Neuro/Emot Active Cherrise decision-ma ion 06-07 [place] nir 11:30: [id number] 00 Safety structural Safety Active Cherrise barriers 06-07 [place] present 11:30: [id number] 00 Safety sanitation Safety Active Cherrise hazards 06-07 [place] present 11:30: [id number] 00 Musculoskel requires Musculoske Active Cherrise etal human letal 06-07 [place] assist to 11:30: [id number] leave home 00 Allergies, Adverse Reactions, Alerts Allergy Allergy Status Severity Reaction(s) Onset Inactive Treating Comments Name Type Date Date Clinician Unknown None Active Unknown None Unknown No Known Allergies For This Patient Medications Ordered Filled Start Stop Current Ordering Indication Dosage Frequency Signature Comments Components Medication Medication Date Date Medication? Clinician (SIG) Name Name Eliquis 2.5 Eliquis 2.5 2018-05 Yes [place] Unknown Unknown mg tablet mg tablet 1-04 Fatimah STRONG metoprolol metoprolol 2018-05 Yes [place] Unknown Unknown tartrate tartrate 1-04 Fatimah STRONG 100 mg 100 mg tablet tablet Cardizem CD Cardizem CD 2018-05 Yes [place] Unknown Unknown 120 mg 120 mg 1-04 Fatimah STRONG capsule,ext capsule,ext ended ended release release multivitami multivitami 2018-05 Yes [place] Unknown Unknown n with n with - Fatimah STRONG minerals minerals tablet tablet Co Q-10 150 Co Q-10 150 2018-05 Yes [place] Unknown Unknown mg capsule mg capsule 1-04 Fatimah STRONG niacin ER niacin ER 2018-05 Yes [place] Unknown Unknown 250 mg 250 mg 1-04 Fatimah STRONG tablet,exte tablet,exte nded nded release release iron 27mg iron 27mg 2018-05 Yes [place] Unknown Unknown 1-04 Fatimah STRONG pravastatin pravastatin 2018-05 Yes [place] Unknown Unknown 40 mg 40 mg -15 [...]
--- OUTSIDE RECORDS SUMMARY | 2019-07-05 16:34 | XMS REPORT ---
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 with heart with heart failure failure Chronic Chronic Diagnosis Active Blade systolic systolic 05-18 Michael (congestive (congestive [id number] ) heart ) heart failure failure Paroxysmal Paroxysmal Diagnosis Active Blade atrial atrial 05-18 Michael fibrillatio fibrillatio [id number] n n 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 05-18 Michael mellitus mellitus [id number] without without complicatio complicatio ns ns Diverticuli Diverticuli Diagnosis Active Blade tis of tis of 05-18 Michael intestine, intestine, [id number] part part unspecified unspecified , without , without perforation perforation or abscess or abscess without without bleeding bleeding Anemia, Anemia, Diagnosis Active Blade unspecified unspecified 05-18 Michael [id number] Benign Benign Diagnosis Active Blade prostatic prostatic Michael hyperplasia hyperplasia [id number] without without lower lower urinary urinary tract tract symptoms symptoms Lymphocytop Lymphocytop Diagnosis Active Blade enia enia Michael [id number] Encounter Encounter Diagnosis Active Blade for mary ellen Rodriguez attention attention [id number] to to colostomy colostomy [facility] Diagnosis Active Blade (current) (current) Michael use of use of [id number] anticoagula anticoagula nts nts Personal Personal Diagnosis Active Blade history of history of Michael transient transient [id number] ischemic ischemic attack attack (TIA), and (TIA), and cerebral cerebral infarction infarction without without residual residual deficits deficits Presence of Presence of Diagnosis Active Blade cardiac cardiac Michael pacemaker pacemaker [id number] Presence of Presence of Diagnosis Active Blade 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 [id number] Personal Personal Diagnosis Active Blade history of history of Michael nicotine nicotine [id number] dependence dependence Problems Problems Diagnosis Active Blade related to related to Michael living living [id number] alone alone Pain frequent Pain Mgmt Resolve 2018-052019-04-20 [place]olis pain d 05-21 10:55:00 [place] 10:30: [id number] 00 Cardio edema Cardiovasc Active 2018-05 [place] ular 05-21 [place] 10:30: [id number] 00 Cardio knowledge/s Cardiovasc Active 2018-05 Lolis kill ular 05-21 [place] deficit: pt 10:30: [id number] 00 Respiratory dyspnea Respirator Resolve 2018-052019-05-17 [place]olis present y d 05-21 10:45:00 [place] 10:30: [id number] 00 Endo/Justice newly Endo/Justice Resolve 2018-052019-04-08 Lolis diagnosed d 05-21 09:45:00 [place] diabetes 10:30: [id number] 00 Endo/Justice diabetic Endo/Justice Resolve 2018-052019-04-08 Lolis foot care d 05-21 09:45:00 [place] 10:30: [id number] 00 Endo/Justice anti-coagul Endo/Justice Resolve 2018-052019-04-08 Lolis ation d 05-21 09:45:00 [place] therapy 10:30: [id number] 00 Sensory impaired Sensory Resolve 2018-052019-04-27 Lolis hearing d 05-21 10:45:00 [place] 10:30: [id number] 00 Integument skin Integument Resolve 2018-052019-03-30 Lolis integrity d 05-21 11:40:00 [place] risk 10:30: [id number] 00 Nutrition nutritional Nutrition Resolve 2018-052019-03-30 Lolis restriction d 05-21 11:40:00 [place] s 10:30: [id number] 00 Elimination ostomy Eliminatio Resolve 2018-052019-03-30 Lolis present n d 05-21 11:40:00 [place] 10:30: [id number] 00 Neuro confusion Neuro/Emot Resolve 2018-052019-05-17 Lolis present ion d 05-21 10:45:00 [place] 10:30: [id number] 00 Neuro impaired Neuro/Emot Resolve 2018-052019-05-17 Lolis decision-ma ion d 05-21 10:45:00 [place] nir 10:30: [id number] 00 Activity ADL Activity Resolve 2018-052019-05-17 [place]olis assistance d 05-21 10:45:00 [place] required 10:30: [id number] 00 Activity self-care Activity Resolve 2018-052019-04-27 Lolis deficit d 05-21 10:45:00 [place] 10:30: [id number] 00 Safety structural Safety Resolve 2018-052019-05-05 Lolis barriers d 05-21 10:55:00 [place] present 10:30: [id number] 00 Safety fall risk Safety Resolve 2018-052019-05-05 Lolis factor d 05-21 10:55:00 [place] present 10:30: [id number] 00 Safety risk for Safety Resolve 2018-052019-05-05 Lolis hospitaliza d 05-21 10:55:00 [place] tion 10:30: [id number] 00 Safety can be left Safety Active 2018-05 Lolis alone for 05-21 [place] only short 10:30: [id number] 00 Safety safety Safety Resolve 2018-052019-05-05 QUALITY hazards d 05-21 10:55:00 REALTIME present 10:30: 00 Medication oral med Meds Resolve 2018-052019-04-20 [place]olis assistance d 05-21 10:55:00 [place] required 10:30: [id number] 00 Medication knowledge/s Meds Resolve 2018-052019-04-20 Lolis kill d 05-21 10:55:00 [place] deficit: pt 10:30: [id number] 00 Musculoskel transfer Musculoske Resolve 2018-052019-04-27 Lolis etal assistance letal d 05-21 10:45:00 Foreign required 10:30: [id number] 00 Musculoskel requires Musculoske Resolve 2018-052019-04-27 Lolis etal human letal d 05-21 10:45:00 Foreign assist to 10:30: [id number] leave home 00 Cath/Ostomy k/s Cath\Ostom Resolve 2018-052019-03-30 [place]olis /GI deficit: y\GI Care d 05-21 11:40:00 [place] cath/ost/GI 10:30: [id number] care - pt 00 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 PT/OT: Resolve 2018-052019-05-17 Jaquan onealance rdination Balance/En d 05-21 10:45:00 Kobz[place] deficit durance 12:07: [id number] 00 OT: Self self-care OT: Resolve 2018-052019-05-17 Jaquan Care deficit Self-Care d 05-21 10:45:00 [place] 12:07: [id number] 00 Gait/Locomo stair PT/OT: Resolve 2018-052019-05-17 Jaquan tion management Gait/Locom d 05-21 10:45:00 Kobziewicz problems req otion 12:07: [id number] 00 Gait/[place]ocomo gait PT/OT: Resolve 2018-052019-05-17 Jaquan tion deficit Gait/Locom d 05-21 10:45:00 Kobziewicz problems otion 12:07: [id number] 00 Elimination ostomy Eliminatio Resolve 2018-052019-04-20 Blade present n d 1-15 10:55:00 Michael 09:55: [id number] 00 Elimination urinary Eliminatio Resolve 2018-052019-05-17 Blade incontinenc n d 2-11 10:45:00 Michael coronel 10:45: [id number] 00 Elimination ostomy Eliminatio Resolve 2018-052019-05-17 Blade present n d 2-11 10:45:00 Michael 10:45: [id number] 00 Safety risk for Safety Active 2018-05 Blade hospitaliza 07-11 Michael tion 10:50: [id number] 00 Activity ADL Activity Unknown 2018-05 Blade assistance Rodriguez required 10:45: [id number] 00 Safety fall risk Safety Active 2018-05 Blade factor Rodriguez present 10:45: [id number] 00 Allergies, Adverse Reactions, Alerts Allergy Allergy Status Severity Reaction(s) Onset Inactive Treating Comments Name Type Date Date Clinician Unknown None Active Unknown None Unknown No Known Allergies For This Patient Medications Ordered Filled Start Stop Current Ordering Indication Dosage Frequency Signature Comments Components Medication Medication Date Date Medication? Clinician (SIG) Name Name Eliquis 2.5 Eliquis 2.5 2018-05 Yes [place] Unknown Unknown mg tablet mg tablet 05-21 Fatimah STRONG metoprolol metoprolol 2018-05 Yes [place] Unknown Unknown tartrate tartrate 1-04 Fatimah STRONG 100 mg 100 mg tablet tablet Cardizem CD Cardizem CD 2018-05 Yes [place] Unknown Unknown 120 mg 120 mg 1-04 Fatimah STRONG capsule,ext capsule,ext ended ended release release multivitami multivitami 2018-05 Yes [place] Unknown Unknown n with n with - Fatimah STRONG minerals minerals tablet tablet Co Q-10 150 Co Q-10 150 2018-05 Yes [place] Unknown Unknown mg capsule mg capsule 1-04 Fatimah STRONG niacin ER niacin ER 2018-05 Yes [place] Unknown Unknown 250 mg 250 mg -04 Fatimah STRONG tablet,exte tablet,exte nded nded release release iron 27mg iron 27mg 2018-05 Yes [place] Unknown Unknown 1-04 Fatimah STRONG pravastatin pravastatin 2018-05 Yes [place] Unknown Unknown 40 mg 40 mg -15 Fatimah STRONG tablet tablet Vital Signs Vital Name Observation Time Observation Value Comments SYSTOLIC mm[Hg] 2019-05-17 18:09:38 136 mm[Hg] mm[Hg] Method: Sit SYSTOLIC mm[Hg] 2019-03-21 18:08:41 128 mm[Hg] mm[Hg] Method: Stand DIASTOLIC mm[Hg] 2019-05-17 18:09:38 80 mm[Hg] mm[Hg] Method: Sit DIASTOLIC mm[Hg] 2019-03-21 18:08:41 70 mm[Hg] mm[Hg] Method: Stand PULSE 2019-05-17 18:09:38 72 /min /min RESP RATE 2019-05-17 18:09:38 16 /min /min TEMP 2019-05-17 18:09:38 97.8 [degF] Procedures This patient has no known procedures. Results This patient has no known results.
--- OUTSIDE RECORDS SUMMARY | 2019-07-05 16:34 | XMS REPORT ---
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 05-18 Michael (congestive (congestive [id number] ) heart ) heart failure failure Paroxysmal Paroxysmal Diagnosis Active Blade atrial atrial 05-18 Michael fibrillatio fibrillatio [id number] n n 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 05-18 Michael mellitus mellitus [id number] without without complicatio complicatio ns ns Diverticuli Diverticuli Diagnosis Active Blade tis of tis of 05-18 Michael intestine, intestine, [id number] part part unspecified unspecified , without , without perforation perforation or abscess or abscess without without bleeding bleeding Anemia, Anemia, Diagnosis Active Blade unspecified unspecified 05-18 Michael [id number] Benign Benign Diagnosis Active Blade prostatic prostatic Michael hyperplasia hyperplasia [id number] without without lower lower urinary urinary tract tract symptoms symptoms Lymphocytop Lymphocytop Diagnosis Active Blade enia enia Michael [id number] Encounter Encounter Diagnosis Active Blade for mary ellen Rodriguez attention attention [id number] to to colostomy colostomy half-way half-way Diagnosis Active Blade (current) (current) Michael use of use of [id number] anticoagula anticoagula nts nts Personal Personal Diagnosis Active Blade history of history of Michael transient transient [id number] ischemic ischemic attack attack (TIA), and (TIA), and cerebral cerebral infarction infarction without without residual residual deficits deficits Presence of Presence of Diagnosis Active Blade cardiac cardiac Michael pacemaker pacemaker [id number] Presence of Presence of Diagnosis Active Blade 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 [id number] Personal Personal Diagnosis Active Blade history of history of Michael nicotine nicotine [id number] dependence dependence Problems Problems Diagnosis Active Blade related to related to Michael living living [id number] alone alone Pain frequent Pain Mgmt Resolve 2018-052019-04-20 [place]olis pain d 05-21 10:55:00 [place] 10:30: [id number] 00 Cardio edema Cardiovasc Active 2018-05 [place] ular 05-21 [place] 10:30: [id number] 00 Cardio knowledge/s Cardiovasc Active 2018-05 [place]olis kill ular 05-21 [place] deficit: pt 10:30: [id number] 00 Respiratory dyspnea Respirator Resolve 2018-052019-05-17 [place]olis present y d 05-21 10:45:00 [place] 10:30: [id number] 00 Endo/Justice newly Endo/Justice Resolve 2018-052019-04-08 Lolis diagnosed d 05-21 09:45:00 [place] diabetes 10:30: [id number] 00 Endo/Justice diabetic Endo/Justice Resolve 2018-052019-04-08 Lolis foot care d 05-21 09:45:00 [place] 10:30: [id number] 00 Endo/Justice anti-coagul Endo/Justice Resolve 2018-052019-04-08 Lolis ation d 05-21 09:45:00 [place] therapy 10:30: [id number] 00 Sensory impaired Sensory Resolve 2018-052019-04-27 [place] hearing d 05-21 10:45:00 [place] 10:30: [id number] 00 Integument skin Integument Resolve 2018-052019-03-30 Lolis integrity d 05-21 11:40:00 [place] risk 10:30: [id number] 00 Nutrition nutritional Nutrition Resolve 2018-052019-03-30 [place]olis restriction d 05-21 11:40:00 [place] s 10:30: [id number] 00 Elimination ostomy Eliminatio Resolve 2018-052019-03-30 [place]olis present n d 05-21 11:40:00 [place] 10:30: [id number] 00 Neuro confusion Neuro/Emot Resolve 2018-052019-05-17 Lolis present ion d 05-21 10:45:00 [place] 10:30: [id number] 00 Neuro impaired Neuro/Emot Resolve 2018-052019-05-17 [place]olis decision-ma ion d 05-21 10:45:00 [place] nir 10:30: [id number] 00 Activity ADL Activity Resolve 2018-052019-05-17 [place] assistance d 05-21 10:45:00 [place] required 10:30: [id number] 00 Activity self-care Activity Resolve 2018-052019-04-27 [place]olis deficit d 05-21 10:45:00 [place] 10:30: [id number] 00 Safety structural Safety Resolve 2018-052019-05-05 Lolis barriers d 05-21 10:55:00 [place] present 10:30: [id number] 00 Safety fall risk Safety Resolve 2018-052019-05-05 Lolis factor d 05-21 10:55:00 [place] present 10:30: [id number] 00 Safety risk for Safety Resolve 2018-052019-05-05 Lolis hospitaliza d 05-21 10:55:00 [place] tion 10:30: [id number] 00 Safety can be left Safety Active 2018-05 Lolis alone for 05-21 [place] only short 10:30: [id number] periods 00 Safety safety Safety Resolve 2018-052019-05-05 QUALITY hazards d 05-21 10:55:00 REALTIME present 10:30: 00 Medication oral med Meds Resolve 2018-052019-04-20 [place] assistance d 05-21 10:55:00 [place] required 10:30: [id number] 00 Medication knowledge/s Meds Resolve 2018-052019-04-20 [place] kill d 05-21 10:55:00 [place] deficit: pt 10:30: [id number] 00 Musculoskel transfer Musculoske Resolve 2018-052019-04-27 [place] etal assistance letal d 05-21 10:45:00 Foreign required 10:30: [id number] 00 Musculoskel requires Musculoske Resolve 2018-052019-04-27 [place] etal human letal d 05-21 10:45:00 Foreign assist to 10:30: [id number] leave home 00 Cath/Ostomy k/s Cath\Ostom Resolve 2018-052019-03-30 [place] /GI deficit: y\GI Care d 05-21 11:40:00 [place] cath/ost/GI 10:30: [id number] care - pt 00 Balance/End balance/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 pre 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 PT/OT: Resolve 2018-052019-05-17 Jaquan onealance rdination Balance/En d 05-21 10:45:00 Kobziewicz deficit durance 12:07: [id number] 00 OT: Self self-care OT: Resolve 2018-052019-05-17 Jaquan Care deficit Self-Care d 05-21 10:45:00 [place] 12:07: [id number] 00 Gait/Locomo stair PT/OT: Resolve 2018-052019-05-17 Jaquan tion management Gait/Locom d 05-21 10:45:00 Kobziewicz problems req otion 12:07: [id number] 00 Gait/[place]ocomo gait PT/OT: Resolve 2018-052019-05-17 Jaquan tion deficit Gait/Locom d 05-21 10:45:00 Kobziewicz problems otion 12:07: [id number] 00 Elimination ostomy Eliminatio Resolve 2018-052019-04-20 Blade present n d 1-15 10:55:00 Michael 09:55: [id number] 00 Elimination urinary Eliminatio Resolve 2018-052019-05-17 Blade incontinenc n d 2-11 10:45:00 Michael coronel 10:45: [id number] 00 Elimination ostomy Eliminatio Resolve 2018-052019-05-17 Blade present n d 2-11 10:45:00 Michael 10:45: [id number] 00 Safety risk for Safety Active 2018-05 Blade hospitaliza 07-11 Michael tion 10:50: [id number] 00 Activity ADL Activity Unknown 2018-05 Blade assistance Rodriguez required 10:45: [id number] 00 Safety fall risk Safety Active 2018-05 Blade factor Rodriguez present 10:45: [id number] 00 Allergies, Adverse Reactions, Alerts Allergy Allergy Status Severity Reaction(s) Onset Inactive Treating Comments Name Type Date Date Clinician Unknown None Active Unknown None Unknown No Known Allergies For This Patient Medications Ordered Filled Start Stop Current Ordering Indication Dosage Frequency Signature Comments Components Medication Medication Date Date Medication? Clinician (SIG) Name Name Eliquis 2.5 Eliquis 2.5 2018-05 Yes [place] Unknown Unknown mg tablet mg tablet 05-21 Fatimah STRONG metoprolol metoprolol 2018-05 Yes [place] Unknown Unknown tartrate tartrate 1-04 Fatimah STRONG 100 mg 100 mg tablet tablet Cardizem CD Cardizem CD 2018-05 Yes [place] Unknown Unknown 120 mg 120 mg 1-04 Fatimah STRONG capsule,ext capsule,ext ended ended release release multivitami multivitami 2018-05 Yes [place] Unknown Unknown n with n with - Fatimah STRONG minerals minerals tablet tablet Co Q-10 150 Co Q-10 150 2018-05 Yes [place] Unknown Unknown mg capsule mg capsule -04 Fatimah STRONG niacin ER niacin ER 2018-05 Yes [place] Unknown Unknown 250 mg 250 mg -04 Fatimah STRONG tablet,exte tablet,exte nded nded release release iron 27mg iron 27mg 2018-05 Yes [place] Unknown Unknown 1-04 Fatimah STRONG pravastatin pravastatin 2018-05 Yes [place] Unknown Unknown 40 mg 40 mg - [...]
--- OUTSIDE RECORDS SUMMARY | 2019-07-05 16:34 | XMS REPORT ---
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 Chronic Chronic Diagnosis Active Blade systolic systolic 05-18 Michael (congestive (congestive [id number] ) heart ) heart failure failure Paroxysmal Paroxysmal Diagnosis Active Blade atrial atrial 05-18 Michael fibrillatio fibrillatio [id number] n n 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 05-18 Michael mellitus mellitus [id number] without without complicatio complicatio ns ns Diverticuli Diverticuli Diagnosis Active Blade tis of tis of 05-18 Michael intestine, intestine, [id number] part part unspecified unspecified , without , without perforation perforation or abscess or abscess without without bleeding bleeding Anemia, Anemia, Diagnosis Active Blade unspecified unspecified 05-18 Michael [id number] Benign Benign Diagnosis Active Blade prostatic prostatic Michael hyperplasia hyperplasia [id number] without without lower lower urinary urinary tract tract symptoms symptoms Lymphocytop Lymphocytop Diagnosis Active Blade enia enia Michael [id number] Encounter Encounter Diagnosis Active Blade for mary ellen Rodriguez attention attention [id number] to to colostomy [facility] Diagnosis Active Blade (current) (current) Michael use of use of [id number] anticoagula anticoagula nts nts Personal Personal Diagnosis Active Blade history of history of Michael transient transient [id number] ischemic ischemic attack attack (TIA), and (TIA), and cerebral cerebral infarction infarction without without residual residual deficits deficits Presence of Presence of Diagnosis Active Blade cardiac cardiac Michael pacemaker pacemaker [id number] Presence of Presence of Diagnosis Active Blade 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 [id number] Personal Personal Diagnosis Active Blade history of history of Michael nicotine nicotine [id number] dependence dependence Problems Problems Diagnosis Active Blade related to related to Michael living living [id number] alone alone Pain frequent Pain Mgmt Resolve 2018-052019-04-20 [place] pain d 05-21 10:55:00 [place] 10:30: [id number] 00 Cardio edema Cardiovasc Active 2018-05 [place] ular 05-21 [place] 10:30: [id number] 00 Cardio knowledge/s Cardiovasc Active 2018-05 [place] kill ular 05-21 [place] deficit: pt 10:30: [id number] 00 Respiratory dyspnea Respirator Resolve 2018-052019-05-17 [place] present y d 05-21 10:45:00 [place] 10:30: [id number] 00 Endo/Justice newly Endo/Justice Resolve 2018-052019-04-08 [place]olis diagnosed d 05-21 09:45:00 [place] diabetes 10:30: [id number] 00 Endo/Justice diabetic Endo/Justice Resolve 2018-052019-04-08 Lolis foot care d 05-21 09:45:00 [place] 10:30: [id number] 00 Endo/Justice anti-coagul Endo/Justice Resolve 2018-052019-04-08 [place]olis ation d 05-21 09:45:00 [place] therapy 10:30: [id number] 00 Sensory impaired Sensory Resolve 2018-052019-04-27 [place] hearing d 05-21 10:45:00 [place] 10:30: [id number] 00 Integument skin Integument Resolve 2018-052019-03-30 [place]olis integrity d 05-21 11:40:00 [place] risk 10:30: [id number] 00 Nutrition nutritional Nutrition Resolve 2018-052019-03-30 [place]olis restriction d 05-21 11:40:00 [place] s 10:30: [id number] 00 Elimination ostomy Eliminatio Resolve 2018-052019-03-30 [place] present n d 05-21 11:40:00 [place] 10:30: [id number] 00 Neuro confusion Neuro/Emot Resolve 2018-052019-05-17 [place] present ion d 05-21 10:45:00 [place] 10:30: [id number] 00 Neuro impaired Neuro/Emot Resolve 2018-052019-05-17 [place]olis decision-ma ion d 05-21 10:45:00 [place] nir 10:30: [id number] 00 Activity ADL Activity Resolve 2018-052019-05-17 [place] assistance d 05-21 10:45:00 [place] required 10:30: [id number] 00 Activity self-care Activity Resolve 2018-052019-04-27 [place] deficit d 05-21 10:45:00 [place] 10:30: [id number] 00 Safety structural Safety Resolve 2018-052019-05-05 [place]olis barriers d 05-21 10:55:00 [place] present 10:30: [id number] 00 Safety fall risk Safety Resolve 2018-052019-05-05 [place]olis factor d 05-21 10:55:00 [place] present 10:30: [id number] 00 Safety risk for Safety Resolve 2018-052019-05-05 Lolis hospitaliza d 05-21 10:55:00 [place] tion 10:30: [id number] 00 Safety can be left Safety Active 2018-05 [place] alone for 05-21 [place] only short 10:30: [id number] 00 Safety safety Safety Resolve 2018-052019-05-05 QUALITY hazards d 05-21 10:55:00 [place] present 10:30: 00 Medication oral med Meds Resolve 2018-052019-04-20 [place] assistance d 05-21 10:55:00 [place] required 10:30: [id number] 00 Medication knowledge/s Meds Resolve 2018-052019-04-20 [place] kill d 05-21 10:55:00 [place] deficit: pt 10:30: [id number] 00 Musculoskel transfer Musculoske Resolve 2018-052019-04-27 [place] etal assistance letal d 05-21 10:45:00 [place] required 10:30: [id number] 00 Musculoskel requires Musculoske Resolve 2018-052019-04-27 [place] etal human letal d 05-21 10:45:00 [place] assist to 10:30: [id number] leave home 00 Cath/Ostomy k/s Cath\Ostom Resolve 2018-052019-03-30 [place] /GI deficit: y\GI Care d 05-21 11:40:00 [place] cath/ost/GI 10:30: [id number] care - pt 00 Balance/End balance/grain scooper PT/OT: Resolve 2018-052019-05-17 Jaquan onealance rdination Balance/En d 05-21 10:45:00 [place] deficit durance 12:07: [id number] 00 OT: Self self-care OT: Resolve 2018-052019-05-17 Jaquan Care deficit Self-Care d 05-21 10:45:00 [place] 12:07: [id number] 00 Gait/[place]ocom[place] stair PT/OT: Resolve 2018-052019-05-17 Jaquan tion management Gait/Locom d 05-21 10:45:00 [place] problems req otion 12:07: [id number] 00 Gait/[place] gait PT/OT: Resolve 2018-052019-05-17 Jaquan tion deficit Gait/Locom d 05-21 10:45:00 [place] problems otion 12:07: [id number] 00 Elimination ostomy Eliminatio Resolve 2018-052019-04-20 [place]ade present n d 1-15 10:55:00 Michael 09:55: [id number] 00 Elimination urinary Eliminatio Resolve 2018-052019-05-17 Blade incontinenc n d 2-11 10:45:00 Michael coronel 10:45: [id number] 00 Elimination ostomy Eliminatio Resolve 2018-052019-05-17 Blade present n d 2-11 10:45:00 Michael 10:45: [id number] 00 Safety risk for Safety Active 2018-05 Blade hospitaliza 07-11 Michael tion 10:50: [id number] 00 Activity ADL Activity Unknown 2018-05 Blade assistance Rodriguez required 10:45: [id number] 00 Safety fall risk Safety Active 2018-05 Blade factor Rodriguez present 10:45: [id number] 00 Allergies, Adverse Reactions, Alerts Allergy Allergy Status Severity Reaction(s) Onset Inactive Treating Comments Name Type Date Date Clinician Unknown None Active Unknown None Unknown No Known Allergies For This Patient Medications Ordered Filled Start Stop Current Ordering Indication Dosage Frequency Signature Comments Components Medication Medication Date Date Medication? Clinician (SIG) Name Name Eliquis 2.5 Eliquis 2.5 2018-05 Yes [place] Unknown Unknown mg tablet mg tablet 05-21 Fatimah STRONG metoprolol metoprolol 2018-05 Yes [place] Unknown Unknown tartrate tartrate 1-04 Fatimah STRONG 100 mg 100 mg tablet tablet Cardizem CD Cardizem CD 2018-05 Yes [place] Unknown Unknown 120 mg 120 mg 1-04 Fatimah STRONG capsule,ext capsule,ext ended ended release release multivitami multivitami 2018-05 Yes [place] Unknown Unknown n with n with - Fatimah STRONG minerals minerals tablet tablet Co Q-10 150 Co Q-10 150 2018-05 Yes [place] Unknown Unknown mg capsule mg capsule 1-04 Fatimah STRONG niacin ER niacin ER 2018-05 Yes [place] Unknown Unknown 250 mg 250 mg -04 Fatimah STRONG tablet,exte tablet,exte nded nded release release iron 27mg iron 27mg 2018-05 Yes [place] Unknown Unknown 1-04 Fatimah STRONG pravastatin pravastatin 2018-05 Yes [place] Unknown Unknown 40 mg 40 mg -15 [...]
--- OUTSIDE RECORDS SUMMARY | 2019-07-05 16:34 | XMS REPORT ---
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 05-18 Michael (congestive (congestive [id number] ) heart ) heart failure failure Paroxysmal Paroxysmal Diagnosis Active Blade atrial atrial 05-18 Michael fibrillatio fibrillatio [id number] n n 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 05-18 Michael mellitus mellitus [id number] without without complicatio complicatio ns ns Diverticuli Diverticuli Diagnosis Active Blade tis of tis of 05-18 Michael intestine, intestine, [id number] part part unspecified unspecified , without , without perforation perforation or abscess or abscess without without bleeding bleeding Anemia, Anemia, Diagnosis Active Blade unspecified unspecified 05-18 Michael [id number] Benign Benign Diagnosis Active Blade prostatic prostatic Michael hyperplasia hyperplasia [id number] without without lower lower urinary urinary tract tract symptoms symptoms Lymphocytop Lymphocytop Diagnosis Active Blade enia enia Michael [id number] Encounter Encounter Diagnosis Active Blade for mary ellen Rodriguez attention attention [id number] to to colostomy colostomy senior care senior care Diagnosis Active Blade (current) (current) Michael use of use of [id number] anticoagula anticoagula nts nts Personal Personal Diagnosis Active Blade history of history of Michael transient transient [id number] ischemic ischemic attack attack (TIA), and (TIA), and cerebral cerebral infarction infarction without without residual residual deficits deficits Presence of Presence of Diagnosis Active Blade cardiac cardiac Michael pacemaker pacemaker [id number] Presence of Presence of Diagnosis Active Blade 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 [id number] Personal Personal Diagnosis Active Blade history of history of Michael nicotine nicotine [id number] dependence dependence Problems Problems Diagnosis Active Blade related to related to Michael living living [id number] alone alone Pain frequent Pain Mgmt Resolve 2018-052019-04-20 [place] pain d 05-21 10:55:00 [place] 10:30: [id number] 00 Cardio edema Cardiovasc Active 2018-05 [place] ular 05-21 [place] 10:30: [id number] 00 Cardio knowledge/s Cardiovasc Active 2018-05 [place] kill ular 05-21 [place] deficit: pt 10:30: [id number] 00 Respiratory dyspnea Respirator Resolve 2018-052019-05-17 [place] present y d 05-21 10:45:00 [place] 10:30: [id number] 00 Endo/Justice newly Endo/Justice Resolve 2018-052019-04-08 [place] diagnosed d 05-21 09:45:00 [place] diabetes 10:30: [id number] 00 Endo/Justice diabetic Endo/Justice Resolve 2018-052019-04-08 [place] foot care d 05-21 09:45:00 [place] 10:30: [id number] 00 Endo/Justice anti-coagul Endo/Justice Resolve 2018-052019-04-08 [place] ation d 05-21 09:45:00 [place] therapy 10:30: [id number] 00 Sensory impaired Sensory Resolve 2018-052019-04-27 [place] hearing d 05-21 10:45:00 [place] 10:30: [id number] 00 Integument skin Integument Resolve 2018-052019-03-30 [place] integrity d 05-21 11:40:00 [place] risk 10:30: [id number] 00 Nutrition nutritional Nutrition Resolve 2018-052019-03-30 [place] restriction d 05-21 11:40:00 [place] s 10:30: [id number] 00 Elimination ostomy Eliminatio Resolve 2018-052019-03-30 [place] present n d 05-21 11:40:00 [place] 10:30: [id number] 00 Neuro confusion Neuro/Emot Resolve 2018-052019-05-17 [place] present ion d 05-21 10:45:00 [place] 10:30: [id number] 00 Neuro impaired Neuro/Emot Resolve 2018-052019-05-17 [place] decision-ma ion d 05-21 10:45:00 [place] nir 10:30: [id number] 00 Activity ADL Activity Resolve 2018-052019-05-17 [place] assistance d 05-21 10:45:00 [place] required 10:30: [id number] 00 Activity self-care Activity Resolve 2018-052019-04-27 [place] deficit d 05-21 10:45:00 [place] 10:30: [id number] 00 Safety structural Safety Resolve 2018-052019-05-05 [place] barriers d 05-21 10:55:00 [place] present 10:30: [id number] 00 Safety fall risk Safety Resolve 2018-052019-05-05 [place] factor d 05-21 10:55:00 [place] present 10:30: [id number] 00 Safety risk for Safety Resolve 2018-052019-05-05 Lolis hospitaliza d 05-21 10:55:00 [place] tion 10:30: [id number] 00 Safety can be left Safety Active 2018-05 [place] alone for 05-21 [place] only short 10:30: [id number] periods 00 Safety safety Safety Resolve 2018-052019-05-05 QUALITY hazards d 05-21 10:55:00 [place] present 10:30: 00 Medication oral med Meds Resolve 2018-052019-04-20 [place] assistance d 05-21 10:55:00 [place] required 10:30: [id number] 00 Medication knowledge/s Meds Resolve 2018-052019-04-20 [place] kill d 05-21 10:55:00 [place] deficit: pt 10:30: [id number] 00 Musculoskel transfer Musculoske Resolve 2018-052019-04-27 [place] etal assistance letal d 05-21 10:45:00 [place] required 10:30: [id number] 00 Musculoskel requires Musculoske Resolve 2018-052019-04-27 [place] etal human letal d 05-21 10:45:00 [place] assist to 10:30: [id number] leave home 00 Cath/Ostomy k/s Cath\Ostom Resolve 2018-052019-03-30 [place] /GI deficit: y\GI Care d 05-21 11:40:00 [place] cath/ost/GI 10:30: [id number] care - pt 00 Balance/End balance/cook ship PT/OT: Resolve 2018-052019-05-17 Jaquan onealance rdination Balance/En d 05-21 10:45:00 [place] deficit durance 12:07: [id number] 00 OT: Self self-care OT: Resolve 2018-052019-05-17 Jaquan Care deficit Self-Care d 05-21 10:45:00 [place] 12:07: [id number] 00 Gait/[place]ocomo stair PT/OT: Resolve 2018-052019-05-17 Jaquan tion management Gait/Locom d 05-21 10:45:00 [place] problems req otion 12:07: [id number] 00 Gait/[place] gait PT/OT: Resolve 2018-052019-05-17 Jaquan tion deficit Gait/Locom d 05-21 10:45:00 [place] problems otion 12:07: [id number] 00 Elimination ostomy Eliminatio Resolve 2018-052019-04-20 [place]ade present n d 1-15 10:55:00 Michael 09:55: [id number] 00 Elimination urinary Eliminatio Resolve 2018-052019-05-17 Blade incontinenc n d 2-11 10:45:00 Michael coronel 10:45: [id number] 00 Elimination ostomy Eliminatio Resolve 2018-052019-05-17 Blade present n d 2-11 10:45:00 Michael 10:45: [id number] 00 Safety risk for Safety Active 2018-05 Blade hospitaliza 07-11 Michael tion 10:50: [id number] 00 Activity ADL Activity Unknown 2018-05 Blade assistance Rodriguez required 10:45: [id number] 00 Safety fall risk Safety Active 2018-05 Blade factor Rodriguez present 10:45: [id number] 00 Allergies, Adverse Reactions, Alerts Allergy Allergy Status Severity Reaction(s) Onset Inactive Treating Comments Name Type Date Date Clinician Unknown None Active Unknown None Unknown No Known Allergies For This Patient Medications Ordered Filled Start Stop Current Ordering Indication Dosage Frequency Signature Comments Components Medication Medication Date Date Medication? Clinician (SIG) Name Name Eliquis 2.5 Eliquis 2.5 2018-05 Yes [place] Unknown Unknown mg tablet mg tablet 05-21 Fatimah STRONG metoprolol metoprolol 2018-05 Yes [place] Unknown Unknown tartrate tartrate 1-04 Fatimah STRONG 100 mg 100 mg tablet tablet Cardizem CD Cardizem CD 2018-05 Yes [place] Unknown Unknown 120 mg 120 mg 1-04 Fatimah STRONG capsule,ext capsule,ext ended ended release release multivitami multivitami 2018-05 Yes [place] Unknown Unknown n with n with - Fatimah STRONG minerals minerals tablet tablet Co Q-10 150 Co Q-10 150 2018-05 Yes [place] Unknown Unknown mg capsule mg capsule 1-04 Fatimah STRONG niacin ER niacin ER 2018-05 Yes [place] Unknown Unknown 250 mg 250 mg -04 Fatimah STRONG tablet,exte tablet,exte nded nded release release iron 27mg iron 27mg 2018-05 Yes [place] Unknown Unknown 1-04 Fatimah STRONG pravastatin pravastatin 2018-05 Yes [place] Unknown Unknown 40 mg 40 mg -15 [...]
--- OUTSIDE RECORDS SUMMARY | 2019-07-05 16:34 | XMS REPORT ---
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 05-18 Michael (congestive (congestive [id number] ) heart ) heart failure failure Paroxysmal Paroxysmal Diagnosis Active Blade atrial atrial 05-18 Michael fibrillatio fibrillatio [id number] n n 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 05-18 Michael mellitus mellitus [id number] without without complicatio complicatio ns ns Diverticuli Diverticuli Diagnosis Active Blade tis of tis of 05-18 Michael intestine, intestine, [id number] part part unspecified unspecified , without , without perforation perforation or abscess or abscess without without bleeding bleeding Anemia, Anemia, Diagnosis Active Blade unspecified unspecified 05-18 Michael [id number] Benign Benign Diagnosis Active Blade prostatic prostatic Michael hyperplasia hyperplasia [id number] without without lower lower urinary urinary tract tract symptoms symptoms Lymphocytop Lymphocytop Diagnosis Active Blade enia enia Michael [id number] Encounter Encounter Diagnosis Active Blade for mary ellen Rodriguez attention attention [id number] to to colostomy colostomy snf snf Diagnosis Active Blade (current) (current) Michael use of use of [id number] anticoagula anticoagula nts nts Personal Personal Diagnosis Active Blade history of history of Michael transient transient [id number] ischemic ischemic attack attack (TIA), and (TIA), and cerebral cerebral infarction infarction without without residual residual deficits deficits Presence of Presence of Diagnosis Active Blade cardiac cardiac Michael pacemaker pacemaker [id number] Presence of Presence of Diagnosis Active Blade 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 [id number] Personal Personal Diagnosis Active Blade history of history of Michael nicotine nicotine [id number] dependence dependence Problems Problems Diagnosis Active Blade related to related to Michael living living [id number] alone alone Pain frequent Pain Mgmt Resolve 2018-052019-04-20 [place] pain d 05-21 10:55:00 [place] 10:30: [id number] 00 Cardio edema Cardiovasc Active 2018-05 [place] ular 05-21 [place] 10:30: [id number] 00 Cardio knowledge/s Cardiovasc Active 2018-05 [place] kill ular 05-21 [place] deficit: pt 10:30: [id number] 00 Respiratory dyspnea Respirator Resolve 2018-052019-05-17 [place] present y d 05-21 10:45:00 [place] 10:30: [id number] 00 Endo/Justice newly Endo/Justice Resolve 2018-052019-04-08 [place] diagnosed d 05-21 09:45:00 [place] diabetes 10:30: [id number] 00 Endo/Justice diabetic Endo/Justice Resolve 2018-052019-04-08 [place] foot care d 05-21 09:45:00 [place] 10:30: [id number] 00 Endo/Justice anti-coagul Endo/Justice Resolve 2018-052019-04-08 [place] ation d 05-21 09:45:00 [place] therapy 10:30: [id number] 00 Sensory impaired Sensory Resolve 2018-052019-04-27 [place] hearing d 05-21 10:45:00 [place] 10:30: [id number] 00 Integument skin Integument Resolve 2018-052019-03-30 [place] integrity d 05-21 11:40:00 [place] risk 10:30: [id number] 00 Nutrition nutritional Nutrition Resolve 2018-052019-03-30 [place] restriction d 05-21 11:40:00 [place] s 10:30: [id number] 00 Elimination ostomy Eliminatio Resolve 2018-052019-03-30 [place] present n d 05-21 11:40:00 [place] 10:30: [id number] 00 Neuro confusion Neuro/Emot Resolve 2018-052019-05-17 [place] present ion d 05-21 10:45:00 [place] 10:30: [id number] 00 Neuro impaired Neuro/Emot Resolve 2018-052019-05-17 [place] decision-ma ion d 05-21 10:45:00 [place] nir 10:30: [id number] 00 Activity ADL Activity Resolve 2018-052019-05-17 [place] assistance d 05-21 10:45:00 [place] required 10:30: [id number] 00 Activity self-care Activity Resolve 2018-052019-04-27 [place] deficit d 05-21 10:45:00 [place] 10:30: [id number] 00 Safety structural Safety Resolve 2018-052019-05-05 [place] barriers d 05-21 10:55:00 [place] present 10:30: [id number] 00 Safety fall risk Safety Resolve 2018-052019-05-05 [place] factor d 05-21 10:55:00 [place] present 10:30: [id number] 00 Safety risk for Safety Resolve 2018-052019-05-05 [place] hospitaliza d 05-21 10:55:00 [place] tion 10:30: [id number] 00 Safety can be left Safety Active 2018-05 [place] alone for 05-21 [place] only short 10:30: [id number] periods 00 Safety safety Safety Resolve 2018-052019-05-05 QUALITY hazards d 05-21 10:55:00 [place] present 10:30: 00 Medication oral med Meds Resolve 2018-052019-04-20 [place] assistance d 05-21 10:55:00 [place] required 10:30: [id number] 00 Medication knowledge/s Meds Resolve 2018-052019-04-20 [place] kill d 05-21 10:55:00 [place] deficit: pt 10:30: [id number] 00 Musculoskel transfer Musculoske Resolve 2018-052019-04-27 [place] etal assistance letal d 05-21 10:45:00 [place] required 10:30: [id number] 00 Musculoskel requires Musculoske Resolve 2018-052019-04-27 [place] etal human letal d 05-21 10:45:00 [place] assist to 10:30: [id number] leave home 00 Cath/Ostomy k/s Cath\Ostom Resolve 2018-052019-03-30 [place] /GI deficit: y\GI Care d 05-21 11:40:00 [place] cath/ost/GI 10:30: [id number] care - pt 00 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 PT/OT: Resolve 2018-052019-05-17 Jaquan onealance rdination Balance/En d 05-21 10:45:00 [place] deficit durance 12:07: [id number] 00 OT: Self self-care OT: Resolve 2018-052019-05-17 Jaquan Care deficit Self-Care d 05-21 10:45:00 [place] 12:07: [id number] 00 Gait/[place] stair PT/OT: Resolve 2018-052019-05-17 Jaquan tion management Gait/Locom d 05-21 10:45:00 [place] problems req otion 12:07: [id number] 00 Gait/[place] gait PT/OT: Resolve 2018-052019-05-17 Jaquan tion deficit Gait/Locom d 05-21 10:45:00 [place] problems otion 12:07: [id number] 00 Elimination ostomy Eliminatio Resolve 2018-052019-04-20 [place] present n d 1-15 10:55:00 Michael 09:55: [id number] 00 Elimination urinary Eliminatio Resolve 2018-052019-05-17 [place] incontinenc n d 2-11 10:45:00 Michael coronel 10:45: [id number] 00 Elimination ostomy Eliminatio Resolve 2018-052019-05-17 [place]ade present n d 2-11 10:45:00 Michael 10:45: [id number] 00 Safety risk for Safety Active 2018-05 [place] hospitaliza 07-11 Michael tion 10:50: [id number] 00 Activity ADL Activity Unknown 2018-05 [place] assistance Rodriguez required 10:45: [id number] 00 Safety fall risk Safety Active 2018-05 [place] factor Rodriguez present 10:45: [id number] 00 Allergies, Adverse Reactions, Alerts Allergy Allergy Status Severity Reaction(s) Onset Inactive Treating Comments Name Type Date Date Clinician Unknown None Active Unknown None Unknown No Known Allergies For This Patient Medications Ordered Filled Start Stop Current Ordering Indication Dosage Frequency Signature Comments Components Medication Medication Date Date Medication? Clinician (SIG) Name Name Eliquis 2.5 Eliquis 2.5 2018-05 Yes [place] Unknown Unknown mg tablet mg tablet 05-21 Fatimah STRONG metoprolol metoprolol 2018-05 Yes [place] Unknown Unknown tartrate tartrate 1-04 Fatimah STRONG 100 mg 100 mg tablet tablet Cardizem CD Cardizem CD 2018-05 Yes [place] Unknown Unknown 120 mg 120 mg 1-04 Fatimah STRONG capsule,ext capsule,ext ended ended release release multivitami multivitami 2018-05 Yes [place] Unknown Unknown n with n with - Fatimah STRONG minerals minerals tablet tablet Co Q-10 150 Co Q-10 150 2018-05 Yes [place] Unknown Unknown mg capsule mg capsule 1-04 Fatimah STRONG niacin ER niacin ER 2018-05 Yes [place] Unknown Unknown 250 mg 250 mg -04 Fatimah STRONG tablet,exte tablet,exte nded nded release release iron 27mg iron 27mg 2018-05 Yes [place] Unknown Unknown 1-04 Fatimah STRONG pravastatin pravastatin 2018-05 Yes [place] Unknown Unknown 40 mg 40 mg -15 [...]
[2019-07-05 17:36] LABS: ABS Eosinophils 0.2 10^3/ul (0-0.6); ABS Lymphocytes 0.9 10^3/ul (1.0-4.8); ABS Monocytes 0.9 10^3/ul (0-0.8); ABS Neutrophils 3.9 10^3/ul (1.5-7.7); Eosinophil % 2.8 %; Hematocrit 42 % (42-52); Hemoglobin 14.4 g/dL (14.0-18.0); Mean Corpuscular HGB Conc 35 g/dL (31-36); Mean Corpuscular Hemoglobin 31 pg (27-31); Mean Corpuscular Volume 89 fL (80-94); Mean Platelet Volume 6.5 fL (7.4-10.4); Platelet Count 234 10^3/uL (150-450); Red Blood Count 4.67 10^6 /uL (4.18-5.48); Red Cell Distribution Width 14 % (10-15); White Blood Count 5.9 10^3/uL (3.5-10.8)
[2019-07-05 18:09] LABS: Calcium 9.3 mg/dL (8.6-10.3); Magnesium 1.9 mg/dL (1.9-2.7); Potassium 4.1 mmol/L (3.5-5.0); Total Bilirubin 0.6 mg/dL (0.2-1.0)
[2019-07-05 18:15] LABS: Albumin/Globulin Ratio 1.3 (1-3); BUN/Creatinine Ratio 11.9 (8-20); EGFR African American 78.8 (>60); EGFR Non-African American 65.1 (>60); Globulin 3.1 g/dL (2-4); Total Protein 7.1 g/dL (6.4-8.9)
[2019-07-05] MEDS ORDERED: NS 0.9% 1000 ML** 1,000 ML IV ONE (18:40)
--- NOTE | 2019-07-05 19:20 | ED ---
Complex/Multi-Sys Presentation - HPI Summary HPI Summary: 78 year old male presents with a low sodium yesterday. He had lab work drawn and had a sodium of 123 so was sent in for IV fluids. He states he felt fine. He has been eating and drinking as normal. No nausea or vomiting. No diarrhea. no abdominal pain. He denies any chest pain or shortness breath. Does have a history of CHF. No recent medication changes. no increase swelling in his legs. No cough. No recent illnesses. - History Of Current Complaint Chief Complaint: EDGeneral Time Seen by Provider: 07/05/19 18:22 - Allergies/Home Medications Allergies/Adverse Reactions: Allergies Allergy/AdvReac Type Severity Reaction Status Date / Time amiodarone Allergy Severe Unknown Verified 07/05/19 18:48 Reaction Details PMH/Surg Hx/FS Hx/Imm Hx Endocrine/Hematology History: Reports: Hx Anticoagulant Therapy - Coumadin, Hx Blood Transfusions, Hx Diabetes - borderline, Hx Anemia, Hx Unexplained Bleeding - nose bleeds as a kid Denies: Hx Blood Disorders, Hx Bone Marrow Disease, Hx Systemic Lupus Erythematosus, Hx Sickle Cell Disease, Hx Thyroid Disease, Other Endocrine/ Hematological Disorders Cardiovascular History: Reports: Hx Congenital Heart Disease, Hx Coronary Artery Disease, Hx Deep Vein Thrombosis - heart, Hx Embolism, Hx Hypercholesterolemia, Hx Hypertension, Hx Pacemaker/ICD, Hx Syncope, Other Cardiovascular Problems/Disorders - a-fib, jeanmarie tachy syn Denies: Hx Aneurysm, Hx Angina, Hx Angioplasty, Hx Auto Implanted Cardiovert Defib, Hx Cardiac Arrest, Hx Cardiomegaly, Hx Congestive Heart Failure, Hx Peripheral Vascular Disease, Hx Rheumatic Fever Comment Only: Hx Valvular Heart Disease - repolacement Respiratory History: Reports: Other Respiratory Problems/Disorders - sob with exertion Denies: Hx Pulmonary Edema, Hx Pulmonary Embolism GI History: Reports: Hx Diverticulosis, Hx Hiatal Hernia - in belly button, Other GI Disorders - infection current Denies: Hx Cirrhosis, Hx Crohn's Disease, Hx Gall Bladder Disease, Hx Gastroesophageal Reflux Disease, Hx Irritable Bowel, Hx Jaundice, Hx Ulcer History: Reports: Hx Benign Prostatic Hyperplasia Denies: Hx Renal Disease Musculoskeletal History: Reports: Hx Arthritis, Hx Back Problems - back pain, Hx Tendonitis Denies: Hx Bursitis, Hx Congenital Bone Abnormalities, Hx Fibromyalgia, Hx Gout, Hx Orthopedic Injury, Other Musculoskeletal History Sensory History: Reports: Hx Contacts or Glasses, Hx Hearing Aid - glasses, Hx Hearing Problem Denies: Hx Cataracts, Hx Eye Injury, Hx Glaucoma, Hx Legally Blind Opthamlomology History: Reports: Hx Contacts or Glasses Denies: Hx Cataracts, Hx Eye Injury, Hx Glaucoma, Hx Legally Blind Neurological History: Reports: Hx Headaches Denies: Hx Seizures Psychiatric History: Reports: Hx Depression Denies: Hx Panic Disorder - Cancer History Hx Chemotherapy: No - Surgical History Surgery Procedure, Year, and Place: APPENDECTOMY & TONSILECTOMY. Valve replacement in heart 2013 - [place]. right wrist I and D 2013,colostomy Hx Anesthesia Reactions: No Infectious Disease History: No Infectious Disease History: Denies: Hx Hepatitis, Traveled Outside the [place] in Last 30 Days - Family History Known Family History: Positive: Non-Contributory - Social History Alcohol Use: None Substance Use Type: Reports: None Smoking Status (MU): Former Smoker Amount Used/How Often: 30+ years ago Have You Smoked in the Last Year: No Review of Systems Negative: Fever Negative: Chest Pain Negative: Shortness Of Breath All Other Systems Reviewed And Are Negative: Yes Physical Exam Triage Information Reviewed: Yes Vital Signs On Initial Exam: Initial Vitals Temp Pulse Resp BP Pulse Ox 98.7 F 85 18 182/105 95 07/05/19 16:22 07/05/19 16:22 07/05/19 16:22 07/05/19 16:22 07/05/19 16:22 Vital Signs Reviewed: Yes Appearance: Positive: Well-Appearing Skin: Positive: Warm, Dry Head/Face: Positive: Normal Head/Face Inspection Eyes: Positive: Normal, Conjunctiva Clear ENT: Positive: Pharynx normal Respiratory/Lung Sounds: Positive: Clear to Auscultation, Breath Sounds Present Cardiovascular: Positive: Normal, RRR Abdomen Description: Positive: Nontender, Soft Bowel Sounds: Positive: Present Musculoskeletal: Positive: Normal Neurological: Positive: Normal Psychiatric: Positive: Normal Procedures - Sedation Patient Received Moderate/Deep Sedation with Procedure: No Diagnostics - Vital Signs Vital Signs Temp Pulse Resp BP Pulse Ox 07/05/19 19:00 62 91 07/05/19 18:47 63 171/95 94 07/05/19 18:45 64 93 07/05/19 16:22 98.7 F 85 18 182/105 95 - Laboratory Lab Results: Lab Results 07/05/19 07/05/19 Range/Units 17:25 17:25 WBC 5.9 (3.5-10.8) 10^3/uL RBC 4.67 (4.18-5.48) 10^6 /uL Hgb 14.4 (14.0-18.0) g/dL Hct 42 (42-52) % MCV 89 (80-94) fL MCH 31 (27-31) pg MCHC 35 (31-36) g/dL RDW 14 (10-15) % Plt Count 234 (150-450) 10^3/uL MPV 6.5 L (7.4-10.4) fL Neut % (Auto) 65.9 % Lymph % (Auto) 16.0 % Turner % (Auto) 14.8 % Eos % (Auto) 2.8 % Baso % (Auto) 0.5 % Absolute Neuts (auto) 3.9 (1.5-7.7) 10^3/ul Absolute Lymphs (auto) 0.9 L (1.0-4.8) 10^3/ul Absolute Monos (auto) 0.9 H (0-0.8) 10^3/ul Absolute Eos (auto) 0.2 (0-0.6) 10^3/ul Absolute Basos (auto) 0.0 (0-0.2) 10^3/ul Absolute Nucleated RBC 0.0 10^3/ul Nucleated RBC % 0.0 Sodium 127 L (135-145) mmol/L Potassium 4.1 (3.5-5.0) mmol/L Chloride 95 L (101-111) mmol/L Carbon Dioxide 27 (22-32) mmol/L Anion Gap 5 (2-11) mmol/L BUN 13 (6-24) mg/dL Creatinine 1.09 (0.67-1.17) mg/dL Est GFR ( Amer) 78.8 (>60) Est GFR (Non-Af Amer) 65.1 (>60) BUN/Creatinine Ratio 11.9 (8-20) Glucose 114 H (70-100) mg/dL Calcium 9.3 (8.6-10.3) mg/dL Magnesium 1.9 (1.9-2.7) mg/dL Total Bilirubin 0.60 (0.2-1.0) mg/dL AST 25 (13-39) U/L ALT 20 (7-52) U/L Alkaline Phosphatase 67 (34-104) U/L Total Protein 7.1 (6.4-8.9) g/dL Albumin 4.0 (3.2-5.2) g/dL Globulin 3.1 (2-4) g/dL Albumin/Globulin Ratio 1.3 (1-3) Result Diagrams: 07/05/19 17:25 07/05/19 20:29 Lab Statement: Any lab studies that have been ordered have been reviewed, and results considered in the medical decision making process. Complex Multi-Symp Course/Dx Course Of Treatment: 78 year old male presents with a low sodium yesterday. He had lab work drawn and had a sodium of 123 so was sent in for IV fluids. He states he felt fine. He has been eating and drinking as normal. No nausea or vomiting. No diarrhea. no abdominal pain. He denies any chest pain or shortness breath. Does have a history of CHF. No recent medication changes. no increase swelling in his legs. No cough. No recent illnesses. On physical exam has edema noted to legs. lungs CTA. sodium is 127. gave 1 liter of fluids. sodium is now 129. do not want to give more fluid as has chf. 129 is patient baseline sodium. urine shows potential uti. will treat for uti with augmentin. told follow up with primary. patient understands and agrees with the plan. - Diagnoses Differential Diagnoses/HQI/PQRI: Metabolic Abnormality, Sepsis, Urinary Tract Infection Provider Diagnoses: Hyponatremia, UTI (urinary tract infection) Discharge ED - Sign-Out/Discharge Documenting (check all that apply): Patient Departure - Discharge Plan Condition: Good Disposition: HOME Prescriptions: Amoxicillin/Clavulanate TAB* [Augmentin TAB 500 mg*] 500 mg PO BID #9 tab Patient Education Materials: Urinary Tract Infection in Men (ED), Hyponatremia (ED) Referrals: Fatimah Rush MD [Primary Care Provider] - Additional Instructions: Take augmentin twice a day for 5 days Follow up with primary within 5 days Return to ED if develop any new or worsening symptoms - Billing Disposition and Condition Condition: GOOD Disposition: Home
[2019-07-05 19:42] LABS: Urine Appearance Clear; Urine Bilirubin Negative (Negative); Urine Blood 2+ (Negative); Urine Color Yellow; Urine Glucose Negative (Negative); Urine Ketones Negative (Negative); Urine Nitrite Negative (Negative); Urine Protein Negative (Negative); Urine Specific Gravity 1.005 (1.010-1.030); Urine Urobilinogen Negative (Negative)
[2019-07-05 19:47] LABS: Urine Bacteria 1+ (Absent); Urine Red Blood Cell 2+(6-10/hpf) (Absent); Urine White Blood Cell 2+(11-20/hpf) (Absent)
[2019-07-05] MEDS ORDERED: Amoxicillin/Clavulanate TAB* 500 MG PO ONE (20:18)
[2019-07-05 21:20] VITALS: BP 155/80
== END 2019-07-05 21:10 | disposition home or self-care (01) ==
LOC: ED 16:19
DX: E87.1 Hypo-osmolality and hyponatremia (principal); N39.0 Urinary tract infection, site not specified; R60.0 Localized edema; R73.03 Prediabetes; I10 Essential (primary) hypertension; Z79.01 Long term (current) use of anticoagulants; Z95.2 Presence of prosthetic heart valve; Z86.718 Personal history of other venous thrombosis and embolism; Z95.810 Presence of automatic (implantable) cardiac defibrillator; Z88.8 Allergy status to other drugs, medicaments and biological substances; Z87.891 Personal history of nicotine dependence
CPT/HCPCS: 36415; 80053; 81003; 81015; 83735; 84300; 85025; 87077; 87086; 87186; 96360; 99284; A9270-GY